=== PATIENT | female | born 1935 | race Caucasian/White ===

== ENCOUNTER 2017-03-07 01:36 | Inpatient (IN) | payer OTHER ==
[~2017-03-07] VITALS: Ht 160 cm; Wt 95.9 kg
[~2017-03-07 01:36] MED LIST: ASPI1TAB83 PEG; CALC200T PEG; FURO20TA PEG; NTRGSL/4 UT; PRED20TA PEG; [UNRECOGNIZED DRUG - CODE] PEG
[2017-03-07] MEDS ORDERED: ASPIRIN 81 MG CHEW PO STA (02:01)
[2017-03-07] MEDS ORDERED: MoRPHine SULFATE 4 MG/ML 1 ML CARP\\VIAL IV STA (02:01)
[2017-03-07] MEDS ORDERED: ONDANSETRON INJ 2 MG/ML 2 ML VIAL IV STA (02:01)
[2017-03-07] MEDS ORDERED: METO25TA3 PO (02:12)
[2017-03-07] MEDS ORDERED: METH2.5T PO (02:13)
--- NOTE | 2017-03-07 02:13 | EMERGENCY ROOM VISIT NOTE ---
History Report prepared by Harjeet: Rikki Self Under the Supervision of: Dr. Mark Sinha D.O. First contact with patient: 01:51 Chief Complaint: CHEST PAIN Stated Complaint: CHEST PAIN Nursing Triage Summary: Pt c/o midsternal chest pain/pressure starting this evening. Pt nauseous in triage. Pt took one nitro around 1230 with no relief. History of Present Illness The patient is an 81 year old female who presents to the Emergency Room with complaints of constant chest pain that began yesterday afternoon, several hours prior to arrival. The patient describes the pain as a "tightness" that wraps around her breasts. She rates the pain as a constant 9/10 in severity since onset. There is no radiation of the pain into the arms or back. She is nauseous , but has not vomited. 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 A total of ten systems were reviewed and were otherwise negative. Past Medical & Surgical Medical Problems: (1) Benign hypertension (2) CARDIAC MURMURS NEC (3) Carotid artery stenosis (4) Cerebrovascular disease (5) Chest pain (6) Generalized osteoarthritis (7) heart failure due to valvular disease (8) History of - myocardial infarction (9) MITRAL VALVE DISORDER (10) Mitral valve regurgitation (11) POLYMYALGIA RHEUMATICA (12) Tricuspid valve regurgitation Family History No pertinent family history secondary to age. Social History Smoking Status: Never Smoker Alcohol Use: none Drug Use: none Marital Status: Current/Historical Medications Scheduled Aspirin (Aspirin Chewable), 81 MG PO DAILY Calcium Carbonate-Vitamin D (Oscal 500/200 D-3), 1 TAB PO DAILY Folic Acid (Folvite), 1 MG PO DAILY Furosemide (Lasix), 20 MG PO MWF Methotrexate (Methotrexate), 20 MG PO WK Metoprolol Succ (Toprol Xl) (Toprol-Xl), 12.5 MG PO DAILY Multivitamin (Multivitamin), 1 TAB PO DAILY Prednisone (Prednisone), 5 MG PO DAILY Scheduled PRN Furosemide (Lasix), 20 MG PO WK PRN for EDEMA Nitroglycerin (Nitrostat), 0.4 MG UT UD PRN for Chest Pain Allergies Coded Allergies: Vancomycin (Verified Allergy, Intermediate, HIVES, 03/07/17) Sulfa Drugs (Verified Allergy, Unknown, 03/07/17) Trimethoprim (Verified Allergy, Unknown, 03/07/17) Physical Exam Vital Signs Date Time Temp Pulse Resp B/P (MAP) Pulse Ox O2 Delivery O2 Flow Rate FiO2 03/07/17 03:06 79 22 97 Nasal Cannula 2.0 03/07/17 02:36 84 24 98 Nasal Cannula 2.0 03/07/17 02:32 178/74 03/07/17 02:06 88 03/07/17 02:06 76 23 97 Nasal Cannula 2.0 03/07/17 02:03 176/104 03/07/17 01:52 Room Air 03/07/17 01:52 Room Air 03/07/17 01:39 36.8 87 18 234/115 92 Room Air Physical Exam GENERAL: Awake, alert, well-appearing, in no distress HENT: Normocephalic, atraumatic. Oropharynx unremarkable. EYES: Normal conjunctiva. Sclera non-icteric. NECK: Supple. No nuchal rigidity. FROM. No JVD. RESPIRATORY: Clear to auscultation. CARDIAC: Regular rate, normal rhythm. Extremities warm and well perfused. Pulses equal. ABDOMEN: Soft, non-distended. No tenderness to palpation. No rebound or guarding. No masses. RECTAL: Deferred. MUSCULOSKELETAL: Chest examination reveals no tenderness. The back is symmetrical on inspection without obvious abnormality. There is no CVA tenderness to palpation. No joint edema. LOWER EXTREMITIES: Calves are equal size bilaterally and non-tender. No edema. No discoloration. NEURO: Normal sensorium. No sensory or motor deficits noted. SKIN: No rash or jaundice noted. Medical Decision & Procedures ER Provider Diagnostic Interpretation: X ray results as stated below per my interpretation: CHEST X-RAY: Negative for infiltrate, poor inspiratory effort. Laboratory Results 03/07/17 01:55 Red Blood Count 4.05, Mean Corpuscular Volume 93.3, Mean Corpuscular Hemoglobin 31.1, Mean Corpuscular Hemoglobin Concent 33.3, Mean Platelet Volume 12.0, Neutrophils (%) (Auto) 79.7, Lymphocytes (%) (Auto) 10.2, Monocytes (%) (Auto) 8.7, Eosinophils (%) (Auto) 1.0, Basophils (%) (Auto) 0.2, Neutrophils # (Auto) 9.88, Lymphocytes # (Auto) 1.27, Monocytes # (Auto) 1.08, Eosinophils # (Auto) 0.12, Basophils # (Auto) 0.03 03/07/17 01:55 Test 03/07/17 01:55 03/07/17 01:56 White Blood Count 12.41 K/uL (4.8-10.8) Red Blood Count 4.05 M/uL (4.2-5.4) Hemoglobin 12.6 g/dL (12.0-16.0) Hematocrit 37.8 % (37-47) Mean Corpuscular Volume 93.3 fL (80-100) Mean Corpuscular Hemoglobin 31.1 pg (25-34) Mean Corpuscular Hemoglobin Concent 33.3 g/dl (32-36) Platelet Count 230 K/uL (130-400) Mean Platelet Volume 12.0 fL (7.4-10.4) Neutrophils (%) (Auto) 79.7 % Lymphocytes (%) (Auto) 10.2 % Monocytes (%) (Auto) 8.7 % Eosinophils (%) (Auto) 1.0 % Basophils (%) (Auto) 0.2 % Neutrophils # (Auto) 9.88 K/uL (1.4-6.5) Lymphocytes # (Auto) 1.27 K/uL (1.2-3.4) Monocytes # (Auto) 1.08 K/uL (0.11-0.59) Eosinophils # (Auto) 0.12 K/uL (0-0.5) Basophils # (Auto) 0.03 K/uL (0-0.2) RDW Standard Deviation 49.0 fL (36.4-46.3) RDW Coefficient of Variation 14.4 % (11.5-14.5) Immature Granulocyte % (Auto) 0.2 % Immature Granulocyte # (Auto) 0.03 K/uL (0.00-0.02) Anion Gap 7.0 mmol/L (3-11) Est Creatinine Clear Calc Drug Dose 71.6 ml/min Estimated GFR () 94.8 Estimated GFR (Non- 81.8 BUN/Creatinine Ratio 17.7 (10-20) Calcium Level 9.1 mg/dl (8.5-10.1) Total Bilirubin 0.6 mg/dl (0.2-1) Direct Bilirubin 0.2 mg/dl (0-0.2) Aspartate Amino Transf (AST/SGOT) 20 U/L (15-37) Alanine Aminotransferase (ALT/SGPT) 24 U/L (12-78) Alkaline Phosphatase 82 U/L (45-117) Total Protein 7.8 gm/dl (6.4-8.2) Albumin 3.8 gm/dl (3.4-5.0) Bedside Troponin I < 0.030 ng/ml (0-0.045) Laboratory results reviewed by me Medications Administered Medications (Trade) Dose Ordered Sig/Jeovany Route Start Time Stop Time Status Last Admin Dose Admin Aspirin (Aspirin Chew) 162 mg NOW STAT PO 03/07/17 02:01 03/07/17 02:03 DC 03/07/17 02:18 162 MG Nitroglycerin (Nitrostat Tab) 0.4 mg Q5M PRN SL 03/07/17 02:15 04/06/17 02:14 03/07/17 02:17 0.4 MG Morphine Sulfate (MoRPHine SULFATE INJ) 4 mg NOW STAT IV 03/07/17 02:01 03/07/17 02:03 DC 03/07/17 02:17 4 MG Ondansetron HCl (Zofran Inj) 4 mg NOW STAT IV 03/07/17 02:01 03/07/17 02:03 DC 03/07/17 02:18 4 MG ECG Indication: chest pain Rate (beats per minute): 84 Rhythm: normal sinus Findings: other (LAD, no obvious ischemia ) ED Course 0156: The patient was evaluated in room B4B. A complete history and physical exam was performed. 0201: Ordered Zofran 4 mg IV, Morphine Sulfate 4 mg IV, Aspiring 162 mg PO. 0215: Nitroglycerin 0.4 mg SL. 0309: Ordered Toprol Xl Tabl 12.4 mg PO. 0250: I discussed the case with Dr. Mehdi [facility] Hospitalist at this time. He will evaluate the patient for further treatment. Medical Decision Differential diagnosis: Etiologies such as cardiac ischemia, aortic dissection, pulmonary embolism, pneumonia, pneumothorax, musculoskeletal, infections, pericarditis, myocarditis , esophageal rupture, gastrointestinal, as well as others were entertained. Patient was given aspirin, morphine, nitroglycerin patient's pain went from 8 out of 10-0 out of 10. Patient's EKG is nonischemic. Do not think that the patient has a thoracic aortic dissection or pulmonary embolism at this time. The case was discussed with family. The case was discussed with the [facility] Hospitalist for admission. Patient will be admitted for acute chest pain Blood Pressure Screening Patient's blood pressure: Elevated blood pressure Consults Time Called: 0240 Consulting Physician[facility] Returned Call: 0250 I discussed the case with Dr. Mehdi Blum at this time. He will evaluate the patient for further treatment. Impression Primary Impression: Acute angina Scribe Attestation The scribe's documentation has been prepared under my direction and personally reviewed by me in its entirety. I confirm that the note above accurately reflects all work, treatment, procedures, and medical decision making performed by me. Departure Information Dispostion Being Evaluated By Hospitalist Bing Owens M.D. (PCP) Patient Instructions My [facility]
[2017-03-07] MEDS ORDERED: PRED-301 PO (02:14)
[2017-03-07] MEDS ORDERED: ASPCH81X PO (02:14)
[2017-03-07] MEDS ORDERED: MULT-506 PO (02:14)
[2017-03-07] MEDS ORDERED: FOLI1TAB7 PO (02:14)
[2017-03-07] MEDS ORDERED: CALC200T PO (02:14)
[2017-03-07] MEDS ORDERED: NITROGLYCERIN 0.4 MG SL PER TAB CHARGE SL PRN ×2 (02:15→03:30)
[2017-03-07] MEDS ORDERED: FURO-85 PO ×2 (02:16)
[2017-03-07 02:18] LABS: BASO % 0.2 %; BASO ABS # 0.03 K/uL (0-0.2); COMPLETE YES; HEMATOCRIT 37.8 % (37-47); IG% 0.2 %; LYMPH % 10.2 %; LYMPH ABS # 1.27 K/uL (1.2-3.4); MEAN CELL VOLUME 93.3 fL (80-100); MEAN CORPUSCULAR HEMOGLOBIN 31.1 pg (25-34); MEAN CORPUSCULAR HGB CONC 33.3 g/dl (32-36); MONO % 8.7 %; NEUT % 79.7 %; PLATELET COUNT 230 K/uL (130-400); RED BLOOD COUNT 4.05 M/uL (4.2-5.4); WHITE BLOOD COUNT 12.41 K/uL (4.8-10.8)
[2017-03-07 02:36] LABS: BUN/CREATININE RATIO 17.7 (10-20); CALCIUM 9.1 mg/dl (8.5-10.1); CREATININE 0.7 mg/dl (0.60-1.20)
[2017-03-07 02:39] LABS: POTASSIUM 3.7 mmol/L (3.5-5.1)
[2017-03-07] MEDS ORDERED: METOPROLOL SUCC 25MG EXT REL TAB PO STA (03:09)
[2017-03-07 03:27] LABS: MAGNESIUM 1.8 mg/dl (1.8-2.4)
[2017-03-07] MEDS ORDERED: PROCHLORPERAZINE INJ 5 MG in SYRINGE 4 ML IV PRN (03:30)
[2017-03-07] MEDS ORDERED: FUROSEMIDE 20 MG TAB PO SCH (03:30)
[2017-03-07] MEDS ORDERED: NITROGLYCERIN 0.4 MG SL PER TAB CHARGE UT PRN (03:30)
[2017-03-07 03:33] LABS: PARTIAL THROMBOPLASTIN RATIO 0.9
[2017-03-07 04:00] VITALS: BP 144/67; PULSE 90; TEMP 36.8; O2SAT 96; Ht 160 cm; Wt 95.9 kg
[2017-03-07] MEDS ORDERED: NSS + 20MEQ KCL 1000ML 1,000 ML IV ONE (04:15)
[2017-03-07 04:52] LABS: INR 1.1 (0.9-1.1); PARTIAL THROMBOPLASTIN RATIO 1.1; PROTHROMBIN TIME (PATIENT) 11.5 SECONDS (9.0-12.0)
[2017-03-07] MEDS ORDERED: IV FLUIDS COMPLETED PRN (05:00)
--- NOTE | 2017-03-07 05:27 | HISTORY & PHYSICAL EXAMINATION ---
DATE OF ADMISSION: 03/07/2017 PCP : Dr. Montana CC : chest tightness HISTORY OF PRESENT ILLNESS: History obtained from patient, family, and records. Medical history significant for chronic diastolic heart failure as per records, EF of 55% 2017 TTE, HTN, history of CVA, PVD, as per records, polymyalgia rheumatic on chronic steroid, methotrexate therapy. Recent confinement last February 2013 for dysphagia.P Patient underwent PEG tube placement, subsequent removal outpatient. A few weeks ago, patient had a fall, unable to get up as much. Tonight patient had chest tightness, no unusual shortness of breath, little short of breath, no cough symptoms. No radiation, nonpleuritic. Chest pain does not go to the back. Patient had some nausea and emesis. Denies abdominal pain, dysuria. At the Emergency Room no immediate response to nitroglycerin Subsequently responded to additional nitroglycerin along with morphine, aspirin and Zofran. Initially systolic blood pressure noted to be 234/115. Blood pressure currently 173/104. No unusual stress at home. No recent OTC intake of NSAIDs, no dietary indiscretion. MEDICAL HISTORY: As above. TTE from 08/31/2016 showed EF 55%, diastolic dysfunction, mild calcific aortic valve, MR with mitral regurgitation, tricuspid regurgitation, moderate pulmonary hypertension, aortic root moderate enlargement . No significant change from January 2016. SURGERIES: She has had PEG tube placement in the past, appendectomy, knee replacement, carpal tunnel surgery. HOME MEDICATIONS: Aspirin, [employer], Folvite, Lasix, methotrexate, Toprol XL, multivitamins, Nitrostat, prednisone. ALLERGIES: TRIMETHOPRIM, VANCOMYCIN, SULFA. FAMILY HISTORY: Heart disease. PERSONAL AND SOCIAL HISTORY: Nonsmoker, no chronic intake of alcoholic beverages. 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 REVIEW OF SYSTEMS: As per HPI, all 10 systems reviewed. All other ROS negative. PHYSICAL EXAMINATION: LABS: Exam Blood pressure was noted to be 234/115, later 160/104, pulse rate 88, RR 22, temperature 36.8, sats 92 on room air. GENERAL: Pleasant. Noted to be slightly anxious, obese, no respiratory distress. SKIN: Normal color. Warm. HEENT: [place] palpebral conjunctiva. No ptosis. Dry buccal mucosa. NECK: Short. No tenderness. CHEST: Clear to auscultation. No tenderness. HEART: Regular rate and rhythm, systolic murmur. ABDOMEN: Some distension, nontender. EXTREMITIES: Minimal LE edema, no tenderness. No gross deformities. NEUROLOGIC: Coherent. No gross focality. LABORATORIES: Hemoglobin was noted to be 12.6, hematocrit 37.8, white cell count 12.31, platelets 230. Sodium was noted to be 136, potassium 3.7, chloride 104, CO2 28, BUN 12, creatinine 0.7, glucose 149. Troponin negative. Chest x-ray as per my interpretation atelectasis, enlarged mediastinum, prominent aortic knob. EKG as per my interpretation, rate 85, normal sinus rhythm, LAD, LAFB, some T-wave flattening in inferior leads. ASSESSMENT: 1. Chest pain secondary to hypertensive urgency unclear precipitant. 2. History of cerebrovascular accident/ peripheral vascular disease as per records 3. Chronic diastolic heart failure as per records, euvolemic to dry 4. ambulatory dysfunction, fall risk. 5. Polymyalgia rheumatica on chronic steroid, MTRX rx. 6. Steroid induced hyperglycemia ro DM PLAN: Observation PCU Increase by home PO beta quintin to twice a day dosing Follow cardiac markers. PT, OT evaluation. check hemoglobin A1c. DVT prophylaxis, Lovenox subQ. Full code. Patient requesting that her son, Mello, be updated of plan of care. DEEPTHI
--- NOTE | 2017-03-07 07:22 | DIAGNOSTIC IMAGING REPORT ---
CHEST ONE VIEW PORTABLE CLINICAL HISTORY: Chest pain. COMPARISON STUDY: Chest radiograph February 14, 2013. FINDINGS: There is no pneumothorax. A small left pleural effusion is noted. There may be a trace right pleural effusion. There is no evidence for pulmonary edema. The patient is rotated. There is prominence of the right mediastinal contour. Moderate enlargement of the cardiac silhouette is noted. There is no consolidation to suggest pneumonia. IMPRESSION: 1. Mediastinal widening with prominence for the contour of the ascending aorta. This finding may be related to patient rotation however aneurysmal dilatation of the ascending aorta could have this appearance. A dissection protocol CT of the chest is recommended. Discussed with Dr. David at time of dictation. 2. Small left pleural effusion. 3. Cardiomegaly without evidence of pulmonary edema. Electronically signed by: Alexander Franks M.D. 03/07/2017 7:21 AM Dictated Date/Time: 03/07/2017 7:02 AM
[2017-03-07 07:30] VITALS: BP 128/77; PULSE 79; TEMP 36.7; O2SAT 98
[2017-03-07] MEDS ORDERED: OPTIRAY 320 IV PRN (07:30)
[2017-03-07 08:32] LABS: URINE APPEARANCE CLEAR (CLEAR); URINE BILIRUBIN NEG (NEG); URINE COLOR DK YELLOW; URINE EPITHELIAL CELL AUTO 20-30 /lpf (0-5); URINE NITRITE NEG (NEG); URINE SPECIFIC GRAVITY 1.019 (1.000-1.030); UROBILINOGEN NEG (NEG); ZZUR CULT IF INDIC CLEAN CATCH NO
[2017-03-07 08:36] LABS: ESTIMATED AVERAGE GLUCOSE 105 mg/dl; HA1C FLAG Normal (Normal)
[2017-03-07 08:40] LABS: MANUAL MICROSCOPIC REQUIRED? NO; REVIEW REQ? NO
[2017-03-07] MEDS: ENOXAPARIN 40 MG/0.4 ML SYR SC SCH (09:00)
--- NOTE | 2017-03-07 09:22 | DIAGNOSTIC IMAGING REPORT ---
CHEST COMBO ANGIOGRAPHY CLINICAL HISTORY: R/O AORTIC DISSECTION chest pain TECHNIQUE: Multi phase CT acquisition with three-dimensional reconstruction COMPARISON STUDY: None FINDINGS: Moderate aneurysmal dilatation a sending aspect thoracic aorta. Maximum transaxial dimensions are 4.4 x 4.5 cm. The descending thoracic aorta shows mild left ischemic change but is negative for aneurysm or dissection. Heart is moderately enlarged. Pulmonary vasculature enhances appropriately. There are several indeterminate mediastinal and/or hilar nodes measuring up to 1.9 cm in the subcarinal region. There are small bilateral pleural effusions. There is bilateral lower lobe atelectasis. There are considerable degenerative changes of the thoracic spine. There are several moderate compression deformities of several lower thoracic vertebral contreras felt to be nonacute. The T10 vertebral body is partially sclerotic presumably secondary to the healing component of a previous compression deformity. IMPRESSION: 1. 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 2. Moderate cardiomegaly. 3. Moderate bilateral pleural effusions with bilateral lower lobe atelectatic/infiltrative change. 4. Several mediastinal and/or hilar nodes most likely reactive. 5. Several moderate compression deformities of the thoracic spine considered old. 6. Considerable degenerative disc change of the entire thoracic spine. The above report was generated using voice recognition software. It may contain grammatical, syntax or spelling errors. Electronically signed by: Louis Garrett M.D. 03/07/2017 9:21 AM Dictated Date/Time: 03/07/2017 9:08 AM
--- NOTE | 2017-03-07 09:29 | DIAGNOSTIC IMAGING REPORT ---
ANGIO ABD/PELVIS WITH CONTRAST CLINICAL HISTORY: 81 years-old Female with R/O AORTIC DISSECTION acute atypical chest pain with concern for aortic dissection. COMPARISON STUDY: CTA chest of same day. TECHNIQUE: Following the IV administration of 93 cc of Optiray 320, CT angiogram of the abdomen and pelvis was performed from the lung bases the proximal femora. Images are reviewed in the axial, sagittal, and coronal planes. 3-D MIPS images are created and assessed. IV contrast was administered without complication. A dose lowering technique was utilized adhering to the principles of ALARA. FINDINGS: CTA: There is at least moderate multichamber cardiac enlargement with trace pericardial effusion. Calcifications of the mitral annulus are noted. There is moderate mixed atheromatous and atherosclerotic plaquing of the abdominal aorta and iliac vasculature. There is no abdominal aortic aneurysm or dissection identified. There is mild infrarenal abdominal aortic ectasia measuring up to 2.1 x 2.2 cm. There is atherosclerotic plaquing at the level the celiac trunk causing approximately 50% narrowing. Atherosclerotic plaquing at the origin of the superior mesenteric artery causes less than 50% stenosis. The inferior mesenteric artery is patent. Atheromatous plaquing at the origin of the right renal artery causes approximately 50% narrowing. Mixed plaquing at the origin of the left renal artery is noted without significant stenosis. The bilateral common, internal and external iliac arteries and imaged femoral arteries appear patent and within normal limits. CT ABDOMEN/PELVIS: Small left and trace right pleural effusions with left greater than right bibasilar consolidation and mild bronchial wall thickening. There is mild gallbladder distention. The liver, spleen, pancreas and right adrenal gland are unremarkable. Nonspecific soft tissue attenuating nodular lesions are seen posterior to the right hepatic lobe with 2 foci noted measuring up to 1.2 x 0.7 cm (nicely seen on image 127 series 8). There is mild thickening of the left adrenal gland which is nonspecific. Additionally, there is mild stranding surrounding the left adrenal gland as seen on image 109 series 8. Mild bilateral renal cortical thinning. Low attenuating lesions of the kidneys bilaterally suggests cysts, largest of which measures 1.2 cm within the superior pole right kidney. There is no renal calculi or hydronephrosis. Ureters are unremarkable. Urinary bladder is partially collapsed. Mild wall thickening with surrounding stranding is noted involving the bladder. Calcified fibroids are seen, largest of which measures up to 2.7 x 2.4 cm within the right uterus. No definite adnexal mass lesions. No bulky adenopathy. There is no bowel obstruction or focal bowel wall thickening. Mild colonic diverticulosis without diverticulitis. No evidence of acute appendicitis. Soft tissues are unremarkable. The bones appear osteopenic. Multilevel degenerative changes of the spine. 30% anterior endplate compression deformity involves the T10 vertebral body without retropulsion identified. Additionally, there are linear lucencies noted involving the spinous processes at T9 and T10 suspicious for acute fractures. These findings appear new from comparison chest CT 07/27/2012. IMPRESSION: 1. No acute aortic dissection or aneurysm. 2. Mixed plaquing at the origin of the celiac trunk causes approximately 50% narrowing. 3. Nonspecific soft tissue attenuating nodules are seen posterior to the right hepatic lobe measuring up to 1.2 cm. 4. Small left and trace right pleural effusions with bibasilar consolidation suggesting atelectasis and/or pneumonitis. 5. 30% anterior endplate compression deformity of the T10 vertebral body without retropulsion is new from prior exam and suspicious for acute fracture. Linear lucencies involving the T9 and T10 spinous processes also seen suspicious for acute fracture. The above report was generated using voice recognition software. It may contain grammatical, syntax or spelling errors. Electronically signed by: Phuc Almanzar M.D. 03/07/2017 9:28 AM Dictated Date/Time: 03/07/2017 9:12 AM
[2017-03-07] MEDS: POTASSIUM CHLORIDE 10 MEQ TABCR PO SCH (09:50)
[2017-03-07] MEDS: MULTIVITAMIN TAB PO SCH (09:50)
[2017-03-07 11:04] VITALS: BP 103/62; PULSE 74; TEMP 38.1; O2SAT 97
--- NOTE | 2017-03-07 12:11 | CARDIOLOGY CONSULTATION ---
DATE OF CONSULTATION: 03/07/2017 REFERRING: Dr. Myrick. PRIMARY CARE PHYSICIAN: Dr. Montana. INDICATIONS: Chest and abdominal pain, marked hypertension. HISTORY OF PRESENT ILLNESS: The patient is an 81-year-old female whose history is notable for: 1. Chronic polymyalgia rheumatica on chronic prednisone therapy. 2. History of prior catecholamine-induced cardiomyopathy, July 2012 while hospitalized for multifactorial respiratory failure. 3. History of hypertension, hypertensive heart disease. 4. Dilated ascending aorta. 5. Moderate mitral and tricuspid regurgitation. 6. History of statin-induced myalgias. The patient presents this admission noting having developed severe sharp pain under the left breast and back last evening while sitting quietly, symptoms were unrelenting and not responsive to nitrates or mobility or motion are worse with twisting and standing. She subsequently presented to the Emergency Room and has been hospitalized. Evaluation since admission was included cardiac enzymes which are negative for injury or infarct, EKGs which demonstrated no acute evolution or findings with sinus and sinus tachycardia, atrial ectopic beats. CT angiography revealed no acute dissection. There is a suspicion of an acute thoracic vertebral fracture with chronic disease present. Blood pressures on initial presentation were significantly elevated, but are coming under control this morning. She continues to have a low grade level pain worse with exacerbation of movement in her left precordial and epigastric area radiating to her back. Symptoms have not resolved since admission. REVIEW OF SYSTEMS: The patient denies recent fevers, chills, sweats, cough, hoarseness, wheeze or hemoptysis. Notes no melena or hematochezia, dysuria or hematuria. Blood pressures per patient have been generally well controlled. She is active about her home to a low level degree without limitations or change in functional capacity. Appetite and weight have been stable. She denies headache or visual changes, has headache today with topical nitrates administered. ALLERGIES: SULFA AND VANCOMYCIN. MEDICATIONS PRIOR TO HOSPITALIZATION: Aspirin 81 mg per day, calcium carbonate 500/200 once per day, folic acid 1 mg per day, furosemide 20 mg Tuesday, Tuesday, Tuesday and p.r.n., methotrexate 20 mg weekly, metoprolol succinate 12.5 mg daily, multivitamin per day, and prednisone 5 mg per day. PAST SURGICAL HISTORY: Notable for prior appendectomy, knee replacement, carpal tunnel surgery. FAMILY HISTORY: Positive for heart disease in father and mother. SOCIAL HISTORY: The patient is a nonsmoker, nondrinker. She is moderately active about her home. PHYSICAL EXAMINATION: GENERAL: The patient is an age-appropriate female, in no acute distress. VITAL SIGNS: Heart rate is 74, blood pressure is 128/77. HEENT: Normocephalic, atraumatic. Nares without discharge. Throat was clear. NECK: Supple. There is no thyromegaly. There is no lymphadenopathy. There is no audible carotid bruit. LUNGS: Clear to auscultation. CARDIOVASCULAR: Regular with somewhat distant heart sounds. There is no audible murmur or rub. PMI is nondisplaced. Chest reveals marked tenderness to palpation especially with movements of left subxiphoid area. ABDOMEN: Soft, nontender. There is no palpable hepatosplenomegaly. There is no hepatojugular reflux. EXTREMITIES: Without cyanosis or clubbing. There is no peripheral edema. There are intact distal pulses. There is no break or femoral delay. NEUROLOGIC: The patient is alert, answering questions appropriately. LABORATORY DATA: On presentation, white cell count is 12.4, hemoglobin is 12.6. Sodium was 139, potassium 3.7, chloride 104, bicarbonate 28, BUN 12, creatinine 0.7, glucose is 149. AST and ALT are normal. Troponin I is negative on 2 testings. Albumin level is 3.8, lipase is 100. IMAGING DATA: Chest x-ray revealed no infiltrate or edema. CT scan of the chest demonstrated chronic aneurysmal dilatation of the ascending thoracic aorta, diffuse degenerative disease of the spine. CTA to exclude aortic dissection revealed no evidence of aortic dissection with intravascular plaquing. There was notable T10 vertebral fracture, suspicious for acute fracture. IMPRESSION: An 81-year-old female with history of past catecholamine-mediated cardiomyopathy in 2012, longstanding hypertension, hypertensive heart disease with prior normal left ventricular function, presents now with severe chest and back pain. Symptoms appear to be mediated by possible vertebral fracture with negative cardiac enzymes, negative CT angiography and no acute findings on EKG. I agree with upward titration of beta blockers to 12.5 mg of metoprolol twice per day. Blood pressures have come under control since admission, but will need to be followed closely in hospital. The patient's pain remains persistent and likely to be mediated by vertebral fracture in the setting of multiple risk factors including chronic steroid use, osteoporosis. Will follow the patient in the hospital.
[2017-03-07] MEDS: TRAMADOL HCL 50 MG TAB PO PRN (14:21)
[2017-03-07] MEDS: HYDROmorphone INJ 0.5 MG/0.5 ML SYR IV PRN ×2 (15:29→20:06)
[2017-03-07 15:37] VITALS: BP 157/82; PULSE 84; TEMP 37.9; O2SAT 87
[2017-03-07 20:00] VITALS: BP 131/79; PULSE 88; TEMP 37.3; O2SAT 92
[2017-03-07] MEDS: METOPROLOL SUCC 25MG EXT REL TAB PO SCH (20:04)
[2017-03-08] VITALS (7 sets, daily range): BP systolic 123–179; BP diastolic 65–80; PULSE 72–94; TEMP 36.7–37.2; O2SAT 90–99
[2017-03-08] MEDS: ACETAMINOPHEN 325 MG TAB PO PRN ×2 (05:24→17:49)
[2017-03-08 06:29] LABS: BASO % 0.1 %; BASO ABS # 0.01 K/uL (0-0.2); COMPLETE YES; EOS % 0.1 %; HEMATOCRIT 33.3 % (37-47); IG% 0.1 %; LYMPH % 12.7 %; LYMPH ABS # 1.03 K/uL (1.2-3.4); MEAN CELL VOLUME 94.6 fL (80-100); MEAN CORPUSCULAR HEMOGLOBIN 30.7 pg (25-34); MEAN CORPUSCULAR HGB CONC 32.4 g/dl (32-36); MEAN PLATELET VOLUME 11.8 fL (7.4-10.4); MONO % 14.8 %; NEUT % 72.2 %; PLATELET COUNT 167 K/uL (130-400); RED BLOOD COUNT 3.52 M/uL (4.2-5.4); WHITE BLOOD COUNT 8.12 K/uL (4.8-10.8)
[2017-03-08 07:01] LABS: BUN/CREATININE RATIO 26.2 (10-20); CALCIUM 8.8 mg/dl (8.5-10.1); CREATININE 0.6 mg/dl (0.60-1.20); POTASSIUM 3.8 mmol/L (3.5-5.1)
[2017-03-08] MEDS ORDERED: METHOTREXATE 2.5 MG TAB PO SCH (08:00)
[2017-03-08] MEDS: ASPIRIN 81 MG ECTAB PO SCH (08:42)
[2017-03-08] MEDS: POTASSIUM CHLORIDE 10 MEQ TABCR PO SCH (08:42)
[2017-03-08] MEDS: ENOXAPARIN 40 MG/0.4 ML SYR SC SCH (08:42)
[2017-03-08] MEDS: MULTIVITAMIN TAB PO SCH (08:45)
[2017-03-08] MEDS: METOPROLOL SUCC 25MG EXT REL TAB PO SCH ×2 (08:45→20:33)
--- NOTE | 2017-03-08 12:44 | Pain Management Consultation ---
Pain Management Consultation Date of Consultation Mar 08, 2017. Reason for Consultation 81-year-old female reporting inferior portion of sternum discomfort since a fall in January 2017. She states the pain is worse with deep palpation and better with tramadol and shallow breathing. She states that it is difficult at times to catch her breath due to deep pressure and aching discomfort. She denies any radiation component of her pain whether be wrapping around her chest or to the back. She states the pain ranges between 3 and 8 out of 10 currently 3 out of 10. She has not tried any interventional techniques and has only utilize Tylenol prior to admission for pain control. On CT imaging during this hospitalization she was noted to have a acute T10 compression fracture which she states is mildly tender but not very problematic for her. She states that she's had low-grade low back pain for a number of decades but nothing serious enough to warrant evaluation. The bowel or bladder incontinence, motor weakness, foot drop, additional falls at today's visit. 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 (16) Chest pain (17) Acute angina Family History Family Hx Review: history personally reviewed by me Social / Work History Alcohol Use: none Drug Use: none Marital Status: Housing Status: lives alone Occupation: retired Allergies Coded Allergies: Vancomycin (Verified Allergy, Intermediate, HIVES, 03/07/17) Sulfa Drugs (Verified Allergy, Unknown, 03/07/17) Trimethoprim (Verified Allergy, Unknown, 03/07/17) Medications Current Inpatient Medications Medications (Trade) Dose Ordered Sig/Jeovany Route Start Time Stop Time Status Last Admin Dose Admin Metoprolol Succinate (Toprol Xl Tab) 12.5 mg BID PO 03/07/17 21:00 04/06/17 20:59 03/08/17 08:45 12.5 MG Enoxaparin Sodium (Lovenox Inj) 40 mg Q24H SC 03/07/17 09:00 04/06/17 08:59 12/5/17 08:42 40 MG Acetaminophen (Tylenol Tab) 650 mg Q4H PRN PO 03/07/17 03:30 04/06/17 03:29 03/08/17 05:24 650 MG Tramadol HCl (Ultram Tab) 25 mg Q6H PRN PO 03/07/17 03:30 04/06/17 03:29 03/07/17 14:21 25 MG Hydromorphone HCl (Dilaudid Inj) 0.5 mg Q4H PRN IV 03/07/17 03:30 03/21/17 03:29 03/07/17 20:06 0.5 MG Prochlorperazine Edisylate 5 mg/ Syringe 5 ml @ 5 mls/min Q6H PRN IV 03/07/17 03:30 04/06/17 03:29 Aspirin (Ecotrin Tab) 81 mg QAM PO 03/08/17 09:00 04/07/17 08:59 03/08/17 08:42 81 MG Folic Acid (Folvite Tab) 1 mg DAILY PO 03/07/17 09:00 04/06/17 08:59 03/08/17 08:42 1 MG Multivitamins (Multivitamin Tab) 1 tab DAILY PO 03/07/17 09:00 04/06/17 08:59 03/08/17 08:45 1 TAB Nitroglycerin (Nitrostat Tab) 0.4 mg UD PRN UT 03/07/17 03:30 04/06/17 03:29 Prednisone (PredniSONE TAB) 5 mg DAILY PO 03/07/17 09:00 04/06/17 08:59 03/08/17 08:45 5 MG Potassium Chloride (Klor-Con M10) 20 meq DAILY PO 03/07/17 09:00 04/06/17 08:59 03/08/17 08:42 20 MEQ Methotrexate (Methotrexate Tab) 20 mg Tu@0800 PO 03/08/17 08:00 04/07/17 07:59 03/08/17 08:45 20 MG Miscellaneous (Iv Fluids Completed) 1 ea PRN PRN N/A 03/07/17 05:00 03/07/18 04:59 Ioversol (Optiray 320) 125 ml UD PRN IV 03/07/17 07:30 03/11/17 07:29 Review of Systems 10 point review of systems was otherwise negative aside from HPI Physical Exam Height & Weight: Height 5 feet, 3.00 inches. Weight 98.400 (Kilograms) 208 (Pounds) Last Vital Signs Documentation Date Time Temp Pulse Resp B/P (MAP) Pulse Ox O2 Delivery O2 Flow Rate FiO2 03/08/17 11:29 36.9 94 20 123/79 (94) 90 03/08/17 07:30 Nasal Cannula 2.0 Exam: GENERAL: 81-year-old female who is awake, alert and oriented. Appears well developed. Is in no distress at the present time. He is accompanied by her brother on today's examination PSYCHIATRIC: Demonstrates normal and clear sensorium. Mood and affect are appropriate. Short-term and long-term memory is intact. HEAD AND NECK: No obvious trauma. Demonstrates slightly decreased range of motion of the cervical spine. No lymphadenopathy is noted. Trachea midline. No thyromegaly noted. EARS, EYES AND NOSE: Mucous membranes pink and moist. No mucosal lesions noted. Tongue midline. LUNGS: No audible wheezes or rhonchi Normal chest excursion. She has re- creation of her pain to deep palpation over her inferior costochondral joints. There is possibility that a solitary trigger point exists in addition to break regression of her pain over her costochondral region. She does not have increasing pain to deep palpation over the rest of her rib cage. BREASTS: Deferred. CARDIAC: Regular rate and rhythm ABDOMEN: Normal bowel sounds. Soft nontender. No organomegaly appreciated. BACK: Inspection of the lumbar spine demonstrates decreased lordotic curvatures. No lesions are noted in the lumbar spine region. Provocative testing of the facet joints and the sacroiliac joints bilaterally including 5 provocative tests are negative. No myofascial tenderness or trigger points identifiable in the paraspinous musculature. Neurologically, straight leg raising is negative bilaterally past 90 and no changes noted Achilles stretch. She does have mild tenderness over around T10 but not anything I would grade higher than mild NEUROLOGICAL: Cranial nerves II through XII grossly intact. No gross sensory or motor deficits noted in the upper extremity. Sensation and motor strength in the lower extremity are symmetrical without deficit. No pathologic reflexes are noted in the lower extremities. Reflexes: Of bilateral upper and lower extremities were graded at 1+. Gait was not observed Laboratory Laboratory Review: results personally reviewed by me Laboratory Results (Last CBC): 03/07/2017 LFTs within normal limits 03/08/17 06:00 Red Blood Count 3.52 L, Mean Corpuscular Volume 94.6, Mean Corpuscular Hemoglobin 30.7, Mean Corpuscular Hemoglobin Concent 32.4, Mean Platelet Volume 11.8 H, Neutrophils (%) (Auto) 72.2, Lymphocytes (%) (Auto) 12.7, Monocytes (%) (Auto) 14.8, Eosinophils (%) (Auto) 0.1, Basophils (%) (Auto) 0.1, Neutrophils # (Auto) 5.86, Lymphocytes # (Auto) 1.03 L, Monocytes # (Auto) 1.20 H, Eosinophils # (Auto) 0.01, Basophils # (Auto) 0.[address] Findings Patient: CARMEN LEE Address1: [address] [place] [address] Rec: [id number] Address2: Acct ID: [id number] [facility] Zip: [place] [address] Date: 1935 Sex: F Room/Bed: [facility] Ref Phy: Omid Montana D.O. SC: [email or web address] Att Phy: Mello David M.D. Report #: [id number] Cinthia Phy: Omid Montana D.O. Test: CXCA Admit Phy: Waqas Myrick M.D. Desktop Specialist: TOPHER Interpreting Phy: Louis Garrett M.D. Diagnosis: CHEST PAIN Ordering Phy: Mello David M.D. Service Date: 03/07/17 Admit Date: 03/07/1712/04/17 MNE: [id number] CONF: DICTATED BY: Louis Garrett M.D.]] CC: Omid Montana D.O. Wong, Gary K., M.D. Endcc: [~ rep ct add3]] CHEST COMBO ANGIOGRAPHY CLINICAL HISTORY: R/O AORTIC DISSECTION chest pain TECHNIQUE: Multi phase CT acquisition with three-dimensional reconstruction COMPARISON STUDY: None FINDINGS: Moderate aneurysmal dilatation a sending aspect thoracic aorta. Maximum transaxial dimensions are 4.4 x 4.5 cm. The descending thoracic aorta shows mild left ischemic change but is negative for aneurysm or dissection. Heart is moderately enlarged. Pulmonary vasculature enhances appropriately. There are several indeterminate mediastinal and/or hilar nodes measuring up to 1.9 cm in the subcarinal region. There are small bilateral pleural effusions. There is bilateral lower lobe atelectasis. There are considerable degenerative changes of the thoracic spine. There are several moderate compression deformities of several lower thoracic vertebral contreras felt to be nonacute. The T10 vertebral body is partially sclerotic presumably secondary to the healing component of a previous compression deformity. IMPRESSION: 1. 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 2. Moderate cardiomegaly. 3. Moderate bilateral pleural effusions with bilateral lower lobe atelectatic/infiltrative change. 4. Several mediastinal and/or hilar nodes most likely reactive. 5. Several moderate compression deformities of the thoracic spine considered old. 6. Considerable degenerative disc change of the entire thoracic spine. No rib fractures noted on CT after review with radiologist today 03/08/2017 Past Records Previous Records: none available for review Opioid Risk Assessment Risk assessment performed, no issues identified Assessment 1. Atypical chest pain suspect costochondritis 2. Polymyalgia rheumatica on steroids chronically 3. T10 compression fracture without significant retropulsion 4. Lumbago Recommendations 1. Will add Lidoderm patch today to diminish pain. Orders were written. She may continue to utilize tramadol on a when necessary basis as required for pain control. 2. Consider addition of nonsteroidal anti-inflammatory if okay with hospitalist. Orders were not written 3. Could consider possible costochondral joint injection in the future should she fail conservative measures 4. As patient is not having significant amount of pain over her T10 compression fracture site would not recommend bracing at this time but could consider in the future should she have increasing pain. She is not a candidate for kyphoplasty in my opinion at this time 5. Will follow up with her tomorrow to determine if injection is warranted.
[2017-03-08] MEDS: TRAMADOL HCL 50 MG TAB PO PRN ×2 (13:01→23:40)
--- NOTE | 2017-03-08 17:46 | Progress Note ---
Medicine Progress Note Date & Time of Visit: Mar 08, 2017 at 17:45. Subjective Patient was initially seen this morning. Patient reports having symptoms only when she is standing or moving around. She denies pain at rest. Denies any other symptoms at this time. Tolerating PO without difficulty. Was paged later in the evening that the patient was having SOB/chest tightness but not chest pain. States her symptoms are improving but she feels she has a nonproductive cough and some wheezing. Objective Last 8 Hrs Date Time Temp Pulse Resp B/P (MAP) Pulse Ox O2 Delivery O2 Flow Rate FiO2 03/08/17 16:00 92 Room Air 03/08/17 16:00 37.2 72 20 176/71 (106) 92 Room Air 03/08/17 12:00 94 Room Air 03/08/17 11:29 36.9 94 20 123/79 (94) 90 Physical Exam: GENERAL: Patient is in no acute distress. HEENT: No acute trauma, normocephalic, mucous membranes moist, no nasal congestion, no scleral icterus. Conjunctivae clear NECK: No stridor, trachea is midline. LUNGS: Clear to auscultation bilaterally, no wheeze, no rhonchi, breath sounds equal. HEART: Without murmurs gallops or rubs, regular rate and rhythm. ABDOMEN: Soft, nontender, bowel sounds positive, no hepatosplenomegaly EXTREMITIES: No cyanosis or edema NEUROLOGIC: Oriented x 3, no acute motor or sensory deficits, no focal weakness. SKIN: No rash, no jaundice, no diaphoresis. Laboratory Results: Last 24 Hours Test 03/08/17 06:00 White Blood Count 8.12 K/uL Red Blood Count 3.52 M/uL Hemoglobin 10.8 g/dL Hematocrit 33.3 % Mean Corpuscular Volume 94.6 fL Mean Corpuscular Hemoglobin 30.7 pg Mean Corpuscular Hemoglobin Concent 32.4 g/dl Platelet Count 167 K/uL Mean Platelet Volume 11.8 fL Neutrophils (%) (Auto) 72.2 % Lymphocytes (%) (Auto) 12.7 % Monocytes (%) (Auto) 14.8 % Eosinophils (%) (Auto) 0.1 % Basophils (%) (Auto) 0.1 % Neutrophils # (Auto) 5.86 K/uL Lymphocytes # (Auto) 1.03 K/uL Monocytes # (Auto) 1.20 K/uL Eosinophils # (Auto) 0.01 K/uL Basophils # (Auto) 0.01 K/uL RDW Standard Deviation 49.7 fL RDW Coefficient of Variation 14.5 % Immature Granulocyte % (Auto) 0.1 % Immature Granulocyte # (Auto) 0.01 K/uL Sodium Level 138 mmol/L Potassium Level 3.8 mmol/L Chloride Level 103 mmol/L Carbon Dioxide Level 29 mmol/L Anion Gap 6.0 mmol/L Blood Urea Nitrogen 16 mg/dl Creatinine 0.60 mg/dl Est Creatinine Clear Calc Drug Dose 83.6 ml/min Estimated GFR () 99.8 Estimated GFR (Non- 86.1 BUN/Creatinine Ratio 26.2 Random Glucose 92 mg/dl Calcium Level 8.8 mg/dl Magnesium Level 2.0 mg/dl Assessment & Plan ATYPICAL CHEST PAIN: -likely secondary to hypertensive urgency or musculoskeletal origin -does not seem associated with indigestion or eating -Cardiology consulted, appreciate recs, not likely from cardiac etiology -repeat a CXR given complaints of cough/wheezing per patient T10 VERTEBRAL COMPRESSION FRACTURE: -pain control -Pain management consulted for additional recommendations, appreciate recs HX OF CVA and PVD -as per records -continue on ASA and bp control CHRONIC DIASTOLIC HEART FAILURE: -euvolemic to dry -monitor fluid status AMBULATORY DYSFUNCTION: -fall risk PMR: -continued on chronic steroids HYPERGLYCEMIA: -likely steroid induced -HbA1c 5.3% -monitor Current Inpatient Medications: Current Inpatient Medications Medications (Trade) Dose Ordered Sig/Jeovany Route Start Time Stop Time Status Last Admin Dose Admin Metoprolol Succinate (Toprol Xl Tab) 12.5 mg BID PO 03/07/17 21:00 04/06/17 20:59 03/08/17 08:45 12.5 MG Enoxaparin Sodium (Lovenox Inj) 40 mg Q24H SC 03/07/17 09:00 04/06/17 08:59 03/08/17 08:42 40 MG Acetaminophen (Tylenol Tab) 650 mg Q4H PRN PO 03/07/17 03:30 04/06/17 03:29 03/08/17 05:24 650 MG Tramadol HCl (Ultram Tab) 25 mg Q6H PRN PO 03/07/17 03:30 1/3/18 03:29 03/08/17 13:01 25 MG Hydromorphone HCl (Dilaudid Inj) 0.5 mg Q4H PRN IV 03/07/17 03:30 03/21/17 03:29 03/07/17 20:06 0.5 MG Prochlorperazine Edisylate 5 mg/ Syringe 5 ml @ 5 mls/min Q6H PRN IV 03/07/17 03:30 04/06/17 03:29 Aspirin (Ecotrin Tab) 81 mg QAM PO 03/08/17 09:00 04/07/17 08:59 03/08/17 08:42 81 MG Folic Acid (Folvite Tab) 1 mg DAILY PO 03/07/17 09:00 04/06/17 08:59 03/08/17 08:42 1 MG Multivitamins (Multivitamin Tab) 1 tab DAILY PO 03/07/17 09:00 04/06/17 08:59 03/08/17 08:45 1 TAB Nitroglycerin (Nitrostat Tab) 0.4 mg UD PRN UT 03/07/17 03:30 04/06/17 03:29 Prednisone (PredniSONE TAB) 5 mg DAILY PO 03/07/17 09:00 04/06/17 08:59 03/08/17 08:45 5 MG Potassium Chloride (Klor-Con M10) 20 meq DAILY PO 03/07/17 09:00 04/06/17 08:59 03/08/17 08:42 20 MEQ Methotrexate (Methotrexate Tab) 20 mg Tu@0800 PO 03/08/17 08:00 04/07/17 07:59 03/08/17 08:45 20 MG Miscellaneous (Iv Fluids Completed) 1 ea PRN PRN N/A 03/07/17 05:00 03/07/18 04:59 Ioversol (Optiray 320) 125 ml UD PRN IV 03/07/17 07:30 03/11/17 07:29 Lidocaine (Lidoderm Patch 5%) 1 patch QAM TD 03/09/17 09:00 04/08/17 08:59 Miscellaneous (Remove Lidoderm Patch) 1 ea DAILY@21 N/A 03/08/17 21:00 04/07/17 20:59
[2017-03-08] MEDS ORDERED: ALBUT/IPRATROP 3MG/0.5MG NEB 3 ML VIAL INH PRN (19:00)
[2017-03-09] VITALS (14 sets, daily range): BP systolic 117–177; BP diastolic 67–88; PULSE 68–132; TEMP 36.4–37.2; O2SAT 95–99
[2017-03-09] MEDS: MULTIVITAMIN TAB PO SCH (07:23)
[2017-03-09] MEDS: POTASSIUM CHLORIDE 10 MEQ TABCR PO SCH (07:23)
[2017-03-09] MEDS: ASPIRIN 81 MG ECTAB PO SCH (07:23)
[2017-03-09] MEDS: LIDODERM (LIDOCAINE) PATCH 5% TD SCH (07:24)
[2017-03-09] MEDS: ENOXAPARIN 40 MG/0.4 ML SYR SC SCH (07:24)
[2017-03-09] MEDS: METOPROLOL SUCC 25MG EXT REL TAB PO SCH (07:58)
--- NOTE | 2017-03-09 09:28 | Pain Management Progress Note ---
Pain Management Progress Note Date of Service Mar 09, 2017. Subjective Mrs. Bhagat is an 81 year old white female with pain in the sternal region radiating bilaterally under the breasts. She states that she was experiencing increased pain last night with positional changes and had difficulty sleeping. This morning a Lidocaine patch was applied onto her chest and reports moderate pain relief. Pain is currently 2/10. Patient is able to make more positional changes and is pleased with the current pain relief results. She feels like she is able to take in a deeper breath since yesterday. No coughing, abdominal pain, changed back pain, or constitutional complaints. Case discussed with Dr. Shcmitz Pain Location 1 - Objective Vital Signs: Last Vital Signs Documentation Date Time Temp Pulse Resp B/P (MAP) Pulse Ox O2 Delivery O2 Flow Rate FiO2 03/09/17 07:45 Nasal Cannula 2.0 03/09/17 07:20 36.8 73 18 139/67 (91) 98 Physical Exam: GENERAL: Mrs. Bhagat is an 81 y/o white female that appears her stated age. Speech and cognition is intact. Mood and affect is appropriate. Sitting in the exam room, in no acute distress. CHEST: Regular chest respiration and excursion. There is tenderness along the inferior costosternal and costochondral joints. There is no intercostal tenderness. Mild increase in pain with AP and lateral chest compression. NEURO: CN II-XII grossly intact with no focal deficits noted. AAO x 3. SKIN: No lesions, erythema, or rashes noted. Laboratory Laboratory Findings 03/08/17 06:00 Red Blood Count 3.52 L, Mean Corpuscular Volume 94.6, Mean Corpuscular Hemoglobin 30.7, Mean Corpuscular Hemoglobin Concent 32.4, Mean Platelet Volume 11.8 H, Neutrophils (%) (Auto) 72.2, Lymphocytes (%) (Auto) 12.7, Monocytes (%) (Auto) 14.8, Eosinophils (%) (Auto) 0.1, Basophils (%) (Auto) 0.1, Neutrophils # (Auto) 5.86, Lymphocytes # (Auto) 1.03 L, Monocytes # (Auto) 1.20 H, Eosinophils # (Auto) 0.01, Basophils # (Auto) 0.01 Assessment 1. Atypical chest pain suspect costochondritis 2. Polymyalgia rheumatica on steroids chronically 3. T10 compression fracture without significant retropulsion 4. Lumbago Recommendations 1. Continue Tramadol and Lidocaine patch 2. Patient reports adequate pain relief since the application of the Lidocaine patch this morning. 3. Plan to see the patient tomorrow, if she continues to uncontrolled pain tonight then a costochondral joint injection may be warranted.
[2017-03-09] MEDS ORDERED: METOPROLOL TARTRATE 25 MG TAB PO ONE (13:45)
[2017-03-09 14:07] LABS: BUN/CREATININE RATIO 28.7 (10-20); CALCIUM 9.1 mg/dl (8.5-10.1); CREATININE 0.54 mg/dl (0.60-1.20); POTASSIUM 4.3 mmol/L (3.5-5.1)
[2017-03-09 14:47] LABS: BASO % 0.1 %; BASO ABS # 0.01 K/uL (0-0.2); EOS % 0.7 %; HEMATOCRIT 38.1 % (37-47); IG% 0.2 %; LYMPH % 8.1 %; LYMPH ABS # 0.77 K/uL (1.2-3.4); MEAN CORPUSCULAR HEMOGLOBIN 30.9 pg (25-34); MEAN PLATELET VOLUME 12.4 fL (7.4-10.4); MONO % 5.7 %; NEUT % 85.2 %; PLATELET COUNT 223 K/uL (130-400); RED BLOOD COUNT 4.01 M/uL (4.2-5.4); WHITE BLOOD COUNT 9.47 K/uL (4.8-10.8)
[2017-03-09 14:53] LABS: COMPLETE YES; MEAN CORPUSCULAR HGB CONC 32.5 g/dl (32-36)
[2017-03-09 15:00] LABS: PARTIAL THROMBOPLASTIN RATIO 1.2; PROTHROMBIN TIME (PATIENT) 10.3 SECONDS (9.0-12.0)
[2017-03-09] MEDS: HEPARIN 25,000 UNIT/500ML D5W 500 ML IV PRN (16:03)
--- NOTE | 2017-03-09 19:08 | Progress Note ---
Medicine Progress Note Date & Time of Visit: Mar 09, 2017 at 18:59. Subjective Patient reports feeling better today; only feels SOB or palpitations when up ambulating. Pain is better controlled today. Overnight was having some wheezing and was given a duoneb treatment which she states was helpful. No other events noted. Patient aware of changes on telemetry and the atrial fibrillation that was apparent. Objective Last 8 Hrs Date Time Temp Pulse Resp B/P (MAP) Pulse Ox O2 Delivery O2 Flow Rate FiO2 03/09/17 16:12 97 Nasal Cannula 2.0 03/09/17 15:49 36.4 110 19 137/75 (95) 97 Nasal Cannula 2.0 03/09/17 14:26 132 117/81 (93) 03/09/17 12:32 37.2 124 18 139/85 (103) 97 Nasal Cannula 2.0 03/09/17 12:30 Nasal Cannula 2.0 03/09/17 11:31 36.8 120 20 136/88 (104) 95 Nasal Cannula 2.0 Physical Exam: GENERAL: Patient is in no acute distress. HEENT: No acute trauma, normocephalic, mucous membranes moist, no nasal congestion, no scleral icterus. Conjunctivae clear NECK: No stridor, trachea is midline. LUNGS: Clear to auscultation bilaterally, no wheeze, no rhonchi, breath sounds equal. HEART: Without murmurs gallops or rubs, regular rate and rhythm. ABDOMEN: Soft, nontender, bowel sounds positive, no hepatosplenomegaly EXTREMITIES: No cyanosis or edema NEUROLOGIC: Oriented x 3, no acute motor or sensory deficits, no focal weakness. SKIN: No rash, no jaundice, no diaphoresis. Laboratory Results: Last 24 Hours Test 03/09/17 13:30 03/09/17 14:39 Sodium Level 138 mmol/L Potassium Level 4.3 mmol/L Chloride Level 105 mmol/L Carbon Dioxide Level 26 mmol/L Anion Gap 6.0 mmol/L Blood Urea Nitrogen 16 mg/dl Creatinine 0.54 mg/dl Est Creatinine Clear Calc Drug Dose 91.6 ml/min Estimated GFR () 103.3 Estimated GFR (Non- 89.1 BUN/Creatinine Ratio 28.7 Random Glucose 154 mg/dl Calcium Level 9.1 mg/dl Magnesium Level 2.0 mg/dl White Blood Count 9.47 K/uL Red Blood Count 4.01 M/uL Hemoglobin 12.4 g/dL Hematocrit 38.1 % Mean Corpuscular Volume 95.0 fL Mean Corpuscular Hemoglobin 30.9 pg Mean Corpuscular Hemoglobin Concent 32.5 g/dl Platelet Count 223 K/uL Mean Platelet Volume 12.4 fL Neutrophils (%) (Auto) 85.2 % Lymphocytes (%) (Auto) 8.1 % Monocytes (%) (Auto) 5.7 % Eosinophils (%) (Auto) 0.7 % Basophils (%) (Auto) 0.1 % Neutrophils # (Auto) 8.06 K/uL Lymphocytes # (Auto) 0.77 K/uL Monocytes # (Auto) 0.54 K/uL Eosinophils # (Auto) 0.07 K/uL Basophils # (Auto) 0.01 K/uL RDW Standard Deviation 48.9 fL RDW Coefficient of Variation 14.3 % Immature Granulocyte % (Auto) 0.2 % Immature Granulocyte # (Auto) 0.02 K/uL Prothrombin Time 10.3 SECONDS Prothromb Time International Ratio 1.0 Activated Partial Thromboplast Time 30.3 SECONDS Partial Thromboplastin Ratio 1.2 Assessment & Plan NEW ONSET ATRIAL FIBRILLATION: -was initially intermittent and since this morning has been sustained -CHAD2-VASC score of 7 (prior CVA, PVD, and CHF) -started on metoprolol this admission which was titrated up to 25mg BID; spoke with Cardiology who recommended increasing to TID -IV heparin started -Cardiology aware -TTE ordered ATYPICAL CHEST PAIN: -likely secondary to hypertensive urgency or musculoskeletal origin -does not seem associated with indigestion or eating -Cardiology consulted, appreciate recs, not likely from cardiac etiology -repeat a CXR given complaints of cough/wheezing per patient T10 VERTEBRAL COMPRESSION FRACTURE: -pain control -Pain management consulted for additional recommendations, appreciate recs -imaging also showed multiple old compression deformities of the vertebral bodies HX OF CVA and PVD -as per records -continued on ASA -bp control CHRONIC DIASTOLIC HEART FAILURE: -euvolemic to dry -monitor fluid status AMBULATORY DYSFUNCTION: -fall risk PMR: -continued on chronic steroids HYPERGLYCEMIA: -likely steroid induced -HbA1c 5.3% -monitor Current Inpatient Medications: Current Inpatient Medications Medications (Trade) Dose Ordered Sig/Jeovany Route Start Time Stop Time Status Last Admin Dose Admin Acetaminophen (Tylenol Tab) 650 mg Q4H PRN PO 03/07/17 03:30 04/06/17 03:29 03/08/17 17:49 650 MG Tramadol HCl (Ultram Tab) 25 mg Q6H PRN PO 03/07/17 03:30 04/06/17 03:29 03/08/17 23:40 25 MG Hydromorphone HCl (Dilaudid Inj) 0.5 mg Q4H PRN IV 03/07/17 03:30 03/21/17 03:29 03/07/17 20:06 0.5 MG Prochlorperazine Edisylate 5 mg/ Syringe 5 ml @ 5 mls/min Q6H PRN IV 03/07/17 03:30 04/06/17 03:29 Aspirin (Ecotrin Tab) 81 mg QAM PO 03/08/17 09:00 04/07/17 08:59 03/09/17 07:23 81 MG Folic Acid (Folvite Tab) 1 mg DAILY PO 03/07/17 09:00 04/06/17 08:59 03/09/17 07:23 1 MG Multivitamins (Multivitamin Tab) 1 tab DAILY PO 03/07/17 09:00 04/06/17 08:59 03/09/17 07:23 1 TAB Nitroglycerin (Nitrostat Tab) 0.4 mg UD PRN UT 03/07/17 03:30 04/06/17 03:29 Prednisone (PredniSONE TAB) 5 mg DAILY PO 03/07/17 09:00 04/06/17 08:59 03/09/17 07:23 5 MG Potassium Chloride (Klor-Con M10) 20 meq DAILY PO 03/07/17 09:00 04/06/17 08:59 03/09/17 07:23 20 MEQ Methotrexate (Methotrexate Tab) 20 mg Tu@0800 PO 03/08/17 08:00 04/07/17 07:59 03/08/17 08:45 20 MG Miscellaneous (Iv Fluids Completed) 1 ea PRN PRN N/A 03/07/17 05:00 03/07/18 04:59 Ioversol (Optiray 320) 125 ml UD PRN IV 03/07/17 07:30 03/11/17 07:29 Lidocaine (Lidoderm Patch 5%) 1 patch QAM TD 03/09/17 09:00 04/08/17 08:59 03/09/17 07:24 1 PATCH Miscellaneous (Remove Lidoderm Patch) 1 ea DAILY@21 N/A 03/08/17 21:00 04/07/17 20:59 Albuterol/ Ipratropium (Duoneb) 3 ml Q6H PRN INH 03/08/17 19:00 04/07/17 18:59 03/09/17 02:45 3 ML Metoprolol Tartrate (Lopressor Tab) 25 mg TID PO 03/09/17 21:00 04/06/17 20:59 Heparin Sodium/ Dextrose 500 ml @ 25 mls/hr Q20H PRN IV 03/09/17 15:00 04/08/17 14:59 03/09/17 16:03 25 MLS/HR
[2017-03-09] MEDS: METOPROLOL TARTRATE 25 MG TAB PO SCH (20:11)
[2017-03-09] MEDS ORDERED: METOPROLOL SUCC 25MG EXT REL TAB PO SCH (21:00)
[2017-03-09 23:21] LABS: PARTIAL THROMBOPLASTIN RATIO 1.8
[2017-03-10] VITALS (10 sets, daily range): BP systolic 119–135; BP diastolic 53–86; PULSE 66–116; TEMP 36.4–36.7; O2SAT 98–100
[2017-03-10] MEDS ORDERED: HEPARIN IV BOLUS 3,000 UNIT in SYRINGE 0 ML IV ONE (01:00)
[2017-03-10] MEDS: HEPARIN 25,000 UNIT/500ML D5W 500 ML IV PRN ×2 (01:06→10:32)
[2017-03-10] MEDS ORDERED: METOPROLOL TARTRATE 1 MG/ML VIAL ONE (06:28)
[2017-03-10] MEDS ORDERED: METOPROLOL TARTRATE 1 MG/ML VIAL IV ONE (06:30)
[2017-03-10 07:20] LABS: HEMATOCRIT 37.6 % (37-47); MEAN CORPUSCULAR HEMOGLOBIN 31.5 pg (25-34); MEAN CORPUSCULAR HGB CONC 33.5 g/dl (32-36); MEAN PLATELET VOLUME 12.4 fL (7.4-10.4); PLATELET COUNT 231 K/uL (130-400); WHITE BLOOD COUNT 7.09 K/uL (4.8-10.8)
[2017-03-10 07:36] LABS: PARTIAL THROMBOPLASTIN RATIO 2.4
[2017-03-10 07:56] LABS: CREATININE 0.57 mg/dl (0.60-1.20)
[2017-03-10] MEDS: LIDODERM (LIDOCAINE) PATCH 5% TD SCH (08:08)
--- NOTE | 2017-03-10 08:08 | Pain Management Progress Note ---
Pain Management Progress Note Date of Service Mar 10, 2017. Subjective Patient is an 81-year-old white female admitted with chest tightness and shortness of breath. Blood pressure was determined to be significantly elevated upon admission. Patient also has a history of polymyalgia rheumatica on chronic steroid therapy and methotrexate. Pain management consultation occurred due to the anterior chest wall pain which was felt to be likely a presentation of costochondral pain. Patient is at this time reporting minimal pain in the anterior chest wall describing more of a tightness sensation with some shortness of breath. She feels the Lidoderm patch has been beneficial at diminishing the discomfort. She has not utilized tramadol or IV hydromorphone over the past 24-36 hours. She is rating her current pain at a 0/10, ranging between a 0-3/10. Patient has no new neurologic or further constitutional complaints at this time. Plan of care discussed with Dr. Schmitz. Objective Vital Signs: Last Vital Signs Documentation Date Time Temp Pulse Resp B/P (MAP) Pulse Ox O2 Delivery O2 Flow Rate FiO2 03/10/17 06:33 155 128/64 03/10/17 04:47 36.4 16 99 Nasal Cannula 2.0 Physical Exam: Gen.: Patient sitting up quietly in exam room in no acute distress. Speech and thought process appropriate. Mood and affect appropriate. Cognition intact. Chest: Patient is minimally tender over the costosternal junction on the right the lower sternal border. No direct rib or intercostal tenderness appreciated. She is nontender with AP and lateral compression. Skin: No evidence of rash over the anterior chest wall at site of pain complaints. Neurologic: Cranial nerves grossly intact. Ambulatory function normal. Laboratory Laboratory Findings 03/10/17 07:10 Assessment 1. Anterior chest wall pain-suspect costochondritis 2. History of polymyalgia rheumatica on chronic steroids and methotrexate 3. T10 compression fracture without significant retropulsion 4. New onset atrial fibrillation Recommendations 1. Will recommend continuing with lidocaine patch 2. When necessary tramadol 3. Would defer costochondral joint injection at this time. The patient may follow-up with pain management the outpatient clinic with persisting complaints for consideration of costochondral joint injection and she verbalized understanding. 4. Will sign off on the patient at this time. Please contact us for further input during this admission as needed.
[2017-03-10] MEDS: MULTIVITAMIN TAB PO SCH (08:09)
[2017-03-10] MEDS: ASPIRIN 81 MG ECTAB PO SCH (08:09)
[2017-03-10] MEDS: METOPROLOL TARTRATE 25 MG TAB PO SCH (08:09)
[2017-03-10] MEDS: POTASSIUM CHLORIDE 10 MEQ TABCR PO SCH (08:09)
[2017-03-10] MEDS: TRAMADOL HCL 50 MG TAB PO PRN (08:14)
[2017-03-10] MEDS ORDERED: SOTALOL HCL 80 MG TAB PO ONE (09:31)
--- NOTE | 2017-03-10 14:29 | PROGRESS NOTE ---
DATE: 03/10/2017 The patient seen and examined. Chart, medications, telemetry reviewed. SUBJECTIVE: The patient yesterday lapsed into atrial fibrillation with elevated ventricular response rate, sensation of palpitations, no acute distal discomfort, rates are slightly better this morning after oral metoprolol increase. She had been appropriately anticoagulated, pain with motion and positional changes is improved. OBJECTIVE: VITAL SIGNS: Heart rate is 110. Blood pressure is 124/73. HEENT: Normocephalic and atraumatic. Nares without discharge. Throat was clear. NECK: Supple without thyromegaly or lymphadenopathy. There is no jugular venous distention at 30 degrees. LUNGS: Reveal mildly diminished breath sounds. CARDIOVASCULAR: Irregular, irregular. There is no S3 gallop. ABDOMEN: Soft, nontender. EXTREMITIES: Without cyanosis or clubbing. There is no peripheral edema. IMAGING STUDIES: EKG yesterday demonstrated atrial fibrillation with rapid ventricular response, rate 129, voltage criteria for left ventricular hypertrophy with atrial fibrillation, new onset. LABORATORY STUDIES: This morning, potassium is 4.3, renal functions normal. BUN is 16, creatinine 0.54. IMPRESSION: An 81-year-old female with issues as follows: 1. Admission for acute positional pain, possibly in association with T10 vertebral fracture. 2. New onset atrial fibrillation with high AKHIL score. The patient appropriately initiated on IV heparin. We will transition to warfarin. The patient will need probable gastrointestinal prophylaxis given chronic prednisone use, methotrexate, and now oral anticoagulation, may consider discontinuing aspirin, though when placed for history of prior transient ischemic attack, stroke. We will initiate antiarrhythmic therapy, hopefully, will return to sinus rhythm given recent onset atrial fibrillation, discontinuing metoprolol and adding sotalol 80 mg twice per day, first dose today. We will follow the patient in the hospital. EKG is ordered for a.m.
[2017-03-10] MEDS ORDERED: WARFARIN SOD 5 MG TAB PO ONE (16:00)
[2017-03-10] MEDS: SOTALOL HCL 80 MG TAB PO SCH (16:46)
--- NOTE | 2017-03-10 19:24 | Progress Note ---
Medicine Progress Note Date & Time of Visit: Mar 10, 2017 at 19:23. Subjective Patient reports feeling ok, denies any complaints of chest pain or tightness. Breathing is better overall. Has not been able to sleep well. No overnight events noted. No other complaints at this time. Tolerating activity. Objective Last 8 Hrs Date Time Temp Pulse Resp B/P (MAP) Pulse Ox O2 Delivery O2 Flow Rate FiO2 03/10/17 16:07 36.4 96 18 119/86 (97) 98 Nasal Cannula 2.0 03/10/17 16:00 98 Nasal Cannula 2.0 03/10/17 12:03 36.4 109 20 124/73 (90) 100 Nasal Cannula 2.0 03/10/17 12:01 99 Nasal Cannula 2.0 Physical Exam: GENERAL: Patient is in no acute distress. HEENT: No acute trauma, normocephalic, mucous membranes moist, no nasal congestion, no scleral icterus. Conjunctivae clear NECK: No stridor, trachea is midline. LUNGS: Clear to auscultation bilaterally, no wheeze, no rhonchi, breath sounds equal. HEART: Without murmurs gallops or rubs, irregularly irregular ABDOMEN: Soft, nontender, bowel sounds positive, no hepatosplenomegaly EXTREMITIES: No cyanosis or edema NEUROLOGIC: Oriented x 3, no acute motor or sensory deficits, no focal weakness. SKIN: No rash, no jaundice, no diaphoresis. Laboratory Results: Last 24 Hours Test 03/09/17 22:54 03/10/17 07:10 Activated Partial Thromboplast Time 46.5 SECONDS 63.3 SECONDS Partial Thromboplastin Ratio 1.8 2.4 White Blood Count 7.09 K/uL Red Blood Count 4.00 M/uL Hemoglobin 12.6 g/dL Hematocrit 37.6 % Mean Corpuscular Volume 94.0 fL Mean Corpuscular Hemoglobin 31.5 pg Mean Corpuscular Hemoglobin Concent 33.5 g/dl RDW Standard Deviation 47.7 fL RDW Coefficient of Variation 14.0 % Platelet Count 231 K/uL Mean Platelet Volume 12.4 fL Creatinine 0.57 mg/dl Est Creatinine Clear Calc Drug Dose 86.7 ml/min Estimated GFR () 101.5 Estimated GFR (Non- 87.6 Assessment & Plan NEW ONSET ATRIAL FIBRILLATION: -was initially intermittent and since yesterday has been sustained -CHAD2-VASC score of 7 (prior CVA, PVD, and CHF) -started on metoprolol this admission which was titrated up to 25mg BID; spoke with Cardiology who recommended increasing to TID; -on IV heparin, coumadin started today also -Cardiology stopped metoprolol today in favor of starting sotalol BID -TTE ordered ATYPICAL CHEST PAIN: improved -likely secondary to hypertensive urgency or musculoskeletal origin -does not seem associated with indigestion or eating -Cardiology consulted, appreciate recs, not likely from cardiac etiology -repeat a CXR given complaints of cough/wheezing per patient T10 VERTEBRAL COMPRESSION FRACTURE: -pain controlled -Pain management consulted for additional recommendations, appreciate recs -imaging also showed multiple old compression deformities of the vertebral bodies HX OF CVA and PVD -as per records -continued on ASA -bp control CHRONIC DIASTOLIC HEART FAILURE: -euvolemic to dry -monitor fluid status AMBULATORY DYSFUNCTION: -fall risk PMR: -continued on chronic steroids + methotrexate HYPERGLYCEMIA: -likely steroid induced -HbA1c 5.3% -monitor Current Inpatient Medications: Current Inpatient Medications Medications (Trade) Dose Ordered Sig/Jeovany Route Start Time Stop Time Status Last Admin Dose Admin Acetaminophen (Tylenol Tab) 650 mg Q4H PRN PO 03/07/17 03:30 04/06/17 03:29 03/08/17 17:49 650 MG Tramadol HCl (Ultram Tab) 25 mg Q6H PRN PO 03/07/17 03:30 04/06/17 03:29 03/10/17 08:14 25 MG Hydromorphone HCl (Dilaudid Inj) 0.5 mg Q4H PRN IV 03/07/17 03:30 03/21/17 03:29 03/07/17 20:06 0.5 MG Prochlorperazine Edisylate 5 mg/ Syringe 5 ml @ 5 mls/min Q6H PRN IV 03/07/17 03:30 04/06/17 03:29 Aspirin (Ecotrin Tab) 81 mg QAM PO 03/08/17 09:00 04/07/17 08:59 03/10/17 08:09 81 MG Folic Acid (Folvite Tab) 1 mg DAILY PO 03/07/17 09:00 04/06/17 08:59 03/10/17 08:09 1 MG Multivitamins (Multivitamin Tab) 1 tab DAILY PO 03/07/17 09:00 04/06/17 08:59 03/10/17 08:09 1 TAB Nitroglycerin (Nitrostat Tab) 0.4 mg UD PRN UT 03/07/17 03:30 04/06/17 03:29 Prednisone (PredniSONE TAB) 5 mg DAILY PO 03/07/17 09:00 04/06/17 08:59 03/10/17 08:09 5 MG Potassium Chloride (Klor-Con M10) 20 meq DAILY PO 03/07/17 09:00 04/06/17 08:59 03/10/17 08:09 20 MEQ Methotrexate (Methotrexate Tab) 20 mg Tu@0800 PO 03/08/17 08:00 04/07/17 07:59 03/08/17 08:45 20 MG Miscellaneous (Iv Fluids Completed) 1 ea PRN PRN N/A 03/07/17 05:00 03/07/18 04:59 Ioversol (Optiray 320) 125 ml UD PRN IV 03/07/17 07:30 03/11/17 07:29 Lidocaine (Lidoderm Patch 5%) 1 patch QAM TD 03/09/17 09:00 04/08/17 08:59 03/10/17 08:08 1 PATCH Miscellaneous (Remove Lidoderm Patch) 1 ea DAILY@21 N/A 03/08/17 21:00 04/07/17 20:59 03/10/17 19:21 1 EA Albuterol/ Ipratropium (Duoneb) 3 ml Q6H PRN INH 03/08/17 19:00 04/07/17 18:59 03/09/17 02:45 3 ML Heparin Sodium/ Dextrose 500 ml @ 28 mls/hr [id number] PRN IV 03/09/17 15:00 04/08/17 14:59 03/10/17 10:32 28 MLS/HR Sotalol HCl (Betapace Tab) 80 mg BID17 PO 03/10/17 17:00 04/09/17 16:59 03/10/17 16:46 80 MG
--- NOTE | 2017-03-10 20:35 | ECHOCARDIOGRAM REPORT ---
*NOTICE TO RECEIVING [employer] This information is strictly Confidential and protected under [place] law. [place] law prohibits you from making any further disclosure of this information unless further disclosure is expressly permitted by the written consent of the person to whom it pertains or is authorized by law. A general authorization for the release of medical or other information is not sufficient for this purpose. Hospital accepts no responsibility if the information is made available to any other person, INCLUDING THE PATIENT. Interpretation Summary * Name: CARMEN LEE Study Date: 03/10/2017 02:24 PM BP: 124/73 mmHg * Patient Location: [facility]\S\N277\S\1 HR: 108 * : 1935 (M/d/yyyy) Gender: Female Height: 63 in * Age: 81 yrs Ethnicity: [place] Weight: 211 lb * Ordering Physician: Kimberly Stearns * Referring Physician: Self, Referred * Performed By: Adry Randall RCS * * Reason For Study: A-FIB * BSA: 2.0 m2 * The study was technically adequate. * Compared to prior study, changes are noted. * -- Conclusions -- * The rhythm is atrial fibrillation. * Ejection Fraction = 50-55%. * There is moderate concentric left ventricular hypertrophy. * The left atrium is moderately dilated. * Aortic valve sclerosis moderate, without significant aortic valvular stenosis. * Mild aortic regurgitation. * There is mild to moderate mitral regurgitation. * There is mild to moderate tricuspid regurgitation. * Doppler findings do not suggest pulmonary hypertension. * Mildly dilated ascending aorta. Procedure Details * A complete two-dimensional transthoracic echocardiogram was performed (2D, M-mode, Doppler and color flow Doppler). Left Ventricle * The left ventricle is normal in size. * The rhythm is atrial fibrillation. * There is moderate concentric left ventricular hypertrophy. * Left ventricular systolic function is normal. * Ejection Fraction = 50-55%. * No regional wall motion abnormalities noted. Right Ventricle * The right ventricle is normal size. * The right ventricular systolic function is normal as assessed by tricuspid annular plane systolic excursion (TAPSE) (normal >1.5 cm). Atria * The left atrium is moderately dilated. * The right atrium is moderately dilated. * There is no evidence of atrial septal defect, but resolution does not allow assessment for a patent foramen ovale. Mitral Valve * There is mild mitral annular calcification. * The mitral valve leaflets appear thickened, but open well. * There is no mitral valve stenosis. * There is mild to moderate mitral regurgitation. Tricuspid Valve * The tricuspid valve is normal. * There is no tricuspid stenosis. * There is mild to moderate tricuspid regurgitation. * Doppler findings do not suggest pulmonary hypertension. Aortic Valve * The aortic valve is trileaflet. * Aortic valve sclerosis moderate, without significant aortic valvular stenosis. * Aortic stenosis is absent. * Mild aortic regurgitation. Pulmonic Valve * The pulmonary valve is not well seen, but the Doppler examination is normal without significant regurgitation or stenosis. Great Vessels * The aortic root is normal size. * Mildly dilated ascending aorta. Pericardium/Pleural * There is no pericardial effusion. Great Vessels * Normal inferior vena cava diameter and respiratory variation suggests normal central venous pressure. Left Ventricular Diastolic Function * Abnormal diastolic function. MMode 2D Measurements and Calculations IVSd 1.8 cm IVSs 2.0 cm LVIDd 3.2 cm LVIDs 2.5 cm LVPWd 1.5 cm LVPWs 1.8 cm IVS/LVPW 1.2 FS 21.0 % EDV(Teich) 41.3 ml ESV(Teich) 23.2 ml EF(Teich) 43.9 % EDV(cubed) 33.1 ml ESV(cubed) 16.3 ml EF(cubed) 50.7 % % IVS thick 14.2 % % LVPW thick 20.3 % LV mass(C)d 196.9 grams LV mass(C)dI 99.5 grams/m\S\2 LV mass(C)s 198.3 grams LV mass(C)sI 100.2 grams/m\S\2 SV(Teich) 18.1 ml SI(Teich) 9.2 ml/m\S\2 SV(cubed) 16.8 ml SI(cubed) 8.5 ml/m\S\2 Ao root diam 3.0 cm Ao root area 6.9 cm\S\2 ACS 1.4 cm LA dimension 4.2 cm LA/Ao 1.4 LVOT diam 2.0 cm LVOT area 3.1 cm\S\2 LVAd ap4 20.4 cm\S\2 LVLd ap4 6.2 cm EDV(MOD-sp4) 55.4 ml EDV(sp4-el) 57.5 ml LVAs ap4 13.2 cm\S\2 LVLs ap4 5.4 cm ESV(MOD-sp4) 26.5 ml ESV(sp4-el) 27.2 ml EF(MOD-sp4) 52.1 % EF(sp4-el) 52.6 % LVAd ap2 18.2 cm\S\2 LVLd ap2 5.6 cm EDV(MOD-sp2) 49.8 ml EDV(sp2-el) 50.3 ml LVAs ap2 12.9 cm\S\2 LVLs ap2 4.7 cm ESV(MOD-sp2) 29.0 ml ESV(sp2-el) 29.5 ml EF(MOD-sp2) 41.7 % EF(sp2-el) 41.3 % LVLd %diff -10.69 % EDV(MOD-bp) 55.6 ml LVLs %diff -14.45 % ESV(MOD-bp) 29.4 ml EF(MOD-bp) 47.0 % SV(MOD-sp4) 28.9 ml SI(MOD-sp4) 14.6 ml/m\S\2 SV(MOD-sp2) 20.8 ml SI(MOD-sp2) 10.5 ml/m\S\2 SV(MOD-bp) 26.1 ml SI(MOD-bp) 13.2 ml/m\S\2 SV(sp4-el) 30.2 ml SI(sp4-el) 15.3 ml/m\S\2 SV(sp2-el) 20.8 ml SI(sp2-el) 10.5 ml/m\S\2 Doppler Measurements and Calculations MV E max magdiel 133.2 cm/sec MV P1/2t max magdiel 135.5 cm/sec MV P1/2t 80.0 msec MVA(P1/2t) 2.8 cm\S\2 MV dec slope 496.0 cm/sec\S\2 Ao V2 max 172.1 cm/sec Ao max PG 11.8 mmHg Ao max PG (full) 7.6 mmHg BRIANNE(V,A) 1.9 cm\S\2 BRIANNE(V,D) 1.9 cm\S\2 AI max magdiel 394.2 cm/sec AI max PG 62.2 mmHg AI dec slope 225.8 cm/sec\S\2 AI P1/2t 511.2 msec LV V1 max PG 4.2 mmHg LV V1 max 103.0 cm/sec MR max magdiel 453.9 cm/sec MR max PG 82.8 mmHg PA V2 max 82.8 cm/sec PA max PG 2.7 mmHg PI max magdiel 181.1 cm/sec PI max PG 13.1 mmHg PI dec slope 197.5 cm/sec\S\2 PI P1/2t 268.5 msec TR max magdiel 220.9 cm/sec
[2017-03-11] VITALS (12 sets, daily range): BP systolic 148–187; BP diastolic 74–123; PULSE 68–90; TEMP 36.5–36.8; O2SAT 92–100
[2017-03-11] MEDS: HEPARIN 25,000 UNIT/500ML D5W 500 ML IV PRN ×2 (04:38→22:39)
[2017-03-11 07:09] LABS: BASO % 0.6 %; BASO ABS # 0.04 K/uL (0-0.2); COMPLETE YES; EOS % 3.5 %; HEMATOCRIT 35.8 % (37-47); IG% 0.3 %; LYMPH % 22.7 %; LYMPH ABS # 1.44 K/uL (1.2-3.4); MEAN CELL VOLUME 93.7 fL (80-100); MEAN CORPUSCULAR HEMOGLOBIN 31.2 pg (25-34); MEAN CORPUSCULAR HGB CONC 33.2 g/dl (32-36); MONO % 8.4 %; NEUT % 64.5 %; PLATELET COUNT 238 K/uL (130-400); RED BLOOD COUNT 3.82 M/uL (4.2-5.4); WHITE BLOOD COUNT 6.34 K/uL (4.8-10.8)
[2017-03-11 07:23] LABS: INR 1.1 (0.9-1.1); PARTIAL THROMBOPLASTIN RATIO 2.3; PROTHROMBIN TIME (PATIENT) 11.3 SECONDS (9.0-12.0)
[2017-03-11] MEDS: ASPIRIN 81 MG ECTAB PO SCH (08:11)
[2017-03-11] MEDS: SOTALOL HCL 80 MG TAB PO SCH ×2 (08:11→17:34)
[2017-03-11] MEDS: LIDODERM (LIDOCAINE) PATCH 5% TD SCH (08:12)
[2017-03-11] MEDS: POTASSIUM CHLORIDE 10 MEQ TABCR PO SCH (08:12)
[2017-03-11] MEDS: MULTIVITAMIN TAB PO SCH (08:12)
[2017-03-11] MEDS ORDERED: PANTOprazole SOD 40 MG TAB PO SCH (09:00)
--- NOTE | 2017-03-11 09:29 | CARDIOLOGY PROGRESS NOTE ---
DATE: 03/11/2017 DATE: 03/11/2017 The patient seen and examined. Chart, laboratory studies, telemetry reviewed. SUBJECTIVE: The patient feels improved this morning. Notes no specific complaints. Pain is better controlled. Notes no breathing difficulties. Notes no chest pains. The patient spontaneously converted to sinus yesterday after initiation of antiarrhythmic therapy with sotalol. She notes no bleeding difficulties. Notes no melena, hematochezia, dysuria or hematuria. Does note some mild pedal edema but diuretics have been held since admission. PHYSICAL EXAMINATION: VITAL SIGNS: Heart rate 68, blood pressure is 148/86. HEAD, EYES, EARS, NOSE, AND THROAT: Normocephalic, atraumatic. NECK: Thin. There is no jugular venous distention. LUNGS: Reveal mildly diminished breath sounds, but are clear. Chest tenderness is improved. ABDOMEN: Soft, nontender. EXTREMITIES: Without cyanosis or clubbing. There is 1-2+ lower extremity edema. LABORATORY DATA: Today, white cell count 6.3, hemoglobin is 11.9. Electrolytes are pending. INR is 1.1. IMPRESSION: An 81-year-old female admitted with chest pain and abdominal pain, back pain consistent with referred musculoskeletal issues from likely vertebral fracture clinically improved. The patient lapsing into atrial fibrillation during this admission. The patient is once again back in sinus rhythm. We will review EKG for this morning. Echocardiogram done yesterday reveals no significant valvular disease with mild aortic, mitral and tricuspid insufficiency. RECOMMENDATIONS: Resume diuretic. Patient previously on furosemide 20 mg 3 days per week. Dose will be administered this morning with mild volume overload on assessment. Will continue sotalol 80 mg twice per day. Continue initiation of anticoagulation with warfarin and maintain on telemetry for additional 24 hours given initiation of antiarrhythmic therapy.
[2017-03-11] MEDS ORDERED: FUROSEMIDE 40 MG TAB PO ONE (09:30)
[2017-03-11 10:04] LABS: BUN/CREATININE RATIO 27.2 (10-20); CALCIUM 8.9 mg/dl (8.5-10.1); CREATININE 0.56 mg/dl (0.60-1.20); POTASSIUM 4.4 mmol/L (3.5-5.1)
[2017-03-11] MEDS: FAMOTIDINE 20 MG TAB PO SCH ×2 (10:32→20:49)
[2017-03-11] MEDS ORDERED: LISINOPRIL 2.5 MG TAB PO ONE (17:00)
[2017-03-11] MEDS ORDERED: WARFARIN SOD 5 MG TAB PO ONE (17:15)
--- NOTE | 2017-03-11 19:37 | Progress Note ---
Medicine Progress Note Date & Time of Visit: Mar 11, 2017 at 19:37. Subjective Patient doing well, denies any symptoms of SOB or chest pain. No overnight events noted. Tolerating PO. Has no new complaints. Has been ambulating without difficulty. Son at the bedside and was updated. Objective Last 8 Hrs Date Time Temp Pulse Resp B/P (MAP) Pulse Ox O2 Delivery O2 Flow Rate FiO2 03/11/17 19:26 36.8 74 18 156/74 (101) 96 Room Air 03/11/17 16:00 97 Room Air 03/11/17 15:56 36.8 88 18 186/123 (144) 95 03/11/17 12:06 100 Nasal Cannula Physical Exam: GENERAL: Patient is in no acute distress. HEENT: No acute trauma, normocephalic, mucous membranes moist, no nasal congestion, no scleral icterus. Conjunctivae clear NECK: No stridor, trachea is midline. LUNGS: Clear to auscultation bilaterally, no wheeze, no rhonchi, breath sounds equal. HEART: Without murmurs gallops or rubs, RR, S1 and S2 auscultated ABDOMEN: Soft, nontender, bowel sounds positive, no hepatosplenomegaly EXTREMITIES: No cyanosis; B/L LE edema NEUROLOGIC: Oriented x 3, no acute motor or sensory deficits, no focal weakness. SKIN: No rash, no jaundice, no diaphoresis. Laboratory Results: Last 24 Hours Test 03/11/17 06:57 White Blood Count 6.34 K/uL Red Blood Count 3.82 M/uL Hemoglobin 11.9 g/dL Hematocrit 35.8 % Mean Corpuscular Volume 93.7 fL Mean Corpuscular Hemoglobin 31.2 pg Mean Corpuscular Hemoglobin Concent 33.2 g/dl Platelet Count 238 K/uL Mean Platelet Volume 12.0 fL Neutrophils (%) (Auto) 64.5 % Lymphocytes (%) (Auto) 22.7 % Monocytes (%) (Auto) 8.4 % Eosinophils (%) (Auto) 3.5 % Basophils (%) (Auto) 0.6 % Neutrophils # (Auto) 4.09 K/uL Lymphocytes # (Auto) 1.44 K/uL Monocytes # (Auto) 0.53 K/uL Eosinophils # (Auto) 0.22 K/uL Basophils # (Auto) 0.04 K/uL RDW Standard Deviation 47.8 fL RDW Coefficient of Variation 14.0 % Immature Granulocyte % (Auto) 0.3 % Immature Granulocyte # (Auto) 0.02 K/uL Prothrombin Time 11.3 SECONDS Prothromb Time International Ratio 1.1 Activated Partial Thromboplast Time 60.9 SECONDS Partial Thromboplastin Ratio 2.3 Sodium Level 138 mmol/L Potassium Level 4.4 mmol/L Chloride Level 104 mmol/L Carbon Dioxide Level 26 mmol/L Anion Gap 7.0 mmol/L Blood Urea Nitrogen 15 mg/dl Creatinine 0.56 mg/dl Est Creatinine Clear Calc Drug Dose 88.5 ml/min Estimated GFR () 102.1 Estimated GFR (Non- 88.1 BUN/Creatinine Ratio 27.2 Random Glucose 104 mg/dl Calcium Level 8.9 mg/dl Assessment & Plan NEW ONSET ATRIAL FIBRILLATION: -was initially intermittent and since yesterday has been sustained -CHAD2-VASC score of 7 (prior CVA, PVD, and CHF) -started on metoprolol this admission which was titrated up, this was then stopped and sotalol was started by Cardio -on IV heparin + coumadin (INR 1.1) -Cardiology stopped metoprolol today in favor of starting sotalol BID -TTE Report: * -- Conclusions -- * The rhythm is atrial fibrillation. * Ejection Fraction = 50-55%. * There is moderate concentric left ventricular hypertrophy. * The left atrium is moderately dilated. * Aortic valve sclerosis moderate, without significant aortic valvular stenosis. * Mild aortic regurgitation. * There is mild to moderate mitral regurgitation. * There is mild to moderate tricuspid regurgitation. * Doppler findings do not suggest pulmonary hypertension. * Mildly dilated ascending aorta. ATYPICAL CHEST PAIN: improved -likely secondary to hypertensive urgency or musculoskeletal origin -does not seem associated with indigestion or eating -Cardiology consulted, appreciate recs, not likely from cardiac etiology but more likely musculoskeletal T10 VERTEBRAL COMPRESSION FRACTURE: -pain controlled -Pain management consulted for additional recommendations, appreciate recs -imaging also showed multiple old compression deformities of the vertebral bodies HX OF CVA and PVD -as per records -continued on ASA -bp control CHRONIC DIASTOLIC HEART FAILURE: -euvolemic to dry -monitor fluid status AMBULATORY DYSFUNCTION: -fall risk PMR: -continued on chronic steroids + methotrexate HYPERGLYCEMIA: -likely steroid induced -HbA1c 5.3% -monitor Current Inpatient Medications: Current Inpatient Medications Medications (Trade) Dose Ordered Sig/Jeovany Route Start Time Stop Time Status Last Admin Dose Admin Acetaminophen (Tylenol Tab) 650 mg Q4H PRN PO 03/07/17 03:30 04/06/17 03:29 03/08/17 17:49 650 MG Tramadol HCl (Ultram Tab) 25 mg Q6H PRN PO 03/07/17 03:30 04/06/17 03:29 03/10/17 08:14 25 MG Hydromorphone HCl (Dilaudid Inj) 0.5 mg Q4H PRN IV 03/07/17 03:30 03/21/17 03:29 03/07/17 20:06 0.5 MG Prochlorperazine Edisylate 5 mg/ Syringe 5 ml @ 5 mls/min Q6H PRN IV 03/07/17 03:30 04/06/17 03:29 Aspirin (Ecotrin Tab) 81 mg QAM PO 03/08/17 09:00 04/07/17 08:59 03/11/17 08:11 81 MG Folic Acid (Folvite Tab) 1 mg DAILY PO 03/07/17 09:00 04/06/17 08:59 03/11/17 08:12 1 MG Multivitamins (Multivitamin Tab) 1 tab DAILY PO 03/07/17 09:00 04/06/17 08:59 03/11/17 08:12 1 TAB Nitroglycerin (Nitrostat Tab) 0.4 mg UD PRN UT 03/07/17 03:30 04/06/17 03:29 Prednisone (PredniSONE TAB) 5 mg DAILY PO 03/07/17 09:00 04/06/17 08:59 03/11/17 08:12 5 MG Potassium Chloride (Klor-Con M10) 20 meq DAILY PO 03/07/17 09:00 04/06/17 08:59 03/11/17 08:12 20 MEQ Methotrexate (Methotrexate Tab) 20 mg Tu@0800 PO 03/08/17 08:00 04/07/17 07:59 03/08/17 08:45 20 MG Miscellaneous (Iv Fluids Completed) 1 ea PRN PRN N/A 03/07/17 05:00 03/07/18 04:59 Lidocaine (Lidoderm Patch 5%) 1 patch QAM TD 03/09/17 09:00 04/08/17 08:59 03/11/17 08:12 1 PATCH Miscellaneous (Remove Lidoderm Patch) 1 ea DAILY@21 N/A 03/08/17 21:00 04/07/17 20:59 03/11/17 19:10 1 EA Albuterol/ Ipratropium (Duoneb) 3 ml Q6H PRN INH 03/08/17 19:00 04/07/17 18:59 03/09/17 02:45 3 ML Heparin Sodium/ Dextrose 500 ml @ 28 mls/hr [id number] PRN IV 03/09/17 15:00 04/08/17 14:59 03/11/17 04:38 28 MLS/HR Sotalol HCl (Betapace Tab) 80 mg BID17 PO 03/10/17 17:00 04/09/17 16:59 03/11/17 17:34 80 MG Famotidine (Pepcid Tab) 20 mg BID PO 03/11/17 09:30 04/10/17 09:29 03/11/17 10:32 20 MG Lisinopril (Zestril Tab) 2.5 mg QAM PO 03/12/17 09:00 04/11/17 08:59
[2017-03-12] VITALS (10 sets, daily range): BP systolic 138–161; BP diastolic 74–84; PULSE 70–96; TEMP 36.4–36.8; O2SAT 94–96
[2017-03-12 07:20] LABS: HEMATOCRIT 35.6 % (37-47); MEAN CELL VOLUME 93.2 fL (80-100); MEAN CORPUSCULAR HEMOGLOBIN 30.6 pg (25-34); MEAN CORPUSCULAR HGB CONC 32.9 g/dl (32-36); MEAN PLATELET VOLUME 12.1 fL (7.4-10.4); PLATELET COUNT 271 K/uL (130-400); RED BLOOD COUNT 3.82 M/uL (4.2-5.4); WHITE BLOOD COUNT 6.23 K/uL (4.8-10.8)
[2017-03-12 07:40] LABS: INR 1.2 (0.9-1.1); PARTIAL THROMBOPLASTIN RATIO 2.7; PROTHROMBIN TIME (PATIENT) 12.8 SECONDS (9.0-12.0)
[2017-03-12] MEDS: POTASSIUM CHLORIDE 10 MEQ TABCR PO SCH (08:27)
[2017-03-12] MEDS: MULTIVITAMIN TAB PO SCH (08:27)
[2017-03-12] MEDS: SOTALOL HCL 80 MG TAB PO SCH ×2 (08:28→16:35)
[2017-03-12] MEDS: LIDODERM (LIDOCAINE) PATCH 5% TD SCH (08:28)
[2017-03-12] MEDS: FAMOTIDINE 20 MG TAB PO SCH ×2 (08:28→21:03)
[2017-03-12] MEDS: LISINOPRIL 2.5 MG TAB PO SCH (08:28)
[2017-03-12] MEDS: ASPIRIN 81 MG ECTAB PO SCH (09:04)
--- NOTE | 2017-03-12 12:02 | CARDIOLOGY PROGRESS NOTE ---
DATE: 03/12/2017 DATE: 03/12/2017 The patient seen and examined. Chart, medications, telemetry reviewed. SUBJECTIVE: The patient notes did not sleep as well last night, but otherwise notes no complaints. Notes no chest pains, dizziness, lightheadedness, syncope or near syncope. Notes no worsening orthopnea. Notes no indigestion, heartburn. OBJECTIVE: VITAL SIGNS: Heart rate is 80. Telemetry reveals sinus rhythm. No further recurrence of atrial fibrillation. NECK: Thin. There is no jugular venous distention. LUNGS: Reveal clear air fine. CARDIOVASCULAR EXAMINATION: Regular. There is no S3 gallop. ABDOMEN: Soft. EXTREMITIES: Without cyanosis or clubbing. There is no peripheral edema. There are intact distal pulses. DATA: EKG this morning reveals sinus rhythm, occasional atrial ectopic beats, rate 91. QT corrected interval 499. LABORATORY DATA: White cell count was 6.2, hemoglobin 11.7, INR was 1.2. Sodium is 138, potassium is 4.4, chloride is 104, bicarb is 26, BUN is 15, creatinine 0.56. IMPRESSION: An 81-year-old female admitted with atypical chest discomfort now resolving, transient atrial fibrillation during hospitalization with high CHADS-VAS score. Given paroxysmal atrial fibrillation observed she was begun on sotalol now with good rhythm control. Would continue current dosing of sotalol 80 mg twice per day, lisinopril has been added at 2.5 mg per day for hypertension control. The patient has been resumed on usual dosing of furosemide to receive 20 mg Tuesday, Tuesday, Tuesday. Plan on observing on telemetry an additional 24 hours given mild prolongation of QT interval. If clinical stability observed in a.m., likely will be able to be discharged.
[2017-03-12 14:31] LABS: PARTIAL THROMBOPLASTIN RATIO 2.8
[2017-03-12] MEDS: HEPARIN 25,000 UNIT/500ML D5W 500 ML IV PRN ×2 (17:12→23:15)
--- NOTE | 2017-03-12 19:21 | Progress Note ---
Medicine Progress Note Date & Time of Visit: Mar 12, 2017 at 19:20. Subjective Patient doing ok, states she has been having a great deal of difficulty sleeping since being in the hospital. No overnight events noted otherwise. No additional complaints of chest pain. Back pain is controlled. No other complaints at this time. Objective Last 8 Hrs Date Time Temp Pulse Resp B/P (MAP) Pulse Ox O2 Delivery O2 Flow Rate FiO2 03/12/17 18:00 36.5 70 18 150/84 (106) 96 Room Air 03/12/17 13:31 36.8 92 20 138/80 (99) 94 Room Air 03/12/17 12:11 36.6 91 18 161/84 (109) 95 Room Air 03/12/17 12:00 95 Room Air Physical Exam: GENERAL: Patient is in no acute distress. HEENT: No acute trauma, normocephalic, mucous membranes moist, no nasal congestion, no scleral icterus. Conjunctivae clear NECK: No stridor, trachea is midline. LUNGS: Clear to auscultation bilaterally, no wheeze, no rhonchi, breath sounds equal. HEART: Without murmurs gallops or rubs, RR, S1 and S2 auscultated ABDOMEN: Soft, nontender, bowel sounds positive, no hepatosplenomegaly EXTREMITIES: No cyanosis; B/L LE edema NEUROLOGIC: Oriented x 3, no acute motor or sensory deficits, no focal weakness. SKIN: No rash, no jaundice, no diaphoresis. Laboratory Results: Last 24 Hours Test 03/12/17 06:52 03/12/17 13:46 White Blood Count 6.23 K/uL Red Blood Count 3.82 M/uL Hemoglobin 11.7 g/dL Hematocrit 35.6 % Mean Corpuscular Volume 93.2 fL Mean Corpuscular Hemoglobin 30.6 pg Mean Corpuscular Hemoglobin Concent 32.9 g/dl RDW Standard Deviation 47.7 fL RDW Coefficient of Variation 14.0 % Platelet Count 271 K/uL Mean Platelet Volume 12.1 fL Prothrombin Time 12.8 SECONDS Prothromb Time International Ratio 1.2 Activated Partial Thromboplast Time 70.7 SECONDS 73.8 SECONDS Partial Thromboplastin Ratio 2.7 2.8 Assessment & Plan NEW ONSET ATRIAL FIBRILLATION: -was initially intermittent and since yesterday has been sustained -CHAD2-VASC score of 7 (prior CVA, PVD, and CHF) -started on metoprolol this admission which was titrated up, this was then stopped and sotalol was started by Cardio -on IV heparin + coumadin; INR 1.2 today -Cardiology stopped metoprolol; started on sotalol BID x 3 days now, EKG from this AM showed QTc lengthened and recommended additional 24 hours monitoring on tele -TTE Report: * -- Conclusions -- * The rhythm is atrial fibrillation. * Ejection Fraction = 50-55%. * There is moderate concentric left ventricular hypertrophy. * The left atrium is moderately dilated. * Aortic valve sclerosis moderate, without significant aortic valvular stenosis. * Mild aortic regurgitation. * There is mild to moderate mitral regurgitation. * There is mild to moderate tricuspid regurgitation. * Doppler findings do not suggest pulmonary hypertension. * Mildly dilated ascending aorta. ATYPICAL CHEST PAIN: improved -likely secondary to hypertensive urgency or musculoskeletal origin -does not seem associated with indigestion or eating -Cardiology consulted, appreciate recs, not likely from cardiac etiology but more likely musculoskeletal T10 VERTEBRAL COMPRESSION FRACTURE: -pain controlled -Pain management consulted for additional recommendations, appreciate recs -imaging also showed multiple old compression deformities of the vertebral bodies HX OF CVA and PVD -as per records -continued on ASA -bp control CHRONIC DIASTOLIC HEART FAILURE: -euvolemic to dry -monitor fluid status AMBULATORY DYSFUNCTION: -fall risk PMR: -continued on chronic steroids + methotrexate HYPERGLYCEMIA: -likely steroid induced -HbA1c 5.3% -monitor Current Inpatient Medications: Current Inpatient Medications Medications (Trade) Dose Ordered Sig/Jeovany Route Start Time Stop Time Status Last Admin Dose Admin Acetaminophen (Tylenol Tab) 650 mg Q4H PRN PO 03/07/17 03:30 04/06/17 03:29 03/08/17 17:49 650 MG Tramadol HCl (Ultram Tab) 25 mg Q6H PRN PO 03/07/17 03:30 04/06/17 03:29 03/10/17 08:14 25 MG Hydromorphone HCl (Dilaudid Inj) 0.5 mg Q4H PRN IV 03/07/17 03:30 03/21/17 03:29 03/07/17 20:06 0.5 MG Prochlorperazine Edisylate 5 mg/ Syringe 5 ml @ 5 mls/min Q6H PRN IV 03/07/17 03:30 04/06/17 03:29 Aspirin (Ecotrin Tab) 81 mg QAM PO 03/08/17 09:00 04/07/17 08:59 03/12/17 09:04 81 MG Folic Acid (Folvite Tab) 1 mg DAILY PO 03/07/17 09:00 04/06/17 08:59 03/12/17 08:27 1 MG Multivitamins (Multivitamin Tab) 1 tab DAILY PO 03/07/17 09:00 04/06/17 08:59 03/12/17 08:27 1 TAB Nitroglycerin (Nitrostat Tab) 0.4 mg UD PRN UT 03/07/17 03:30 04/06/17 03:29 Prednisone (PredniSONE TAB) 5 mg DAILY PO 03/07/17 09:00 04/06/17 08:59 03/12/17 08:27 5 MG Potassium Chloride (Klor-Con M10) 20 meq DAILY PO 03/07/17 09:00 04/06/17 08:59 03/12/17 08:27 20 MEQ Methotrexate (Methotrexate Tab) 20 mg Tu@0800 PO 03/08/17 08:00 04/07/17 07:59 03/08/17 08:45 20 MG Miscellaneous (Iv Fluids Completed) 1 ea PRN PRN N/A 03/07/17 05:00 03/07/18 04:59 Lidocaine (Lidoderm Patch 5%) 1 patch QAM TD 03/09/17 09:00 04/08/17 08:59 03/12/17 08:28 1 PATCH Miscellaneous (Remove Lidoderm Patch) 1 ea DAILY@21 N/A 03/08/17 21:00 04/07/17 20:59 03/11/17 19:10 1 EA Albuterol/ Ipratropium (Duoneb) 3 ml Q6H PRN INH 03/08/17 19:00 04/07/17 18:59 03/09/17 02:45 3 ML Heparin Sodium/ Dextrose 500 ml @ 26 mls/hr [id number] PRN IV 03/09/17 15:00 04/08/17 14:59 03/12/17 17:12 26 MLS/HR Sotalol HCl (Betapace Tab) 80 mg BID17 PO 03/10/17 17:00 04/09/17 16:59 03/12/17 16:35 80 MG Famotidine (Pepcid Tab) 20 mg BID PO 03/11/17 09:30 04/10/17 09:29 03/12/17 08:28 20 MG Lisinopril (Zestril Tab) 2.5 mg QAM PO 03/12/17 09:00 04/11/17 08:59 03/12/17 08:28 2.5 MG
[2017-03-12 21:52] LABS: PARTIAL THROMBOPLASTIN RATIO 2.7
[2017-03-13] VITALS (7 sets, daily range): BP systolic 149–175; BP diastolic 70–88; PULSE 72–93; TEMP 36.3–36.7; O2SAT 94–97
[2017-03-13 05:49] LABS: BUN/CREATININE RATIO 19.9 (10-20); CREATININE 0.64 mg/dl (0.60-1.20); POTASSIUM 3.9 mmol/L (3.5-5.1)
[2017-03-13 05:50] LABS: INR 1.4 (0.9-1.1); PARTIAL THROMBOPLASTIN RATIO 2.4; PROTHROMBIN TIME (PATIENT) 14.7 SECONDS (9.0-12.0)
[2017-03-13] MEDS: POTASSIUM CHLORIDE 10 MEQ TABCR PO SCH (07:57)
[2017-03-13] MEDS: SOTALOL HCL 80 MG TAB PO SCH (07:57)
[2017-03-13] MEDS: MULTIVITAMIN TAB PO SCH (07:57)
[2017-03-13] MEDS: ASPIRIN 81 MG ECTAB PO SCH (07:57)
[2017-03-13] MEDS: FAMOTIDINE 20 MG TAB PO SCH (07:58)
[2017-03-13] MEDS: LIDODERM (LIDOCAINE) PATCH 5% TD SCH (07:58)
[2017-03-13] MEDS: LISINOPRIL 2.5 MG TAB PO SCH (07:58)
[2017-03-13] MEDS ORDERED: WARFARIN SOD 5 MG TAB PO ONE (10:15)
[2017-03-13] MEDS ORDERED: SOTALOL HCL 80 MG TAB PO ONE (10:15)
[2017-03-13] MEDS ORDERED: LSN25 PO (10:20)
[2017-03-13] MEDS ORDERED: FAMO1TAB47 PO (10:20)
[2017-03-13] MEDS ORDERED: LDDP5 TD (10:20)
[2017-03-13] MEDS ORDERED: BTP80 PO (10:20)
[2017-03-13] MEDS ORDERED: POTA10CA28 PO (10:20)
--- NOTE | 2017-03-13 10:23 | Discharge Instructions ---
Discharge Instructions Date of Service Mar 13, 2017. Admission Reason for Admission: Chest Pain Discharge Discharge Diagnosis / Problem: Chest pain, atrial fibrillation Discharge Goals Goal(s): Therapeutic intervention Activity Recommendations Activity Limitations: per Instructions/Follow-up section Lifting Limitations: gradually increase as tolerated Exercise/Sports Limitations: gradually increase as tolerated . Instructions / Follow-Up Instructions / Follow-Up Please follow up with [facility] (pharmacist), please expect to receive a call from them to schedule an appointment Please see Dr. Montana on March 16 at 11AM for hospital follow up Please see Dr. Austin as scheduled. Current Hospital Diet Patient's current hospital diet: AHA Diet (Heart Healthy) Discharge Diet Recommended Diet: AHA Diet (Heart Healthy) Procedures Procedures Performed: TTE Pending Studies Studies pending at discharge: no Laboratory Results Hemoglobin A1c Test 03/07/17 01:55 Range/Units Estimated Average Glucose 105 mg/dl Hemoglobin A1c 5.3 4.5-5.6 % Medical Emergencies . Who to Call and When: Medical Emergencies: If at any time you feel your situation is an emergency, please call 911 immediately. . Non-Emergent Contact Non-Emergency issues call your: Primary Care Provider, Tag Marker . . "Provider Documentation" section prepared by Kmiberly Stearns. . VTE Core Measure Inpt VTE Proph given/why not?: Warfarin (Coumadin), Other Anticoagulation
--- NOTE | 2017-03-13 12:01 | Discharge Summary ---
Discharge Summary Date of Service Mar 13, 2017. Discharge Summary Admission Date: Mar 10, 2017 at 13:51 Discharge Date: Mar 13, 2017 Hospital Course NEW ONSET ATRIAL FIBRILLATION: -was initially intermittent and since yesterday has been sustained -CHAD2-VASC score of 7 (prior CVA, PVD, and CHF) -started on metoprolol this admission which was titrated up, this was then stopped and sotalol was started by Cardio -on IV heparin + coumadin; INR 1.2 today -Cardiology stopped metoprolol; started on sotalol BID x 3 days now, EKG from this AM showed QTc lengthened and recommended additional 24 hours monitoring on tele -TTE Report: * -- Conclusions -- * The rhythm is atrial fibrillation. * Ejection Fraction = 50-55%. * There is moderate concentric left ventricular hypertrophy. * The left atrium is moderately dilated. * Aortic valve sclerosis moderate, without significant aortic valvular stenosis. * Mild aortic regurgitation. * There is mild to moderate mitral regurgitation. * There is mild to moderate tricuspid regurgitation. * Doppler findings do not suggest pulmonary hypertension. * Mildly dilated ascending aorta. ATYPICAL CHEST PAIN: improved -likely secondary to hypertensive urgency or musculoskeletal origin -does not seem associated with indigestion or eating -Cardiology consulted, appreciate recs, not likely from cardiac etiology but more likely musculoskeletal T10 VERTEBRAL COMPRESSION FRACTURE: -pain controlled -Pain management consulted for additional recommendations, appreciate recs -imaging also showed multiple old compression deformities of the vertebral bodies HX OF CVA and PVD -as per records -continued on ASA -bp control CHRONIC DIASTOLIC HEART FAILURE: -euvolemic to dry -monitor fluid status AMBULATORY DYSFUNCTION: -fall risk PMR: -continued on chronic steroids + methotrexate HYPERGLYCEMIA: -likely steroid induced -HbA1c 5.3% -monitor Total time spent on discharge = This includes examination of the patient, discharge planning, medication reconciliation, and communication with other providers.
--- NOTE | 2017-03-13 14:04 | PROGRESS NOTE ---
DATE: 03/13/2017 CARDIOLOGY CONSULTATION FOLLOWUP NOTE The patient seen and examined. Chart, medications, telemetry reviewed. SUBJECTIVE: The patient notes no complaints this morning, legs are mildly edematous but otherwise has been feeling well. Notes no tachypalpitations. Notes no dizziness or lightheadedness. Notes no chest pain or discomfort. OBJECTIVE: VITAL SIGNS: Heart rate is 82, blood pressure is 149/81. NECK: Thin. There is no jugular venous distention. LUNGS: Clear. CARDIOVASCULAR: Regular. There is no S3 gallop. ABDOMEN: Soft, nontender. EXTREMITIES: Without cyanosis or clubbing. There is 1-2+ lower extremity edema. LABORATORY STUDIES: Sodium is 137, potassium 3.9, chloride 103, bicarbonate 30, BUN 13, and creatinine 0.64. IMPRESSION: An 81-year-old female admitted with issues of: 1. Noncardiac chest pain secondary to compression fracture. 2. Transient atrial fibrillation with conversion and subsequent control with oral sotalol. 3. Hypertension. RECOMMENDATIONS: Continue all medications as prescribed. We will arrange for followup post-hospital discharge. Encouraged patient the use diuretic prednisone with furosemide Tuesday, Tuesday, Tuesday and p.r.n. for at least the next 3 days to aid in lower extremity edema. The patient is agreeable to plan.
== END 2017-03-13 12:33 | disposition home health service (06) | DRG 543 ==
LOC: C.EDB 01:38 → C.2T 03:07 → ENRESERV 03:22 → C.MED 23:55 → OBSVTOIN 03-10 13:51
PROVIDERS: ADMIT Internal Medicine; ATTEND Internal Medicine
DX: M48.54XA Collapsed vertebra, not elsewhere classified, thoracic region, initial encounter for fracture (principal); I50.32 Chronic diastolic (congestive) heart failure; I16.0 Hypertensive urgency; R07.89 Other chest pain; W19.XXXA Unspecified fall, initial encounter; I11.0 Hypertensive heart disease with heart failure; I48.0 Paroxysmal atrial fibrillation; R05 Cough; R06.2 Wheezing; I73.9 Peripheral vascular disease, unspecified; M35.3 Polymyalgia rheumatica; R73.9 Hyperglycemia, unspecified; T38.0X5A Adverse effect of glucocorticoids and synthetic analogues, initial encounter; I77.810 Thoracic aortic ectasia; Z86.73 Personal history of transient ischemic attack (TIA), and cerebral infarction without residual deficits; Z86.79 Personal history of other diseases of the circulatory system; Z79.52 Long term (current) use of systemic steroids; Z79.82 Long term (current) use of aspirin; Z79.899 Other long term (current) drug therapy; Z82.49 Family history of ischemic heart disease and other diseases of the circulatory system

== ENCOUNTER 2021-10-30 06:21 | Inpatient (IN) ==
[2021-10-30 07:29] LABS: Basophils # (auto) 0.07 K/uL (0-0.2); Basophils % (auto) 0.7 %; Eosinophils # (auto) 0.16 K/uL (0-0.50); Eosinophils % (auto) 1.7 %; Hematocrit (blood only) 40.5 % (34.1-44.9); Immature Granulocytes # (auto) 0.05 K/uL (0.00-0.02); Immature Granulocytes % (auto) 0.5 %; Lymphocytes # (auto) 1.18 K/uL (1.2-3.4); Lymphocytes % (auto) 12.5 %; Mean Corpuscular Hemoglobin 30.4 pg (25.0-34.0); Mean Corpuscular Hgb Conc 32.1 g/dL (32.0-36.0); Mean Corpuscular Volume 94.8 fL (80.0-100.0); Mean Platelet Volume 11.3 fL (9.4-12.3); Monocytes # (auto) 0.88 K/uL (0.24-0.82); Monocytes % (auto) 9.3 %; Neutrophils % (auto) 75.3 %; Platelet Count 357 K/uL (130-400); RDW Coefficient of Variation 15.2 % (11.5-14.5); RDW Standard Deviation 51.8 fL (36.4-46.3); Red Blood Count 4.27 M/uL (3.93-5.22); White Blood Count 9.44 K/ul (4.8-10.8)
--- NOTE | 2021-10-30 07:44 | XRay Report ---
XR chest 1V portable HISTORY: 86 years-old Female Dyspnea acute shortness of breath COMPARISON: Chest radiograph 03/07/2017 TECHNIQUE: Portable AP view of the chest FINDINGS: Marked cardiomegaly with unchanged mediastinal prominence. No pneumothorax. Trace right and small lef t pleural effusions with left greater then right bibasilar consolidation. Degenerative changes of the shoulders and spine. IMPRESSION: 1. Cardiomegaly without overt pulmonary edema. 2. Left greater than right pleural effusions with bibasilar consolidation. ACT 112: Negative or not required by law. The above report was generated using voice recognition software. It may contain grammatical, syntax o r spelling errors. Electronically signed by: Luis Eduardo Almanzar M.D. 10/30/2021 7:43 AM
[2021-10-30 07:52] LABS: INR 1.9 (0.9-1.1); Prothrombin Time 19.7 Seconds (9.0-12.0)
[2021-10-30 07:54] LABS: Troponin I High Sensitivity 13.5 pg/ml (0-14)
[2021-10-30 08:01] LABS: Alanine Aminotransferase 18 U/L (7-52); Albumin Globulin Ratio 1.1 (0.9-2); Albumin Level 3.2 gm/dl (3.4-5.0); Alkaline Phosphatase 59 U/L (34-104); Anion Gap 6 (3-11); Aspartate Aminotransferase 20 U/L (13-39); BUN Creatinine Ratio 44.8 (10-20); Bilirubin,Total 0.9 mg/dl (0.2-1.0); Blood Urea Nitrogen 30 mg/dl (6-23); Calcium 9.3 mg/dl (8.5-10.1); Carbon Dioxide 31 mmol/L (21-32); Chloride 100 mmol/L (98-107); Est GFR (African American) 92.9 ml/min; Est GFR (Non-African American) 80.2 ml/min; Glucose 115 mg/dl (70-99(Fasting)); Potassium 4.3 mmol/L (3.5-5.1); Sodium 137 mmol/L (136-145); Total Protein 6.2 gm/dl (6.0-8.3)
[2021-10-30] MEDS ORDERED: METOPROLOL TARTRATE 1 MG/ML VIAL IV STA (08:13)
--- NOTE | 2021-10-30 08:19 | Emergency Department Note ---
History of Present Illness General Chief complaint: Shortness of Breath/Dyspnea Stated complaint: SOB,WEAKNESS Time Seen by Provider: 10/30/21 06:43 History of Present Illness Maximum Pain Intensity: 3 86-year-old female presents to the ED with a chief complaint of shortness of breath and generalized weakness. The patient has a history of A. fib but normally is not in A. fib according to the patient's [id number]. She is chronically on Coumadin. The patient had cataract surgery about 10 days ago. She is scheduled to have the other eye done this Tuesday. The patient states that her breathing seems to be worse with exertion as well as with laying down. She sees Dr. Austin for cardiology. Denies any recent illness. No exposures to anyone ill recently. Does not report any chest pain. No additional complaints at this time. Home Medications Medication Instructions Recorded Confirmed Type aspirin 81 mg tablet 81 mg PO QAM 10/09/21 10/26/21 History calcium carbonate-vitamin D3 500 1 cap PO QAM 10/09/21 10/26/21 History mg (1,250 mg)-50 unit capsule famotidine 20 mg tablet 20 mg PO QAM 10/09/21 10/26/21 History folic acid 1 mg tablet 1 mg PO QAM 10/09/21 10/26/21 History furosemide 20 mg tablet 20 mg PO QAM 10/09/21 10/26/21 History lisinopril 2.5 mg tablet 2.5 mg PO QAM 10/09/21 10/26/21 History methotrexate sodium 2.5 mg tablet 2.5 mg PO Q7D 10/09/21 10/26/21 History multivitamin 1 tab PO QAM 10/09/21 10/26/21 History nitroglycerin 0.4 mg sublingual 0.4 mg sublingual UD PRN Chest Pain 10/09/21 10/26/21 History tablet potassium chloride 10 mEq 20 meq PO QAM 10/09/21 10/26/21 History capsule,extended release prednisone 5 mg tablet 5 mg PO QAM 10/09/21 10/26/21 History sotalol 80 mg tablet 80 mg PO BID 10/09/21 10/26/21 History warfarin 1 mg tablet 1 mg PO UD 10/09/21 10/26/21 History warfarin 2.5 mg tablet 2.5 mg PO UD 10/09/21 10/26/21 History Allergies Allergy/AdvReac Type Severity Reaction Status Date / Time vancomycin Allergy Intermediate HIVES Verified 10/26/21 17:30 Sulfa (Sulfonamide Allergy Unknown . Verified 10/26/21 17:30 Antibiotics) trimethoprim Allergy Unknown Verified 10/26/21 17:30 Past Med/Surg History Medical History Atrial fibrillation stable, controlled w/meds. f/u Jannette Barbosa Cardiac murmur hx f/u Jannette Barbosa Rheumatoid arthritis Stroke 1999, "mild", now on warfarin; f/u Jannette Barbosa Surgical History History of esophagogastroduodenoscopy ([place]GD) 2019, [place], Peg tube placed "for several months then removed" History of right cataract surgery Hx of appendectomy Hx of total knee replacement rt/lt Social History Smoking Status: Never smoker Second Hand Exposure: No; Hx Alcohol Use: No Hx Substance Use: No Preferred Language: Stateless Communication Ability: Effective Second Grade Teacher Required: No Beliefs That Will Affect Care: None Current Living Situation: Alone Feels Safe at Home: Yes Assistive Devices: Glasses and Walker Review of Systems A total of 10 systems reviewed and were otherwise negative Physical Exam Vital Signs Vital Signs - 24 hr 10/30/21 06:27 10/30/21 07:13 10/30/21 07:13 Temperature 36.7 C Temperature Source Temporal Artery Scan Pulse Rate 117 H Pulse Rate [Finger] Respiratory Rate 18 Respiratory Effort / Characteristics Non-Labored Spontaneous Respiratory Depth Normal Blood Pressure 107/78 Blood Pressure [Right Arm] Blood Pressure Mean 87 Blood Pressure Mean [Right Arm] Blood Pressure Position Sitting Pulse Oximetry 94 96 96 Oxygen Delivery Method Room Air Nasal Cannula Nasal Cannula Oxygen Flow Rate 2 2 Sepsis Recent Fever Within 48 Hours No Sepsis New/Unexplained Change in Mental Status N/A Sepsis Action Taken by Nursing No Action Required 10/30/21 07:16 Temperature Temperature Source Pulse Rate Pulse Rate [Finger] 123 H Respiratory Rate 30 H Respiratory Effort / Characteristics Respiratory Depth Blood Pressure Blood Pressure [Right Arm] 144/83 H Blood Pressure Mean Blood Pressure Mean [Right Arm] 103 Blood Pressure Position Pulse Oximetry 92 Oxygen Delivery Method Nasal Cannula Oxygen Flow Rate 2 Sepsis Recent Fever Within 48 Hours Sepsis New/Unexplained Change in Mental Status Sepsis Action Taken by Nursing CONSTITUTIONAL/VITAL SIGNS: Reviewed / noted above. GENERAL: Non-toxic in appearance. INTEGUMENTARY: Warm, dry, and [place]. HEAD: Normocephalic. EYES: without scleral icterus or trauma. ENT/OROPHARYNX: clear and moist. LYMPHADENOPATHY/NECK: Is supple without lymphadenopathy or meningismus. RESPIRATORY: Clear to auscultation bilaterally. No increased work of breathing. CARDIOVASCULAR: Rapid rate and irregular rhythm GI/ABDOMEN: Soft and nontender. No organomegaly or pulsatile mass. EXTREMITIES: Warm and well perfused. BACK: No CVA tenderness. NEUROLOGICAL: Intact without focal deficits. PSYCHIATRIC: normal affect. MUSCULOSKELETAL: Normally developed with good muscle tone. TRIAGE NURSING DOCUMENTATION REVIEWED. Medical Decision Making Differential Diagnosis Differential includes acute coronary syndrome, myocardial infarction, CVA, TIA, anemia, infection, pneumonia, UTI, pyelonephritis, poor nutrition, dehydration, electrolyte disturbance,hypoglycemia. Medical Records Attestation: I reviewed the patient's medical records. Home Medications Current Medication List: was personally reviewed by me Laboratory Data Attestation: I reviewed the patient's lab results. Result diagrams: 10/30/21 07:15 10/30/21 07:15 Lab Results 10/30/21 10/30/21 10/30/21 Range/Units 07:15 07:15 07:15 WBC 9.44 (4.8-10.8) K/ul RBC 4.27 (3.93-5.22) M/uL Hgb 13.0 (12.0-16.0) g/dl Hct 40.5 (34.1-44.9) % MCV 94.8 (80.0-100.0) fL MCH 30.4 (25.0-34.0) pg MCHC 32.1 (32.0-36.0) g/dL RDW Std Deviation 51.8 H (36.4-46.3) fL RDW Coeff of Peter 15.2 H (11.5-14.5) % Plt Count 357 (130-400) K/uL MPV 11.3 (9.4-12.3) fL Immature Gran % (Auto) 0.5 % Neut % (Auto) 75.3 % Lymph % (Auto) 12.5 % Terry % (Auto) 9.3 % Eos % (Auto) 1.7 % Baso % (Auto) 0.7 % Neut # (Auto) 7.10 H (1.4-6.5) K/uL Lymph # (Auto) 1.18 L (1.2-3.4) K/uL Terry # (Auto) 0.88 H (0.24-0.82) K/uL Eos # (Auto) 0.16 (0-0.50) K/uL Baso # (Auto) 0.07 (0-0.2) K/uL Immature Gran # (Auto) 0.05 H (0.00-0.02) K/uL PT 19.7 H (9.0-12.0) Seconds INR 1.9 H (0.9-1.1) Sodium 137 (136-145) mmol/L Potassium 4.3 (3.5-5.1) mmol/L Chloride 100 (98-107) mmol/L Carbon Dioxide 31 (21-32) mmol/L Anion Gap 6 (3-11) BUN 30 H (6-23) mg/dl Creatinine 0.67 (0.6-1.2) mg/dl Est Cr Clr Drug Dosing Not Reportable Est GFR ( Amer) 92.9 ml/min Est GFR (Non-Af Amer) 80.2 ml/min BUN/Creatinine Ratio 44.8 H (10-20) Glucose 115 H (70-99(Fasting)) mg/dl Calcium 9.3 (8.5-10.1) mg/dl Total Bilirubin 0.9 (0.2-1.0) mg/dl AST 20 (13-39) U/L ALT 18 (7-52) U/L Alkaline Phosphatase 59 (34-104) U/L Troponin I High Sens 13.5 (0-14) pg/ml Total Protein 6.2 (6.0-8.3) gm/dl Albumin 3.2 L (3.4-5.0) gm/dl Globulin 3.0 (2.5-4.0) gm/dl Albumin/Globulin Ratio 1.1 (0.9-2) SARS-CoV-2, RNA, NAAT (NEGATIVE) 10/30/21 Range/Units 07:15 WBC (4.8-10.8) K/ul RBC (3.93-5.22) M/uL Hgb (12.0-16.0) g/dl Hct (34.1-44.9) % MCV (80.0-100.0) fL MCH (25.0-34.0) pg MCHC (32.0-36.0) g/dL RDW Std Deviation (36.4-46.3) fL RDW Coeff of Peter (11.5-14.5) % Plt Count (130-400) K/uL MPV (9.4-12.3) fL Immature Gran % (Auto) % Neut % (Auto) % Lymph % (Auto) % Terry % (Auto) % Eos % (Auto) % Baso % (Auto) % Neut # (Auto) (1.4-6.5) K/uL Lymph # (Auto) (1.2-3.4) K/uL Terry # (Auto) (0.24-0.82) K/uL Eos # (Auto) (0-0.50) K/uL Baso # (Auto) (0-0.2) K/uL Immature Gran # (Auto) (0.00-0.02) K/uL PT (9.0-12.0) Seconds INR (0.9-1.1) Sodium (136-145) mmol/L Potassium (3.5-5.1) mmol/L Chloride (98-107) mmol/L Carbon Dioxide (21-32) mmol/L Anion Gap (3-11) BUN (6-23) mg/dl Creatinine (0.6-1.2) mg/dl Est Cr Clr Drug Dosing Est GFR ( Amer) ml/min Est GFR (Non-Af Amer) ml/min BUN/Creatinine Ratio (10-20) Glucose (70-99(Fasting)) mg/dl Calcium (8.5-10.1) mg/dl Total Bilirubin (0.2-1.0) mg/dl AST (13-39) U/L ALT (7-52) U/L Alkaline Phosphatase (34-104) U/L Troponin I High Sens (0-14) pg/ml Total Protein (6.0-8.3) gm/dl Albumin (3.4-5.0) gm/dl Globulin (2.5-4.0) gm/dl Albumin/Globulin Ratio (0.9-2) SARS-CoV-2, RNA, NAAT NEGATIVE (NEGATIVE) Imaging Data Radiologist's Impression: Chest X-Ray 10/30/21 06:37 XR chest 1V portable HISTORY: 86 years-old Female Dyspnea acute shortness of breath COMPARISON: Chest radiograph 03/07/2017 TECHNIQUE: Portable AP view of the chest FINDINGS: Marked cardiomegaly with unchanged mediastinal prominence. No pneumothorax. Trace right and small left pleural effusions with left greater then right bibasilar consolidation. Degenerative changes of the shoulders and spine. IMPRESSION: 1. Cardiomegaly without overt pulmonary edema. 2. Left greater than right pleural effusions with bibasilar consolidation. ACT 112: Negative or not required by law. The above report was generated using voice recognition software. It may contain grammatical, syntax or spelling errors. Electronically signed by: Luis Eduardo Almanzar M.D. 10/30/2021 7:43 AM ECG Data Attestation: I personally reviewed and interpreted this ECG as follows: Additional Comments: Twelve-lead EKG: Per my interpretation shows atrial fibrillation with a heart rate of 106. No ST elevation. No PVCs. Normal QTC. MDM Narrative 86-year-old female presents with exertional dyspnea and dyspnea with laying supine. She also complains of some generalized weakness. She is not chronically in A. fib although presents today with atrial fibrillation with mild RVR. CBC was normal. INR is 1.9. She is on chronic Coumadin therapy. Chemistry panel was unremarkable. Troponin was negative. COVID test was negative and a chest x-ray shows cardiomegaly with left greater than right pleural effusions. No recent symptoms of pneumonia. The patient was told the results of the test. Because of her symptoms and A. fib, she was given 5 mg IV Lopressor. She will be seen by the hospitalist for further evaluation and care Impression & Plan Atrial fibrillation with RVR Discharge Plan Visit Data Chief Complaint: Shortness of Breath/Dyspnea Stated Complaint: SOB,WEAKNESS ED Provider: Kp Mensah Discharge Problem: Atrial fibrillation with RVR Patient Disposition: Being Evaluated by Hospitalist Forms Stand Alone Forms: [facility] Prescriptions Prescriptions: No Action warfarin 2.5 mg Tablet 2.5 mg PO UD Rx Instructions: , , sun. warfarin 1 mg Tablet 1 mg PO UD Rx Instructions: tue, tue, tuesday, sun. multivitamin Tablet 1 tab PO QAM potassium chloride 10 mEq Capsule, Extended Release 20 meq PO QAM sotalol 80 mg Tablet 80 mg PO BID prednisone 5 mg Tablet 5 mg PO QAM famotidine 20 mg Tablet 20 mg PO QAM methotrexate sodium 2.5 mg Tablet 2.5 mg PO Q7D nitroglycerin 0.4 mg Tablet, Sublingual 0.4 mg sublingual UD PRN (Reason: Chest Pain) folic acid 1 mg Tablet 1 mg PO QAM aspirin 81 mg Tablet 81 mg PO QAM furosemide 20 mg Tablet 20 mg PO QAM lisinopril 2.5 mg Tablet 2.5 mg PO QAM calcium carbonate-vitamin D3 500 mg(1,250mg) -50 unit Capsule 1 cap PO QAM Referrals Referrals: Brayan Estes MD [Primary Care Provider] -
--- NOTE | 2021-10-30 09:27 | History & Physical Report ---
Date of Service October 30, 2021 Assessment & Plan (1) Paroxysmal atrial fibrillation with rapid ventricular response: Plan PAF with RVR - on sotalol, coumadin which will be continued - INR subtherapeutic at 1.9- will give heparin drip until INR therapeutic, continue coumadin- states her dose was changed recently (2.5 mg on Tuesday and half tab rest of the week) - Follows with cardio- will consult for further management Chronic diastolic CHF with valvular heart disease- mild exacerbation due to AFib. Has orthopnea, dyspnea and leg swelling. Home dose is lasix 20 mg daily. Will give iv lasix 20 mg daily and see response. Daily weight, I and Os. Dose in am according to the response - Last echo 08/2020 with EF 60-64% with mod MR, sev TR, mild AR, severe pulm HTN, proximal ascending aortic size of 5 cm - Check repeat echo Polymyositis, PMR- on MTX, prednisone. Takes MTX 2.5 mg 8 tabs on Tuesday HTN- on very low dose of lisinopril, BP stable, hold lisinopril for now to allow room for rate controlling medications if needed. DVT ppx- coumadin, heparin drip Dispo- PCU on tele Full code History of Present Illness Chief Complaint: Shortness of breath, weakness Primary Care Provider: Brayan Estes MD 86 year old female with h/o PAF on coumadin, chronic diastolic CHF on lasix, ascending aorta dilation, moderate MR, CVA, polymyositis, PMR on chronic prednisone, osteoporosis, who presented to the ED with shortness of breath and weakness for the past week. Patient had cataract surgery last Tuesday a week ago and her symptoms started 2 days later on Tuesday. She felt short of breath and weak and has progressively got worse since then. Dyspnea more with exertion. Last night she could not even lie down in bed due to dyspnea and had to sleep propped up. No fever, chills, chest pain, nausea, vomiting, cough. States her weight is stable. Has some leg swelling which is slightly worse than her normal. She states she has been taking all her medications regularly. She hasn't taken anything today yet. In the ED, she was found to be in Afib with RVR and was given a dose of lopressor. She was placed on oxygen and felt better. She does not feel when she goes into Afib but has not required any procedures for it. Allergies Allergy/AdvReac Type Severity Reaction Status Date / Time vancomycin Allergy Intermediate HIVES Verified 10/26/21 17:30 Sulfa (Sulfonamide Allergy Unknown . Verified 10/26/21 17:30 Antibiotics) trimethoprim Allergy Unknown Verified 10/26/21 17:30 Home Medications Medication Instructions Recorded Confirmed Type aspirin 81 mg tablet 81 mg PO QAM 10/09/21 10/30/21 History calcium carbonate-vitamin D3 500 1 cap PO QAM 10/09/21 10/30/21 History mg (1,250 mg)-50 unit capsule folic acid 1 mg tablet 1 mg PO QAM 10/09/21 10/30/21 History furosemide 20 mg tablet 20 mg PO QAM 10/09/21 10/30/21 History lisinopril 2.5 mg tablet 2.5 mg PO QAM 10/09/21 10/30/21 History methotrexate sodium 2.5 mg tablet 2.5 mg PO Q7D 10/09/21 10/30/21 History multivitamin 1 tab PO QAM 10/09/21 10/30/21 History nitroglycerin 0.4 mg sublingual 0.4 mg sublingual UD PRN Chest Pain 10/09/21 10/30/21 History tablet prednisone 5 mg tablet 5 mg PO QAM 10/09/21 10/30/21 History sotalol 80 mg tablet 80 mg PO BID 10/09/21 10/30/21 History warfarin 1 mg tablet 1 mg PO UD 10/09/21 10/30/21 History warfarin 2.5 mg tablet 2.5 mg PO UD 10/09/21 10/30/21 History Past Med/Surg History Medical History Atrial fibrillation stable, controlled w/meds. f/u Jannette Barbosa Cardiac murmur hx f/u Jannette Barbosa Rheumatoid arthritis Stroke 1999, "mild", now on warfarin; f/u Jannette Barbosa Surgical History History of esophagogastroduodenoscopy ([place]) [place], [place], Peg tube placed "for several months then removed" History of right cataract surgery Hx of appendectomy Hx of total knee replacement rt/lt Social History Smoking Status: Never smoker Second Hand Exposure: No; Do You Dip or Chew Tobacco: No; Tobacco Cessation Education Requested by Patient: No Hx Alcohol Use: No Hx Substance Use: No Preferred Language: Croatian Communication Ability: Effective Stenciling Machine Tender Required: No Beliefs That Will Affect Care: None Current Living Situation: Alone Other Information That Helps Us Care for You: No Feels Safe at Home: Yes Safety Concerns: Feels Safe At This Time Assistive Devices: Lift Chair, Raised Toilet Seat and Walker Review of Systems Review of Systems: All systems reviewed & are unremarkable except as noted in Subjective Physical Exam Physical Exam: General: Sitting comfortably in bed, not in acute distress, on NC HEENT: EOMI, SUZANNE, MMM Chest: Clear breath sounds bilaterally, no wheezes or crackles CVS: Irregularly irregular, normal heart sounds Abdomen: Soft, non tender, not distended, normal bowel sounds Neuro: Awake, alert, oriented, conversing well, non focal Extremities: 1+ edema in LE Results & Data Results & Data ([facility]) Vital Signs (Past 12 Hours) Vital Signs Temp Pulse Pulse Resp BP BP Pulse Ox 10/30/21 09:10 110 H 28 H 111/71 94 10/30/21 08:37 111 H 28 H 129/73 97 10/30/21 07:16 123 H 30 H 144/83 H 92 10/30/21 07:13 96 10/30/21 07:13 96 10/30/21 06:27 36.7 C 117 H 18 107/78 94 O2 Del Method O2 Flow Rate 10/30/21 09:10 Nasal Cannula 2 10/30/21 08:37 Nasal Cannula 2 10/30/21 07:16 Nasal Cannula 2 10/30/21 07:13 Nasal Cannula 2 10/30/21 07:13 Nasal Cannula 2 10/30/21 06:27 Room Air Laboratory Results Short CBC 10/30/21 Range/Units 07:15 WBC 9.44 (4.8-10.8) K/ul Hgb 13.0 (12.0-16.0) g/dl Hct 40.5 (34.1-44.9) % Plt Count 357 (130-400) K/uL BMP 10/30/21 07:15 Sodium 137 Potassium 4.3 Chloride 100 Carbon Dioxide 31 BUN 30 H Creatinine 0.67 Glucose 115 H Calcium 9.3 Liver Function 10/30/21 Range/Units 07:15 Total Bilirubin 0.9 (0.2-1.0) mg/dl AST 20 (13-39) U/L ALT 18 (7-52) U/L Alkaline Phosphatase 59 (34-104) U/L Albumin 3.2 L (3.4-5.0) gm/dl Diagnostic Findings Chest X-Ray 10/30/21 06:37 XR chest 1V portable HISTORY: 86 years-old Female Dyspnea acute shortness of breath COMPARISON: Chest radiograph 03/07/2017 TECHNIQUE: Portable AP view of the chest FINDINGS: Marked cardiomegaly with unchanged mediastinal prominence. No pneumothorax. Trace right and small left pleural effusions with left greater then right bibasilar consolidation. Degenerative changes of the shoulders and spine. IMPRESSION: 1. Cardiomegaly without overt pulmonary edema. 2. Left greater than right pleural effusions with bibasilar consolidation. ACT 112: Negative or not required by law. The above report was generated using voice recognition software. It may contain grammatical, syntax or spelling errors. Electronically signed by: Luis Eduardo Almanzar M.D. 10/30/2021 7:43 AM Code Status & VTE Plan VTE Prophylaxis Plan VTE Prophylaxis will be ordered: Yes
[2021-10-30] MEDS ORDERED: Heparin IV Adult Wt-Based Low-Dose *NO* Bolus Protocol IV SCH (09:59)
[2021-10-30] MEDS ORDERED: FUROSEMIDE INJ 20 MG/2 ML VIAL IV ONE (10:15)
[2021-10-30] MEDS ORDERED: HEPARIN 25000 UNIT/500 ML D5W IV ONE (10:21)
[2021-10-30] MEDS ORDERED: FUROSEMIDE 40 MG/4 ML VIAL IV ONE (10:21)
[2021-10-30] MEDS: FOLIC ACID 1 MG TAB PO SCH (11:24)
[2021-10-30] MEDS: ASPIRIN 81 MG ECTAB PO SCH (11:25)
[2021-10-30] MEDS: HEPARIN SODIUM/DEXTROSE 25,000 UNITS/500 ML BAG IV SCH ×2 (11:25→19:13)
[2021-10-30] MEDS: predniSONE 5 MG TAB PO SCH (11:25)
[2021-10-30] MEDS: SOTALOL HCL 80 MG TAB PO SCH ×2 (11:25→20:10)
[2021-10-30 11:35] LABS: Appearance Urine Clear (Clear); Bacteria Urine Automated Negative (Negative); Bilirubin Urine Negative (Negative); Blood Urine Negative (Negative); Cast Urine Automated 0 /lpf (0-5); Color Urine Yellow; Epithelial Cell Urine Auto 20-30 /lpf (0-5); Glucose Urine UA Negative (Negative); Ketones Urine Trace (Negative); Leukocyte Esterase Urine 1+ (Negative); Nitrite Urine Negative (Negative); Protein Urine 1+ (Negative); RBC Urine Automated 0-4 /hpf (0-4); Specific Gravity Urine 1.015 (1.000-1.030); Urobilinogen Urine Negative (Negative); pH Urine 5.5 (4.5-7.5)
[2021-10-30] MEDS ORDERED: WARFARIN SOD 2.5 MG TAB PO SCH (16:00)
[2021-10-30 17:25] LABS: Partial Thromboplastin Ratio 1.9
[2021-10-30 17:43] LABS: Partial Thromboplastin Time 51.7 Seconds (21.0-31.0)
[2021-10-30] MEDS ORDERED: POLYETHYLENE (MIRALAX) 17 GM PACK PO PRN (18:18)
[2021-10-30] MEDS ORDERED: ACETAMINOPHEN 325 MG TAB PO PRN (18:18)
--- NOTE | 2021-10-30 21:18 | Electrocardiogram Report ---
Test Reason : Blood Pressure : / mmHG Vent. Rate : 106 BPM Atrial Rate : 105 BPM P-R Int : 000 ms QRS Dur : 092 ms QT Int : 354 ms P-R-T Axes : 000 -48 013 degrees QTc Int : 470 ms Poor data quality, interpretation may be adversely affected Atrial fibrillation with rapid ventricular response with premature ventricular or aberrantly conducte d complexes Low voltage QRS Incomplete right bundle branch block Left anterior fascicular block Abnormal ECG When compared with ECG of 13-MAR-2017 08:40, Atrial fibrillation has replaced Sinus rhythm T wave inversion no longer evident in Anterior leads Confirmed by Roberto Moralez ([id number]) on 10/30/2021 9:17:47 PM Referred By: REFERRED SELF Confirmed By:Roberto Moralez
[2021-10-31 06:53] LABS: Hematocrit (blood only) 42.1 % (34.1-44.9); Hemoglobin 13.3 g/dl (12.0-16.0); Mean Corpuscular Hemoglobin 30.3 pg (25.0-34.0); Mean Corpuscular Hgb Conc 31.6 g/dL (32.0-36.0); Mean Corpuscular Volume 95.9 fL (80.0-100.0); Mean Platelet Volume 11.1 fL (9.4-12.3); Platelet Count 354 K/uL (130-400); RDW Coefficient of Variation 14.9 % (11.5-14.5); RDW Standard Deviation 51.6 fL (36.4-46.3); Red Blood Count 4.39 M/uL (3.93-5.22); White Blood Count 9.54 K/ul (4.8-10.8)
[2021-10-31 07:06] LABS: Albumin Globulin Ratio 1.1 (0.9-2); Albumin Level 3.2 gm/dl (3.4-5.0); BUN Creatinine Ratio 43.5 (10-20); Bilirubin,Total 0.6 mg/dl (0.2-1.0); Calcium 9.3 mg/dl (8.5-10.1); Creatinine Clr Calc Pharmacy 59.4 ml/min; Est GFR (Non-African American) 79.4 ml/min; Globulin 2.9 gm/dl (2.5-4.0); Magnesium 1.7 mg/dl (1.7-2.4); Potassium 4.7 mmol/L (3.5-5.1); Total Protein 6.1 gm/dl (6.0-8.3)
[2021-10-31 07:17] LABS: INR 2.5 (0.9-1.1); Partial Thromboplastin Ratio 2.3; Prothrombin Time 24.9 Seconds (9.0-12.0)
[2021-10-31 07:18] LABS: Partial Thromboplastin Time 62.6 Seconds (21.0-31.0)
[2021-10-31] MEDS: FOLIC ACID 1 MG TAB PO SCH (08:06)
[2021-10-31] MEDS: ASPIRIN 81 MG ECTAB PO SCH (08:06)
[2021-10-31] MEDS: predniSONE 5 MG TAB PO SCH (08:06)
[2021-10-31] MEDS: SOTALOL HCL 80 MG TAB PO SCH ×2 (08:06→20:03)
--- NOTE | 2021-10-31 08:49 | Cardiology Consultation ---
Date of Consultation October 31, 2021 Assessment & Plan (1) Persistent atrial fibrillation: (2) Congestive heart failure with left ventricular diastolic dysfunction: Plan The patient is clinically comfortable. Her echocardiogram indicates that her left trickle her cavity size is small and hyperdynamic. I do not think she is volume overloaded and therefore I reduced her Lasix dose. She currently has good rate control. Her INR is 2.5 today and I discontinued her heparin. History of Present Illness Attending Physician: Eduardo Garcia MD History of Present Illness This is a pleasant 86-year-old female who had the sudden onset yesterday of dizziness and shortness of breath. She has a history of paroxysmal atrial fibrillation and has been well controlled on sotalol and warfarin. Upon presentation, she was in a rate controlled atrial fibrillation and mild congestive heart failure. The patient was given IV Lasix and admitted to the hospital. She feels better today. She remains in atrial fibrillation. Her INR on admission was subtherapeutic at 1.5. Earlier this week she had eye surgery that was uneventful. She took her warfarin through the surgery nonstop. She states that she has been consistent with taking her medications. She has had no chest pain. She denies orthopnea. History includes: 1.Hospitalization with acute chest pain and chest wall pain 03/10/2017 with noted thoracic vertebrae compression fractures as etiology of complaints. 2.Transient in hospital atrial fibrillation with conversion to sinus with sotalol, significantly elevated AKHIL S2 score, now on chronic anticoagulation. 3.Polymyalgia rheumatica. 4.History of acute catecholamine stress-induced cardiomyopathy, July 2012 with return to normal LV function. 5.Hypertension with hypertensive heart disease. 6.Severe mitral tricuspid insufficiency. 7.Ascending aortic dilatation. 8.Statin induced myalgia history 9. Pulm hypertension Allergies Allergy/AdvReac Type Severity Reaction Status Date / Time vancomycin Allergy Intermediate HIVES Verified 10/26/21 17:30 Sulfa (Sulfonamide Allergy Unknown . Verified 10/26/21 17:30 Antibiotics) trimethoprim Allergy Unknown Verified 10/26/21 17:30 Home Medications Medication Instructions Recorded Confirmed Type aspirin 81 mg tablet 81 mg PO QAM 10/09/21 10/30/21 History calcium carbonate-vitamin D3 500 1 cap PO QAM 10/09/21 10/30/21 History mg (1,250 mg)-50 unit capsule folic acid 1 mg tablet 1 mg PO QAM 10/09/21 10/30/21 History furosemide 20 mg tablet 20 mg PO QAM 10/09/21 10/30/21 History lisinopril 2.5 mg tablet 2.5 mg PO QAM 10/09/21 10/30/21 History methotrexate sodium 2.5 mg tablet 2.5 mg PO Q7D 10/09/21 10/30/21 History multivitamin 1 tab PO QAM 10/09/21 10/30/21 History nitroglycerin 0.4 mg sublingual 0.4 mg sublingual UD PRN Chest Pain 10/09/21 10/30/21 History tablet prednisone 5 mg tablet 5 mg PO QAM 10/09/21 10/30/21 History sotalol 80 mg tablet 80 mg PO BID 10/09/21 10/30/21 History warfarin 1 mg tablet 1 mg PO UD 10/09/21 10/30/21 History warfarin 2.5 mg tablet 2.5 mg PO UD 10/09/21 10/30/21 History Patient History Medical History (Updated 10/31/21 @ 14:06 by Bertha Almanza DO) Atrial fibrillation stable, controlled w/meds. f/u Jannette Barbosa Cardiac murmur hx f/u Jannette Barbosa Rheumatoid arthritis Stroke 1999, "mild", now on warfarin; f/u Jannette Barbosa Surgical History History of esophagogastroduodenoscopy (EGD) 2019, [place], Peg tube placed "for several months then removed" History of right cataract surgery Hx of appendectomy Hx of total knee replacement rt/lt Social History Smoking Status: Never smoker Second Hand Exposure: No; Do You Dip or Chew Tobacco: No; Tobacco Cessation Education Requested by Patient: No Hx Alcohol Use: No Hx Substance Use: No Preferred Language: Estonian Communication Ability: Effective 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 All other 10 point review of systems are negative. Physical Exam Physical Exam: General: no acute distress and stated age Head: normocephalic, no masses, lesions, tenderness or abnormalities Eyes: conjunctiva are pink and non-injected, sclera clear Neck: supple, no adenopathy, no bruits, normal jugular venous pulse, no hepatojugular reflux Chest: normal shape and normal respiratory effort Lungs: clear to auscultation and percussion Cardiac Exam: - regular rate & rhythm, no murmurs gallops or rubs - normal S1, normal S2 Pulses: 2(+) throughout Abdomen: abdomen soft, non-tender, no abnormal masses and no hepatosplenomegaly Musculoskeletal: no gait disturbance, no joint inflammation, no deforming arthritis Extremities: no edema and no cyanosis Neuro: grossly normal exam Results & Data ([facility]) Vital Signs (Past 12 Hours) Vital Signs Temp Pulse Pulse Resp BP Pulse Ox O2 Del Method 10/31/21 07:37 36.5 C 97 H 18 112/74 97 Nasal Cannula 10/31/21 04:26 36.9 C 104 H 14 126/81 100 Nasal Cannula 10/30/21 23:29 37.1 C 102 H 12 109/75 99 Nasal Cannula 10/30/21 23:19 83 10/30/21 21:04 Nasal Cannula O2 Flow Rate 10/31/21 07:37 2 10/31/21 04:26 2 10/30/21 23:29 2 10/30/21 23:19 10/30/21 21:04 2 Laboratory Results Laboratory Results - last 24 hr 10/30/21 10/30/21 10/30/21 10:13 11:00 16:40 WBC RBC Hgb Hct MCV MCH MCHC RDW Std Deviation RDW Coeff of Peter Plt Count MPV PT INR APTT 51.7 H* PTT Ratio 1.9 Sodium Potassium Chloride Carbon Dioxide Anion Gap BUN Creatinine Est Cr Clr Drug Dosing Est GFR ( Amer) Est GFR (Non-Af Amer) BUN/Creatinine Ratio Glucose Calcium Magnesium Total Bilirubin AST ALT Alkaline Phosphatase B-Natriuretic Peptide 715 H Total Protein Albumin Globulin Albumin/Globulin Ratio Urine Color Yellow Urine Appearance Clear Urine pH 5.5 Ur Specific [place] 1.015 Urine Protein 1+ H Urine Glucose (UA) Negative Urine Ketones Trace H Urine Blood Negative Urine Nitrite Negative Urine Bilirubin Negative Urine Urobilinogen Negative Ur Leukocyte Esterase 1+ H Urine WBC (Auto) 5-10 H Urine RBC (Auto) 0-4 U Hyaline Cast (Auto) 0 U Epithel Cells (Auto) 20-30 H Urine Bacteria (Auto) Negative 10/31/21 10/31/21 10/31/21 06:31 06:31 06:31 WBC 9.54 RBC 4.39 Hgb 13.3 Hct 42.1 MCV 95.9 MCH 30.3 MCHC 31.6 L RDW Std Deviation 51.6 H RDW Coeff of Peter 14.9 H Plt Count 354 MPV 11.1 PT 24.9 H INR 2.5 H APTT 62.6 H* PTT Ratio 2.3 Sodium 137 Potassium 4.7 Chloride 98 Carbon Dioxide 34 H Anion Gap 5 BUN 30 H Creatinine 0.69 Est Cr Clr Drug Dosing 59.4 Est GFR ( Amer) 92.0 Est GFR (Non-Af Amer) 79.4 BUN/Creatinine Ratio 43.5 H Glucose 110 H Calcium 9.3 Magnesium 1.7 Total Bilirubin 0.6 AST 16 ALT 14 Alkaline Phosphatase 57 B-Natriuretic Peptide Total Protein 6.1 Albumin 3.2 L Globulin 2.9 Albumin/Globulin Ratio 1.1 Urine Color Urine Appearance Urine pH Ur Specific [place] Urine Protein Urine Glucose (UA) Urine Ketones Urine Blood Urine Nitrite Urine Bilirubin Urine Urobilinogen Ur Leukocyte Esterase Urine WBC (Auto) Urine RBC (Auto) U Hyaline Cast (Auto) U Epithel Cells (Auto) Urine Bacteria (Auto) Medications Administered Current Inpatient Medications Acetaminophen (Acetaminophen 325 Mg Tab) 650 mg PO Q4H PRN PRN Reason: Pain or Fever Stop: 11/29/21 18:17 Aspirin (Aspirin 81 Mg Ectab) 81 mg PO [facility] Stop: 11/29/21 10:59 Last Admin: 10/31/21 08:06 Dose: 81 mg Folic Acid (Folic Acid 1 Mg Tab) [facility] Stop: 11/29/21 09:59 Last Admin: 10/31/21 08:06 Dose: 1 mg Furosemide (Furosemide 20 Mg Tab) 20 mg PO [facility] Stop: 12/01/21 08:59 Polyethylene Glycol (Polyethylene (Miralax) 17 Gm Pack) 17 gm PO DAILY PRN PRN Reason: Constipation Stop: 11/29/21 18:17 Potassium Chloride (Potassium Chloride Crtab 20 Meq Tabcr) 20 [facility] [place] Stop: 11/30/21 08:59 Last Admin: 10/31/21 08:07 Dose: 20 meq Prednisone (Prednisone 5 Mg Tab) 5 mg PO QAM [facility] Stop: 11/29/21 10:59 Last Admin: 10/31/21 08:06 Dose: 5 mg Sotalol HCl (Sotalol Hcl 80 Mg Tab) 80 mg PO BID [facility] Stop: 11/29/21 10:59 Last Admin: 10/31/21 08:06 Dose: 80 mg Warfarin Sodium (Warfarin Sod 2.5 Mg Tab) 2.5 mg PO DAILY@1600 [facility] Stop: 10/31/21 15:59 Last Admin: 10/30/21 20:08 Dose: 2.5 mg
[2021-10-31] MEDS ORDERED: POTASSIUM CHLORIDE CRTAB 20 MEQ TABCR PO SCH (09:00)
[2021-10-31] MEDS ORDERED: FUROSEMIDE INJ 20 MG/2 ML VIAL IV SCH (09:00)
--- NOTE | 2021-10-31 10:13 | Hospitalist Progress Note ---
Date of Service October 31, 2021 Assessment & Plan (1) Atrial fibrillation with rapid ventricular response: Plan: Cont sotalol, rate has improved. Further adjustments per cardiology (2) Congestive heart failure with left ventricular diastolic dysfunction: Plan: chronic, not in exacerbation-examines as euvolemic. Lasix dose wass reduced to 20mg PO daily. (3) Rheumatoid arthritis: Plan: chronic, stable. Cont MTX and daily prednisone. (4) H/O: stroke: Plan: heparin bridge was started with initial INR 1.9. INR now 2.5 this am and heparin drip has been stopped. (5) Ambulatory dysfunction: Plan: PT and OT to assess. (6) DVT prophylaxis: Plan: coumadin Full code Dispo-per cardiology DO [facility] Admission and Anticipated Discharge Date Admission Date: October 30, 2021 Subjective The patient is an 86-year-old female with a history of paroxysmal atrial fibrillation who presents with rapid ventricular response. She reports a 1 week history post cataract surgery of feeling fatigued and rundown. She also reports some shortness of breath with dyspnea on exertion that has been progressive. She has been having orthopnea. She is noted to be on sotalol and Coumadin and this was continued. Cardiology was consulted and does not feel she is volume overloaded and therefore her Lasix dose has been reduced. She currently has good rate control and will continue on current therapy. She denies any chest pain or acute shortness of breath at rest today She has no other issues on review of systems. Review of Systems Review of Systems: All systems were reviewed and negative except as indicated above. Physical Exam Physical Exam: CONSTITUTIONAL: WNWD, vitals as above, generally well- appearing, NAD EYES: normal conjunctivae, no scleral icterus, ENT: external ear and nose normal, MMM NECK: trachea midline, RESPIRATORY: clear to auscultation bilaterally, no crackles, rales or wheezes, normal respiratory effort CARDIOVASCULAR: irregular rate and rhythm, S1 and 2 heard without murmurs, gallops or rubs, no JVD, no peripheral edema CHEST: inspection of chest was normal GASTROINTESTINAL: soft, nontender, ND, no guarding MUSCULOSKELETAL: strength 5/5 throughout, head is normocephalic and atraumatic SKIN: warm and dry NEUROLOGIC: CN 2-12 grossly intact, no sensory deficit, normal cognition, normal speech, no tremor PSYCHIATRIC: alert cooperative and oriented to person, place and time. Euthymic mood, makes good eye contact, language grossly intact, recent and remote memory grossly intact. Results & Data Results & Data ([facility]) Vital Signs (Past 12 Hours) Vital Signs Temp Pulse Pulse Resp BP Pulse Ox O2 Del Method 10/31/21 07:37 36.5 C 97 H 18 112/74 97 Nasal Cannula 10/31/21 04:26 36.9 C 104 H 14 126/81 100 Nasal Cannula 10/30/21 23:29 37.1 C 102 H 12 109/75 99 Nasal Cannula 10/30/21 23:19 83 O2 Flow Rate 10/31/21 07:37 2 10/31/21 04:26 2 10/30/21 23:29 2 10/30/21 23:19 Laboratory Results Short CBC 10/31/21 Range/Units 06:31 WBC 9.54 (4.8-10.8) K/ul Hgb 13.3 (12.0-16.0) g/dl Hct 42.1 (34.1-44.9) % Plt Count 354 (130-400) K/uL BMP 10/31/21 06:31 Sodium 137 Potassium 4.7 Chloride 98 Carbon Dioxide 34 H BUN 30 H Creatinine 0.69 Glucose 110 H Calcium 9.3 Liver Function 10/31/21 Range/Units 06:31 Total Bilirubin 0.6 (0.2-1.0) mg/dl AST 16 (13-39) U/L ALT 14 (7-52) U/L Alkaline Phosphatase 57 (34-104) U/L Albumin 3.2 L (3.4-5.0) gm/dl Medications Administered Current Inpatient Medications Acetaminophen (Acetaminophen 325 Mg Tab) 650 mg PO Q4H PRN PRN Reason: Pain or Fever Stop: 11/29/21 18:17 Aspirin (Aspirin 81 Mg Ectab) 81 mg PO [facility] Stop: 11/29/21 10:59 Last Admin: 10/31/21 08:06 Dose: 81 mg Folic Acid (Folic Acid 1 Mg Tab) [facility]: 11/29/21 09:59 Last Admin: 10/31/21 08:06 Dose: 1 mg Furosemide (Furosemide 20 Mg Tab) 20 mg PO [facility] Stop: 12/01/21 08:59 Polyethylene Glycol (Polyethylene (Miralax) 17 Gm Pack) 17 gm PO DAILY PRN PRN Reason: Constipation Stop: 11/29/21 18:17 Potassium Chloride (Potassium Chloride Crtab 20 Meq Tabcr) [facility]: 11/30/21 08:59 Last Admin: 10/31/21 08:07 Dose: 20 meq Prednisone (Prednisone 5 Mg Tab) 5 mg PO QAM [facility] Stop: 11/29/21 10:59 Last Admin: 10/31/21 08:06 Dose: 5 mg Sotalol HCl (Sotalol Hcl 80 Mg Tab) 80 mg PO BID [facility] Stop: 11/29/21 10:59 Last Admin: 10/31/21 08:06 Dose: 80 mg Warfarin Sodium (Warfarin Sod 2.5 Mg Tab) 2.5 mg PO DAILY@1600 [facility] Stop: 10/31/21 15:59 Last Admin: 10/30/21 20:08 Dose: 2.5 mg
[2021-11-01 07:55] LABS: Hematocrit (blood only) 40.5 % (34.1-44.9); Hemoglobin 12.8 g/dl (12.0-16.0); Mean Corpuscular Hemoglobin 30.2 pg (25.0-34.0); Mean Corpuscular Hgb Conc 31.6 g/dL (32.0-36.0); Mean Corpuscular Volume 95.5 fL (80.0-100.0); Mean Platelet Volume 11.5 fL (9.4-12.3); Platelet Count 310 K/uL (130-400); RDW Standard Deviation 51.7 fL (36.4-46.3); Red Blood Count 4.24 M/uL (3.93-5.22); White Blood Count 9.28 K/ul (4.8-10.8)
[2021-11-01 08:05] LABS: INR 3.4 (0.9-1.1); Prothrombin Time 33.8 Seconds (9.0-12.0)
[2021-11-01] MEDS: ASPIRIN 81 MG ECTAB PO SCH (08:12)
[2021-11-01] MEDS: FOLIC ACID 1 MG TAB PO SCH (08:12)
[2021-11-01] MEDS: SOTALOL HCL 80 MG TAB PO SCH ×2 (08:12→20:27)
[2021-11-01] MEDS: FUROSEMIDE 20 MG TAB PO SCH (08:12)
[2021-11-01] MEDS: predniSONE 5 MG TAB PO SCH (08:12)
[2021-11-01 08:20] LABS: BUN Creatinine Ratio 38.5 (10-20); Creatinine Clr Calc Pharmacy 62.6 ml/min; Est GFR (African American) 93.8 ml/min; Potassium 4.5 mmol/L (3.5-5.1)
--- NOTE | 2021-11-01 11:02 | Cardiology Progress Note ---
Date of Service November 01, 2021 Assessment & Plan (1) Persistent atrial fibrillation: (2) Congestive heart failure with left ventricular diastolic dysfunction: Plan I had a discussion with the patient today. Based on her echocardiogram with dilatation of both the left and right atrium and being asymptomatic in regard to her atrial fibrillation, I do not know that we can maintain rhythm control and at this point we should consider rate control only. She will have to remain anticoagulated indefinitely regardless. If she does not spontaneously convert back to normal sinus rhythm then we will consider stopping sotalol in the next 24 hours. She is agreeable to this plan. Admission and Anticipated Discharge Date Admission Date: October 30, 2021 Subjective The patient is sitting comfortably in a chair. She has no ongoing complaints and overall feels better. Review of Systems Review of Systems: Review of Systems: See HPI for pertinent positives. All other 10 point review of systems are negative. Physical Exam Physical Exam: General: no acute distress and stated age Head: normocephalic, no masses, lesions, tenderness or abnormalities Eyes: conjunctiva are pink and non-injected, sclera clear Neck: supple, no adenopathy, no bruits, normal jugular venous pulse, no hepatojugular reflux Chest: normal shape and normal respiratory effort Lungs: clear to auscultation and percussion Cardiac Exam: - regular rate & rhythm, no murmurs gallops or rubs - normal S1, normal S2 Pulses: 2(+) throughout Abdomen: abdomen soft, non-tender, no abnormal masses and no hepatosplenomegaly Musculoskeletal: no gait disturbance, no joint inflammation, no deforming arthritis Extremities: no edema and no cyanosis Neuro: grossly normal exam Results & Data ([facility]) Vital Signs (Past 12 Hours) Vital Signs Temp Pulse Resp BP Pulse Ox O2 Del Method O2 Flow Rate 11/01/21 07:16 36.4 C L 111 H 17 109/77 95 Nasal Cannula 2 11/01/21 03:35 36.6 C 91 H 14 99/75 L 98 Room Air Laboratory Results Laboratory Results - last 24 hr 11/01/21 11/01/21 11/01/21 07:05 07:05 07:05 WBC 9.28 RBC 4.24 Hgb 12.8 Hct 40.5 MCV 95.5 MCH 30.2 MCHC 31.6 L RDW Std Deviation 51.7 H RDW Coeff of Peter 15.0 H Plt Count 310 MPV 11.5 PT 33.8 H INR 3.4 H Sodium 139 Potassium 4.5 Chloride 100 Carbon Dioxide 34 H Anion Gap 5 BUN 25 H Creatinine 0.65 Est Cr Clr Drug Dosing 62.6 Est GFR ( Amer) 93.8 Est GFR (Non-Af Amer) 81.0 BUN/Creatinine Ratio 38.5 H Glucose 120 H Calcium 9.0 Medications Administered Current Inpatient Medications Acetaminophen (Acetaminophen 325 Mg Tab) 650 mg PO Q4H PRN PRN Reason: Pain or Fever Stop: 11/29/21 18:17 Aspirin (Aspirin 81 Mg Ectab) 81 mg PO [facility] Stop: 11/29/21 10:59 Last Admin: 11/01/21 08:12 Dose: 81 mg Folic Acid (Folic Acid 1 Mg Tab) [facility] [place] [facility] Stop: 11/29/21 09:59 Last Admin: 11/01/21 08:12 Dose: 1 mg Furosemide (Furosemide 20 Mg Tab) 20 mg PO [facility] Stop: 12/01/21 08:59 Last Admin: 11/01/21 08:12 Dose: 20 mg Polyethylene Glycol (Polyethylene (Miralax) 17 Gm Pack) 17 gm PO DAILY PRN PRN Reason: Constipation Stop: 11/29/21 18:17 Potassium Chloride (Potassium Chloride Crtab 20 Meq Tabcr) 20 meq PO [facility] Stop: 11/30/21 08:59 Last Admin: 10/31/21 08:07 Dose: 20 meq Prednisone (Prednisone 5 Mg Tab) [facility] [place] Stop: 11/29/21 10:59 Last Admin: 11/01/21 08:12 Dose: 5 mg Sotalol HCl (Sotalol Hcl 80 Mg Tab) 80 mg PO BID [facility] Stop: 11/29/21 10:59 Last Admin: 11/01/21 08:12 Dose: 80 mg
--- NOTE | 2021-11-01 17:40 | Hospitalist Progress Note ---
Date of Service November 01, 2021 Assessment & Plan (1) Atrial fibrillation with rapid ventricular response: Plan: Heart rate controlled Continue sotalol (2) Congestive heart failure with left ventricular diastolic dysfunction: Plan: chronic, not in exacerbation-examines as euvolemic. Lasix dose wass reduced to 20mg PO daily. 11/01: Appears euvolemic today Continue Lasix 20 g p.o. daily Monitor (3) Rheumatoid arthritis: Plan: chronic, stable. Cont MTX and daily prednisone. (4) H/O: stroke: Plan: heparin bridge was started with initial INR 1.9. 11/01: INR 3.4 Hold Coumadin Check INR tomorrow (5) Ambulatory dysfunction: Plan: PT and OT to assess. (6) DVT prophylaxis: Plan: INR 3.4, Coumadin on hold Full code Dispo- PT/OT in progress, patient prefers to to return home when medically cleared plan of care discussed with patient and her son Sotero at the bedside in detail and at length all questions answered they are understanding, agreeable, comfortable with the plan of care Admission and Anticipated Discharge Date Admission Date: October 30, 2021 Subjective Follow-up for A. fib RVR, etc. Seen resting in bed, sitting up, awake alert, oriented x3, answers all questions appropriately, in good spirits Patient is in general the bedside visiting States she feels fine overall no chest pain, dyspnea, palpitations, dizziness Ambulated in the hallways today with physical therapist, easily fatigued But no other symptoms Review of Systems Review of Systems: all noted and negative except for above Physical Exam Physical Exam: General- oriented x 3, not in distress, speaks in sentences with no effort or accessory muscle use Eyes- anicteric Neck- no JVD Lungs- clear breath sounds bilaterally, no rales/wheezes Heart- normal rate, irregularly irregular rhythm; no murmurs Abdomen- normal bowel sounds, nondistended, soft, nontender Extremities-no pretibial edema, no calf tenderness Neuro- alert, oriented x 3; no gross focal neurologic deficits Skin- warm & dry Results & Data Results & Data ([facility]) Vital Signs (Past 12 Hours) Vital Signs Temp Pulse Pulse Resp BP Pulse Ox O2 Del Method 11/01/21 15:16 36.8 C 108 H 18 105/72 91 Room Air 11/01/21 11:21 36.5 C 98 H 19 111/76 91 Room Air 11/01/21 10:55 102 H 11/01/21 07:16 36.4 C L 111 H 17 109/77 95 Nasal Cannula O2 Flow Rate 11/01/21 15:16 11/01/21 11:21 11/01/21 10:55 11/01/21 07:16 2 all noted and reviewed including below
--- NOTE | 2021-11-01 18:36 | Electrocardiogram Report ---
Test Reason : Blood Pressure : / mmHG Vent. Rate : 100 BPM Atrial Rate : 312 BPM P-R Int : 000 ms QRS Dur : 096 ms QT Int : 382 ms P-R-T Axes : 000 -35 -47 degrees QTc Int : 492 ms Atrial fibrillation Left axis deviation Possible Anterior infarct , age undetermined Nonspecific T wave abnormality Abnormal ECG When compared with ECG of 30-OCT-2021 06:40, Nonspecific T wave abnormality now evident in Anterior leads Confirmed by Golden Ramirez ([id number]) on 11/01/2021 6:36:10 PM Referred By: REFERRED SELF Confirmed By:Golden Ramirez
--- NOTE | 2021-11-02 05:35 | Electrocardiogram Report ---
Test Reason : Blood Pressure : / mmHG Vent. Rate : 113 BPM Atrial Rate : 125 BPM P-R Int : 000 ms QRS Dur : 092 ms QT Int : 282 ms P-R-T Axes : 000 -48 161 degrees QTc Int : 386 ms Atrial fibrillation with rapid ventricular response with premature ventricular or aberrantly conducte d complexes Left anterior fascicular block Cannot rule out Anterior infarct (cited on or before 31-OCT-2021) Nonspecific ST and T wave abnormality Abnormal ECG When compared with ECG of 31-OCT-2021 04:20, No significant change was found Confirmed by Golden Ramirez ([id number]) on 11/02/2021 5:34:27 AM Referred By: REFERRED SELF Confirmed By:Golden Ramirez
[2021-11-02] MEDS: ASPIRIN 81 MG ECTAB PO SCH (08:38)
[2021-11-02] MEDS: FUROSEMIDE 20 MG TAB PO SCH (08:38)
[2021-11-02] MEDS: FOLIC ACID 1 MG TAB PO SCH (08:38)
[2021-11-02] MEDS: SOTALOL HCL 80 MG TAB PO SCH (08:39)
[2021-11-02] MEDS: predniSONE 5 MG TAB PO SCH (08:39)
[2021-11-02 09:00] LABS: Basophils # (auto) 0.05 K/uL (0-0.2); Basophils % (auto) 0.5 %; Eosinophils # (auto) 0.06 K/uL (0-0.50); Eosinophils % (auto) 0.6 %; Hematocrit (blood only) 43.4 % (34.1-44.9); Hemoglobin 13.7 g/dl (12.0-16.0); Immature Granulocytes # (auto) 0.05 K/uL (0.00-0.02); Immature Granulocytes % (auto) 0.5 %; Lymphocytes % (auto) 9.9 %; Mean Corpuscular Hemoglobin 30.4 pg (25.0-34.0); Mean Corpuscular Hgb Conc 31.6 g/dL (32.0-36.0); Mean Corpuscular Volume 96.2 fL (80.0-100.0); Mean Platelet Volume 11.3 fL (9.4-12.3); Monocytes # (auto) 0.98 K/uL (0.24-0.82); Monocytes % (auto) 9.7 %; Neutrophils % (auto) 78.8 %; Platelet Count 321 K/uL (130-400); RDW Standard Deviation 52.5 fL (36.4-46.3); Red Blood Count 4.51 M/uL (3.93-5.22); White Blood Count 10.14 K/ul (4.8-10.8)
[2021-11-02 09:18] LABS: BUN Creatinine Ratio 41.7 (10-20); Calcium 9.5 mg/dl (8.5-10.1); Creatinine Clr Calc Pharmacy 56.6 ml/min; Est GFR (African American) 88.5 ml/min; Est GFR (Non-African American) 76.4 ml/min; Potassium 4.7 mmol/L (3.5-5.1)
[2021-11-02 09:19] LABS: INR 4.3 (0.9-1.1); Prothrombin Time 42.4 Seconds (9.0-12.0)
--- NOTE | 2021-11-02 10:22 | Cardiology Progress Note ---
Date of Service November 02, 2021 Assessment & Plan (1) Persistent atrial fibrillation: (2) Congestive heart failure with left ventricular diastolic dysfunction: Plan Patient with persistent afib, on chronic sotalol. Her rates have been variable ranging 90-110 at rest. she is not overtly symptomatic. Echo with preserved LVEF and moderately dilated left atrium. We discussed ongoing rate control vs rhythm control strategy with possible attempted DCCV. Patient is not overtly symptomatic and prefers ongoing rate control. Will stop sotalol 80 mg BID. She did receive morning dose earlier today. Tonight she will transition to metoprolol tartrate 50 mg BID. Will monitor on telemetry and titrate dose as needed for adequate HR control. Coumadin remains on hold due to elevated INR. She appears euvolemic at this time. Continue oral furosemide. Case to be discussed with Dr. Juarez. Admission and Anticipated Discharge Date Admission Date: October 30, 2021 Supervising Physician Co-Signing Physician Notes I have seen and examined the patient. I reviewed the medical record and discussed the case with Timbo. I agree with the plan as outlined. I think we should go with rate control and not rhythm control in this elderly woman. She is asymptomatic in regard to the arrhythmia and in the and I do not believe that we will maintain rhythm control even if we try to repeat a cardioversion. Long-term prognosis does not change. As discussed in my note yesterday patient is agreeable to this approach. Subjective Patient resting in chair quietly. Reports SOB improved from admission. Denies chest pain or sense of palpitations or tachypalpitations. No orthopnea, PND or edema. No dizziness. Unaware of persistent afib. Review of Systems Review of Systems: Review of Systems: See HPI for pertinent positives. All other 10 point review of systems are negative. Physical Exam Constitutional: WD/WN, vitals as above well nourished; no acute distress Respiratory: normal respiratory effort, lungs clear to auscultation Cardiovascular: Rate/Rhythm: + irregularly irregular Heart Sounds: no murmur Vessels: no JVD Extremities: no edema Gastrointestinal (Abdomen): normal bowel sounds, soft, nontender, no hepatosplenomegaly Neurologic: PERRL, EOMI, accommodation nl, no face palsy, no dysarthria Results & Data ([facility]) Vital Signs (Past 12 Hours) Vital Signs Temp Pulse Pulse Pulse Resp BP Pulse Ox 08/01/22 08:41 106 H 144/82 H 11/02/21 07:00 11/02/21 06:43 36.4 C L 106 H 18 133/76 91 11/02/21 03:07 36.8 C 98 H 19 127/67 98 11/01/21 22:54 93 H 11/01/21 22:39 36.6 C 98 H 18 138/77 98 O2 Del Method O2 Flow Rate 11/02/21 08:41 11/02/21 07:00 Nasal Cannula 2 11/02/21 06:43 Nasal Cannula 2 11/02/21 03:07 Nasal Cannula 2 11/01/21 22:54 11/01/21 22:39 Nasal Cannula 2 Laboratory Results Coagulation 11/02/21 Range/Units 08:45 PT 42.4 H (9.0-12.0) Seconds CBC 11/02/21 Range/Units 08:45 WBC 10.14 (4.8-10.8) K/ul RBC 4.51 (3.93-5.22) M/uL Hgb 13.7 (12.0-16.0) g/dl Hct 43.4 (34.1-44.9) % Plt Count 321 (130-400) K/uL Neut # (Auto) 8.00 H (1.4-6.5) K/uL Lymph # (Auto) 1.00 L (1.2-3.4) K/uL [place] # (Auto) 0.98 H (0.24-0.82) K/uL Eos # (Auto) 0.06 (0-0.50) K/uL Baso # (Auto) 0.05 (0-0.2) K/uL Comprehensive Metabolic Panel 11/02/21 Range/Units 08:45 Sodium 136 (136-145) mmol/L Potassium 4.7 (3.5-5.1) mmol/L Chloride 98 (98-107) mmol/L Carbon Dioxide 31 (21-32) mmol/L BUN 30 H (6-23) mg/dl Creatinine 0.72 (0.6-1.2) mg/dl Glucose 130 H (70-99(Fasting)) mg/dl Calcium 9.5 (8.5-10.1) mg/dl Intake and Output 11/01/21 11/02/21 11/02/21 22:59 06:59 14:59 Intake Total 510 / 510 Output Total 101 / 101 Balance 409 / 409 Intake: Oral 510 / 510 Output: Urine 100 / 100 # Bowel Movements Other: # Unmeasured Voids 2 Weight 78.2 kg Weight Measurement Method Built in [facility] Diagnostic Findings Telemetry reviewed: Persistent atrial fibrillation, rates ranging 90-110 bpm. Echo results reviewed from October 31, 2021: Afib during study Moderate concentric LVH LV cavity is small EF > 70% RV systolic function is normal. LA and RA are moderately dilated Aortic valve scerlosis moderate without significant aortic valvular stenosis. Mild MR. Moderate TR Medications Administered Current Inpatient Medications Acetaminophen (Acetaminophen 325 Mg Tab) 650 mg PO Q4H PRN PRN Reason: Pain or Fever Stop: 11/29/21 18:17 Aspirin (A[facility]in 81 Mg Ectab) [facility] [place] 11/29/21 10:59 Last Admin: 11/02/21 08:38 Dose: 81 mg Folic Acid (Folic Acid 1 Mg Tab) 1 [facility] [place]: 11/29/21 09:59 Last Admin: 11/02/21 08:38 Dose: 1 mg Furosemide (Furosemide 20 Mg Tab) 20 mg PO QAM [facility] Stop: 12/01/21 08:59 Last Admin: 11/02/21 08:38 Dose: 20 mg Metoprolol Tartrate (Metoprolol Tartrate 50 Mg Tab) 50 mg PO BID [facility] Stop: 12/02/21 20:59 Polyethylene Glycol (Polyethylene (Miralax) 17 Gm Pack) 17 gm PO DAILY PRN PRN Reason: Constipation Stop: 11/29/21 18:17 Potassium Chloride (Potassium Chloride Crtab 20 Meq Tabcr) 20 meq [facility] [place]: 11/30/21 08:59 Last Admin: 10/31/21 08:07 Dose: 20 meq Prednisone (Prednisone 5 Mg Tab) 5 mg PO QAM [facility] Stop: 11/29/21 10:59 Last Admin: 11/02/21 08:39 Dose: 5 mg
--- NOTE | 2021-11-02 14:25 | Hospitalist Progress Note ---
Date of Service November 02, 2021 Assessment & Plan (1) Atrial fibrillation with rapid ventricular response: Plan: still in A fib, rate controlled per Cardiology, d/c Sotalol increase Metoprolol tartrate to 50 mg BID monitor closely (2) Congestive heart failure with left ventricular diastolic dysfunction: Plan: chronic, not in exacerbation-examines as euvolemic. Lasix dose wass reduced to 20mg PO daily. 11/02: Appears euvolemic today Continue Lasix 20 g p.o. daily Monitor (3) Rheumatoid arthritis: Plan: chronic, stable. Cont MTX weekly and daily prednisone. (4) H/O: stroke: Plan: heparin bridge was started with initial INR 1.9. 11/02: was bridged with heparin INR 3.4--> 4.3 Hold Coumadin Check INR tomorrow (5) Ambulatory dysfunction: Plan: PT and OT: recommend return jan (6) DVT prophylaxis: Plan: INR 4.3, Coumadin on hold Full code Dispo- PT/OT recommend return home when medically stable will benefit from home health services Admission and Anticipated Discharge Date Admission Date: October 30, 2021 Subjective ff up for A fib, etc seen resting in bed, comfortable on 2 L NC states she feels fine overall no chest pain, dyspnea, palpitations, dizziness ambulates to the bathroom with no problems no other symptoms Review of Systems Review of Systems: all noted and negative except for above Physical Exam Physical Exam: General- oriented x 3, not in distress, speaks in sentences with no effort or accessory muscle use Eyes- anicteric Neck- no JVD Lungs- clear breath sounds bilaterally, no rales/wheezes Heart- normal rate,irregularly irregular rhythm; no murmurs Abdomen- normal bowel sounds, nondistended, soft, nontender Extremities- no pretibial edema, no calf tenderness Neuro- alert, oriented x 3; no gross focal neurologic deficits Skin- warm & dry Results & Data Results & Data ([facility]) Vital Signs (Past 12 Hours) Vital Signs Temp Pulse Pulse Resp BP Pulse Ox O2 Del Method 11/02/21 11:52 Nasal Cannula 11/02/21 10:41 36.3 C L 108 H 17 119/83 98 Nasal Cannula 11/02/21 08:41 106 H 144/82 H 11/02/21 07:00 Nasal Cannula 11/02/21 06:43 36.4 C L 106 H 18 133/76 91 Nasal Cannula 11/02/21 03:07 36.8 C 98 H 19 127/67 98 Nasal Cannula O2 Flow Rate 11/02/21 11:52 2 11/02/21 10:41 2 11/02/21 08:41 11/02/21 07:00 2 11/02/21 06:43 2 11/02/21 03:07 2 all noted and reviewed including below
[2021-11-02] MEDS: METOPROLOL TARTRATE 50 MG TAB PO SCH (20:00)
[2021-11-03 06:03] LABS: Basophils # (auto) 0.04 K/uL (0-0.2); Basophils % (auto) 0.4 %; Eosinophils # (auto) 0.02 K/uL (0-0.50); Eosinophils % (auto) 0.2 %; Hematocrit (blood only) 41.9 % (34.1-44.9); Hemoglobin 13.1 g/dl (12.0-16.0); Immature Granulocytes # (auto) 0.04 K/uL (0.00-0.02); Immature Granulocytes % (auto) 0.4 %; Lymphocytes # (auto) 0.77 K/uL (1.2-3.4); Lymphocytes % (auto) 7.2 %; Mean Corpuscular Hemoglobin 29.8 pg (25.0-34.0); Mean Corpuscular Hgb Conc 31.3 g/dL (32.0-36.0); Mean Corpuscular Volume 95.4 fL (80.0-100.0); Mean Platelet Volume 11.5 fL (9.4-12.3); Monocytes # (auto) 1.25 K/uL (0.24-0.82); Monocytes % (auto) 11.7 %; Neutrophils # (auto) 8.58 K/uL (1.4-6.5); Neutrophils % (auto) 80.1 %; Platelet Count 326 K/uL (130-400); RDW Coefficient of Variation 14.9 % (11.5-14.5); RDW Standard Deviation 52.2 fL (36.4-46.3); Red Blood Count 4.39 M/uL (3.93-5.22)
[2021-11-03 06:20] LABS: BUN Creatinine Ratio 41.4 (10-20); Calcium 9.3 mg/dl (8.5-10.1); Creatinine Clr Calc Pharmacy 46.8 ml/min; Est GFR (African American) 70.4 ml/min; Est GFR (Non-African American) 60.7 ml/min; Potassium 4.8 mmol/L (3.5-5.1)
[2021-11-03 06:22] LABS: INR 3.9 (0.9-1.1); Prothrombin Time 38.3 Seconds (9.0-12.0)
[2021-11-03] MEDS: ASPIRIN 81 MG ECTAB PO SCH (09:44)
[2021-11-03] MEDS: FUROSEMIDE 20 MG TAB PO SCH (09:44)
[2021-11-03] MEDS: FOLIC ACID 1 MG TAB PO SCH (09:45)
[2021-11-03] MEDS: predniSONE 5 MG TAB PO SCH (09:45)
[2021-11-03] MEDS: METOPROLOL TARTRATE 25 MG TAB PO SCH ×2 (10:40→21:05)
--- NOTE | 2021-11-03 10:40 | Cardiology Progress Note ---
Date of Service November 03, 2021 Assessment & Plan (1) Persistent atrial fibrillation: (2) Congestive heart failure with left ventricular diastolic dysfunction: Plan Patient with persistent afib, on chronic sotalol. Her rates have been variable ranging 90-110 at rest. she is not overtly symptomatic. Echo with preserved LVEF and moderately dilated left atrium. We discussed ongoing rate control vs rhythm control strategy with possible attempted DCCV. Patient is not overtly symptomatic and prefers ongoing rate control. I agree it would be difficult to maintain NSR at this time as well. Sotalol discontinued in favor of metoprolol tartrate 50 mg BID. Rates remain borderline elevated, so will increase dose to 75 mg BID. Coumadin remains on hold due to elevated INR. She appears euvolemic at this time. Continue oral furosemide. Improved symptoms since admission. consider PT/OT prior to discharge. Case to be discussed with Dr. Juarez. Admission and Anticipated Discharge Date Admission Date: October 30, 2021 Supervising Physician Co-Signing Physician Notes I have discussed the case with Ms. Izquierdo. I have reviewed the medical record and evaluated the patient myself. I think rate control is the best option. I agree with increasing the patient's metoprolol for better rate control. No additional cardiac testing is indicated at this time. Subjective Patient resting in bed comfortably. Mild dyspnea noted since returning from restroom. Remains in afib rates ranging 90-110. No chest pain. Oxygen saturations improved from admission. Denies orthopnea, PND or edema. Review of Systems Review of Systems: All systems reviewed & are unremarkable except as noted in HPI & below Physical Exam Constitutional: WD/WN, vitals as above well nourished; no acute distress Respiratory: normal respiratory effort, lungs clear to auscultation Cardiovascular: Rate/Rhythm: + irregularly irregular Heart Sounds: no murmur Vessels: no JVD Extremities: no edema Gastrointestinal (Abdomen): normal bowel sounds, soft, nontender, no hepatosplenomegaly Neurologic: PERRL, EOMI, accommodation nl, no face palsy, no dysarthria Results & Data ([facility]) Vital Signs (Past 12 Hours) Vital Signs Temp Pulse Pulse Resp BP Pulse Ox O2 Del Method 11/03/21 09:00 119 H 11/03/21 08:26 36.4 C L 115 H 18 108/64 99 Nasal Cannula 11/03/21 03:30 36.3 C L 110 H 18 132/78 96 Room Air 11/02/21 23:25 36.8 C 100 H 18 111/64 96 Nasal Cannula O2 Flow Rate 11/03/21 09:00 11/03/21 08:26 11/03/21 03:30 11/02/21 23:25 2 Laboratory Results Coagulation 11/03/21 Range/Units 05:21 PT 38.3 H (9.0-12.0) Seconds CBC 11/03/21 Range/Units 05:21 WBC 10.70 (4.8-10.8) K/ul RBC 4.39 (3.93-5.22) M/uL Hgb 13.1 (12.0-16.0) g/dl Hct 41.9 (34.1-44.9) % Plt Count 326 (130-400) K/uL Neut # (Auto) 8.58 H (1.4-6.5) K/uL Lymph # (Auto) 0.77 L (1.2-3.4) K/uL [place] # (Auto) 1.25 H (0.24-0.82) K/uL Eos # (Auto) 0.02 (0-0.50) K/uL Baso # (Auto) 0.04 (0-0.2) K/uL Comprehensive Metabolic Panel 11/03/21 Range/Units 05:21 Sodium 137 (136-145) mmol/L Potassium 4.8 (3.5-5.1) mmol/L Chloride 99 (98-107) mmol/L Carbon Dioxide 31 (21-32) mmol/L BUN 36 H (6-23) mg/dl Creatinine 0.87 (0.6-1.2) mg/dl Glucose 121 H (70-99(Fasting)) mg/dl Calcium 9.3 (8.5-10.1) mg/dl Intake and Output 11/02/21 11/03/21 11/03/21 22:59 06:59 14:59 Other: # Unmeasured Voids 1 Weight 76.8 kg Weight Measurement Method Standing Scale Diagnostic Findings Telemetry reviewed: Persistent afib, rates ranging 90-110 bpm Medications Administered Current Inpatient Medications Acetaminophen (Acetaminophen 325 Mg Tab) 650 mg PO Q4H PRN PRN Reason: Pain or Fever Stop: 11/29/21 18:17 Aspirin (Aspirin 81 Mg Ectab) 81 mg PO [facility] Stop: 11/29/21 10:59 Last Admin: 11/03/21 09:44 Dose: 81 mg Folic Acid (Folic Acid 1 Mg Tab) 1 mg PO [facility] Stop: 11/29/21 09:59 Last Admin: 11/03/21 09:45 Dose: 1 mg Furosemide (Furosemide 20 Mg Tab) 20 mg PO [facility] Stop: 12/01/21 08:59 Last Admin: 11/03/21 09:44 Dose: 20 mg Metoprolol Tartrate (Metoprolol Tartrate 25 Mg Tab) 75 mg PO BID [facility] Stop: 12/03/21 09:14 Polyethylene Glycol (Polyethylene (Miralax) 17 Gm Pack) 17 gm PO DAILY PRN PRN Reason: Constipation Stop: 11/29/21 18:17 Potassium Chloride (Potassium Chloride Crtab 20 Meq Tabcr) 20 meq PO [facility] Stop: 11/30/21 08:59 Last Admin: 10/31/21 08:07 Dose: 20 meq Prednisone (Prednisone 5 Mg Tab) 5 mg PO [facility] Stop: 11/29/21 10:59 Last Admin: 11/03/21 09:45 Dose: 5 mg
--- NOTE | 2021-11-03 16:18 | Hospitalist Progress Note ---
Date of Service November 03, 2021 Assessment & Plan (1) Atrial fibrillation with rapid ventricular response: Plan: Remains seen A fib, rate controlled Appreciate cardiology input and recommendation Sotalol has been discontinued and metoprolol titrated to 50 mg twice daily Remains medically stable and is not overtly symptomatic Plan of possible attempted DCCV is not an action right now Metoprolol dose has been increased to 75 mg twice daily (2) Congestive heart failure with left ventricular diastolic dysfunction: Plan: Chronic, not in exacerbation-examines as euvolemic. Lasix dose was reduced to 20mg PO daily. No signs and or symptoms of fluid overload Cumulative fluid balance is 33 mm Continue Lasix 20 mg a day (3) Rheumatoid arthritis: Plan: Chronic, stable. Cont MTX weekly and daily prednisone. (4) H/O: stroke: Plan: Heparin bridge was started with initial INR 1.9. INR was therapeutic and heparin has been discontinued subsequently INR remains at 3.9 as of 11/03/2021-Coumadin is on hold (5) Ambulatory dysfunction: Plan: PT and OT: recommend return jan Likely discharge tomorrow (6) DVT prophylaxis: Plan: INR 4.3, Coumadin on hold Full code Dispo- PT/OT recommend return home when medically stable Family members wants her to be placed Admission and Anticipated Discharge Date Admission Date: October 30, 2021 Subjective 11/03/2021 The patient was seen and examined in telemetry unit She has been feeling much better and complains to have generalized weakness Denies any chest pain, palpitation or shortness of breath at rest Review of Systems Review of Systems: All systems reviewed and are unremarkable except as noted below Physical Exam Physical Exam: Lying in bed comfortably Constitutional: well developed, well nourished, + ill appearing and average body habitus Eyes: PERRL, conjunctivae normal, anicteric sclerae ENMT: external ear and nose normal, oropharynx normal Neck: trachea midline, no thyromegaly Respiratory: no respiratory distress Auscultation: + diminished lung sounds and + crackles (Bibasilar crackles) Cardiovascular: Rate/Rhythm: + tachycardic; not irregularly irregular Heart Sounds: normal S1 and normal S2; no murmur Extremities: + edema (1+ edema bilaterally) Gastrointestinal (Abdomen): Inspection/Auscultation: normal bowel sounds; abdomen not distended Percussion/Palpation: abdomen soft; abdomen nontender Musculoskeletal: No acute arthritis in any joint Neurologic: Alert, awake and oriented x3. Generally weak but no focal sensory or no motor deficit appreciated Lymphatic: no cervical or axillary lymphadenopathy Results & Data Results & Data ([facility]) Vital Signs (Past 12 Hours) Vital Signs Temp Pulse Pulse Resp BP Pulse Ox O2 Del Method 11/03/21 11:22 36.6 C 101 H 18 107/76 99 Nasal Cannula 11/03/21 09:00 119 H 11/03/21 08:26 36.4 C L 115 H 18 108/64 99 Nasal Cannula O2 Flow Rate 11/03/21 11:22 2 11/03/21 09:00 11/03/21 08:26 Laboratory Results Short CBC 11/03/21 Range/Units 05:21 WBC 10.70 (4.8-10.8) K/ul Hgb 13.1 (12.0-16.0) g/dl Hct 41.9 (34.1-44.9) % Plt Count 326 (130-400) K/uL [facility] 11/03/21 05:21 Sodium 137 Potassium 4.8 Chloride 99 Carbon Dioxide 31 BUN 36 H Creatinine 0.87 Glucose 121 H Calcium 9.3 Medications Administered Current Inpatient Medications Acetaminophen (Acetaminophen 325 Mg Tab) 650 mg PO Q4H PRN PRN Reason: Pain or Fever Stop: 11/29/21 18:17 Aspirin (Aspirin 81 Mg Ectab) [facility] [place] Stop: 11/29/21 10:59 Last Admin: 11/03/21 09:44 Dose: 81 mg Folic Acid (Folic Acid 1 Mg Tab) [address] [facility] Stop: 11/29/21 09:59 Last Admin: 11/03/21 09:45 Dose: 1 mg Furosemide (Furosemide 20 Mg Tab) [address] [facility] Stop: 12/01/21 08:59 Last Admin: 11/03/21 09:44 Dose: 20 mg Metoprolol Tartrate (Metoprolol Tartrate 25 Mg Tab) [address] [facility] Stop: 12/03/21 09:14 Last Admin: 11/03/21 10:40 Dose: 75 mg Polyethylene Glycol (Polyethylene (Miralax) 17 Gm Pack) 17 gm PO DAILY PRN PRN Reason: Constipation Stop: 11/29/21 18:17 Potassium Chloride (Potassium Chloride Crtab 20 Meq Tabcr) [address] [facility] Stop: 11/30/21 08:59 Last Admin: 10/31/21 08:07 Dose: 20 meq Prednisone (Prednisone 5 Mg Tab) [address] [facility] Stop: 11/29/21 10:59 Last Admin: 11/03/21 09:45 Dose: 5 mg
[2021-11-03] MEDS: METOPROLOL TARTRATE 50 MG TAB PO SCH (21:22)
[2021-11-03] MEDS ORDERED: LEVALBUTEROL HCL 0.63 MG/3 ML NEB NEB STA (23:23)
[2021-11-03] MEDS ORDERED: LEVALBUTEROL 1.25MG/0.5ML NEB ONE (23:31)
--- NOTE | 2021-11-04 06:42 | XRay Report ---
XR chest 1V portable HISTORY: 86 years-old Female sob acute shortness of breath COMPARISON: Chest radiograph 10/30/2021, CTA chest 03/07/2017 TECHNIQUE: Portable AP view of the chest FINDINGS: The cardiac silhouette is enlarged. No pneumothorax. Left greater than right layering pleural effusio ns with persistent left basilar predominant consolidation. No overt pulmonary edema. Degenerative honorio nges of the shoulders and spine. Right shoulder rotator cuff calcific tendinosis. IMPRESSION: 1. Cardiomegaly without pulmonary edema. 2. Left greater than right pleural effusions with bibasilar opacities redemonstrated. ACT 112: Negative or not required by law. The above report was generated using voice recognition software. It may contain grammatical, syntax o r spelling errors. Electronically signed by: Luis Eduardo Almanzar M.D. 11/04/2021 6:41 AM
[2021-11-04] MEDS: ASPIRIN 81 MG ECTAB PO SCH (08:09)
[2021-11-04] MEDS: predniSONE 5 MG TAB PO SCH (08:10)
[2021-11-04] MEDS: FOLIC ACID 1 MG TAB PO SCH (08:10)
[2021-11-04] MEDS: FUROSEMIDE 20 MG TAB PO SCH (08:10)
[2021-11-04 08:13] LABS: INR 4.5 (0.9-1.1)
[2021-11-04] MEDS: METOPROLOL TARTRATE 25 MG TAB PO SCH (08:23)
[2021-11-04 08:24] LABS: BUN Creatinine Ratio 37.3 (10-20); Calcium 9.9 mg/dl (8.5-10.1); Creatinine Clr Calc Pharmacy 32.5 ml/min; Est GFR (Non-African American) 38.8 ml/min; Magnesium 1.9 mg/dl (1.7-2.4); Potassium 5.3 mmol/L (3.5-5.1)
[2021-11-04] MEDS ORDERED: FUROSEMIDE INJ 20 MG/2 ML VIAL IV ONE (10:00)
--- NOTE | 2021-11-04 10:26 | Cardiology Progress Note ---
Date of Service November 04, 2021 Assessment & Plan (1) Persistent atrial fibrillation: (2) Congestive heart failure with left ventricular diastolic dysfunction: Plan Patient with persistent afib, previously on sotalol. She was asymptomatic with recurrent afib, so ongoing rate control strategy was preferred. Echo with preserved LVEF and moderately dilated left atrium. She was transitioned from sotalol to oral metoprolol and dose titrated to 75 mg BID yesterday with improved rates. Unfortunately overnight patient became more SOB, with b/l pleural effusions and requiring higher supplemental O2. She already received furosemide 20 mg oral this morning (home dose). Givne her current respiratory status will also give furosemide 20 mg IV x 1 dose now. Monitor I+O's Fluid restriction of about 1500 ml recommended. Coumadin remains on hold due to elevated INR. Case to be discussed with Dr. Juarez. Admission and Anticipated Discharge Date Admission Date: October 30, 2021 Supervising Physician Co-Signing Physician Notes I have reviewed the medical record and discussed the case with Timbo. I have seen and examined the patient. She is a bit more lethargic this morning. She is satting well on 4 L nasal cannula. Not given any sedation through the night. According to nursing, she is not taking in much fluids or eating much. Given additional Lasix this morning. We will follow for now. Subjective Patient with increased SOB and requiring higher oxygen supplementation since evaluation yesterday. Chest xray yesterday with b/l pleural effusions. Now requiring 4 L O2. Less alert and oriented this morning. Does answer yes or no questions, but not as conversant. Reports she has worsening SOB. No chest pain. Heart rates have improved with titration of metoprolol. No edema. She reports worsening cough. INR remains supratherapeutic. Review of Systems Review of Systems: Review of Systems: See HPI for pertinent positives. All other 10 point review of systems are negative. Physical Exam Constitutional: WD/WN, vitals as above + ill appearing Respiratory: + labored breathing and + cough Auscultation: + diminished lung sounds (at bases) and + crackles (diffuse b/l) Cardiovascular: Rate/Rhythm: + irregularly irregular Heart Sounds: no murmur Vessels: no JVD Extremities: no edema Gastrointestinal (Abdomen): normal bowel sounds, soft, nontender, no hepatosplenomegaly Neurologic: PERRL, EOMI, accommodation nl, no face palsy, no dysarthria Psychiatric: A+Ox3, euthymic affect Results & Data ([facility]) Vital Signs (Past 12 Hours) Vital Signs Temp Pulse Pulse Resp BP Pulse Ox O2 Del Method 11/04/21 08:24 110 H 20 121/95 95 Nasal Cannula 11/04/21 07:10 37.0 C 102 H 18 81/67 L 92 Nasal Cannula 11/04/21 04:11 37.6 C H 11/04/21 03:41 94 H 16 109/77 95 Nasal Cannula 11/03/21 23:46 94 H 95 Nasal Cannula 11/03/21 23:22 90 Oxymask 11/03/21 23:10 91 Nasal Cannula 11/03/21 22:50 36.2 C L 113 H 26 H 103/74 87 L Nasal Cannula O2 Flow Rate 11/04/21 08:24 4 11/04/21 07:10 11/04/21 04:11 11/04/21 03:41 4 11/03/21 23:46 4 11/03/21 23:22 4 11/03/21 23:10 2 11/03/21 22:50 2 Laboratory Results Coagulation 11/04/21 Range/Units 07:11 PT 44.0 H (9.0-12.0) Seconds Comprehensive Metabolic Panel 11/04/21 Range/Units 07:11 Sodium 137 (136-145) mmol/L Potassium 5.3 H (3.5-5.1) mmol/L Chloride 97 L (98-107) mmol/L Carbon Dioxide 33 H (21-32) mmol/L BUN 47 H (6-23) mg/dl Creatinine 1.26 H D (0.6-1.2) mg/dl Glucose 130 H (70-99(Fasting)) mg/dl Calcium 9.9 (8.5-10.1) mg/dl Intake and Output 11/03/21 11/04/21 11/04/21 22:59 06:59 14:59 Other: Other Intake Source sips # Unmeasured Voids 1 1 Weight 79 kg Weight Measurement Method Built [facility] Diagnostic Findings Telemetry reviewed: Afib, heart rates ranging 90-100 bpm Laboratory Results WBC 10.70 K/ul (4.8-10.8) 11/03/21 05:21 RBC 4.39 M/uL (3.93-5.22) 11/03/21 05:21 Hgb 13.1 g/dl (12.0-16.0) 11/03/21 05:21 Hct 41.9 % (34.1-44.9) 11/03/21 05:21 MCV 95.4 fL (80.0-100.0) 11/03/21 05:21 MCH 29.8 pg (25.0-34.0) 11/03/21 05:21 MCHC 31.3 g/dL (32.0-36.0) L 11/03/21 05:21 RDW Std Deviation 52.2 fL (36.4-46.3) H 11/03/21 05:21 RDW Coeff of Peter 14.9 % (11.5-14.5) H 11/03/21 05:21 Plt Count 326 K/uL (130-400) 11/03/21 05:21 MPV 11.5 fL (9.4-12.3) 11/03/21 05:21 Immature Gran % (Auto) 0.4 % 11/03/21 05:21 Neut % (Auto) 80.1 % 11/03/21 05:21 Lymph % (Auto) 7.2 % 11/03/21 05:21 [place] % (Auto) 11.7 % 11/03/21 05:21 Eos % (Auto) 0.2 % 11/03/21 05:21 Baso % (Auto) 0.4 % 11/03/21 05:21 Neut # (Auto) 8.58 K/uL (1.4-6.5) H 11/03/21 05:21 Lymph # (Auto) 0.77 K/uL (1.2-3.4) L 11/03/21 05:21 [place] # (Auto) 1.25 K/uL (0.24-0.82) H 11/03/21 05:21 Eos # (Auto) 0.02 K/uL (0-0.50) 11/03/21 05:21 Baso # (Auto) 0.04 K/uL (0-0.2) 11/03/21 05:21 Immature Gran # (Auto) 0.04 K/uL (0.00-0.02) H 11/03/21 05:21 PT 44.0 Seconds (9.0-12.0) H 11/04/21 07:11 INR 4.5 (0.9-1.1) H 11/04/21 07:11 APTT 62.6 Seconds (21.0-31.0) H* 10/31/21 06:31 PTT Ratio 2.3 10/31/21 06:31 Sodium 137 mmol/L (136-145) 11/04/21 07:11 Potassium 5.3 mmol/L (3.5-5.1) H 11/04/21 07:11 Chloride 97 mmol/L (98-107) L 11/04/21 07:11 Carbon Dioxide 33 mmol/L (21-32) H 11/04/21 07:11 Anion Gap 7 (3-11) 11/04/21 07:11 BUN 47 mg/dl (6-23) H 11/04/21 07:11 Creatinine 1.26 mg/dl (0.6-1.2) H D 11/04/21 07:11 Est Cr Clr Drug Dosing 32.5 ml/min 11/04/21 07:11 Est GFR ( Amer) 45.0 ml/min 11/04/21 07:11 Est GFR (Non-Af Amer) 38.8 ml/min 11/04/21 07:11 BUN/Creatinine Ratio 37.3 (10-20) H 11/04/21 07:11 Glucose 130 mg/dl (70-99(Fasting)) H 11/04/21 07:11 Calcium 9.9 mg/dl (8.5-10.1) 11/04/21 07:11 Magnesium 1.9 mg/dl (1.7-2.4) 11/04/21 07:11 Total Bilirubin 0.6 mg/dl (0.2-1.0) 10/31/21 06:31 AST 16 U/L (13-39) 10/31/21 06:31 ALT 14 U/L (7-52) 10/31/21 06:31 Alkaline Phosphatase 57 U/L (34-104) 10/31/21 06:31 Troponin I High Sens 13.5 pg/ml (0-14) 10/30/21 07:15 B-Natriuretic Peptide 715 pg/ml (0-100) H 10/30/21 10:13 Total Protein 6.1 gm/dl (6.0-8.3) 10/31/21 06:31 Albumin 3.2 gm/dl (3.4-5.0) L 10/31/21 06:31 Globulin 2.9 gm/dl (2.5-4.0) 10/31/21 06:31 Albumin/Globulin Ratio 1.1 (0.9-2) 10/31/21 06:31 TSH 2.960 uIu/ml (0.300-4.500) 10/30/21 07:15 Urine Color Yellow 10/30/21 11:00 Urine Appearance Clear (Clear) 10/30/21 11:00 Urine pH 5.5 (4.5-7.5) 10/30/21 11:00 Ur Specific [place] 1.015 (1.000-1.030) 10/30/21 11:00 Urine Protein 1+ (Negative) H 10/30/21 11:00 Urine Glucose (UA) Negative (Negative) 10/30/21 11:00 Urine Ketones Trace (Negative) H 10/30/21 11:00 Urine Blood Negative (Negative) 10/30/21 11:00 Urine Nitrite Negative (Negative) 10/30/21 11:00 Urine Bilirubin Negative (Negative) 10/30/21 11:00 Urine Urobilinogen Negative (Negative) 10/30/21 11:00 Ur Leukocyte Esterase 1+ (Negative) H 10/30/21 11:00 Urine WBC (Auto) 5-10 /hpf (0-5) H 10/30/21 11:00 Urine RBC (Auto) 0-4 /hpf (0-4) 10/30/21 11:00 U Hyaline Cast (Auto) 0 /lpf (0-5) 10/30/21 11:00 U Epithel Cells (Auto) 20-30 /lpf (0-5) H 10/30/21 11:00 Urine Bacteria (Auto) Negative (Negative) 10/30/21 11:00 SARS-CoV-2, RNA, NAAT NEGATIVE (NEGATIVE) 10/30/21 07:15 Impressions Chest X-Ray 11/03/21 23:23 XR chest 1V portable HISTORY: 86 years-old Female sob acute shortness of breath COMPARISON: Chest radiograph 10/30/2021, CTA chest 03/07/2017 TECHNIQUE: Portable AP view of the chest FINDINGS: The cardiac silhouette is enlarged. No pneumothorax. Left greater than right layering pleural effusions with persistent left basilar predominant consolidation. No overt pulmonary edema. Degenerative changes of the shoulders and spine. Right shoulder rotator cuff calcific tendinosis. IMPRESSION: 1. Cardiomegaly without pulmonary edema. 2. Left greater than right pleural effusions with bibasilar opacities redemonstrated. ACT 112: Negative or not required by law. The above report was generated using voice recognition software. It may contain grammatical, syntax or spelling errors. Electronically signed by: Luis Eduardo Almanzar M.D. 11/04/2021 6:41 AM Medications Administered Current Inpatient Medications Acetaminophen (Acetaminophen 325 Mg Tab) 650 mg PO Q4H PRN PRN Reason: Pain or Fever Stop: 11/29/21 18:17 Aspirin (Aspirin 81 Mg Ectab) 81 mg PO [facility] Stop: 11/29/21 10:59 Last Admin: 11/04/21 08:09 Dose: 81 mg Folic Acid (Folic Acid 1 Mg Tab) 1 mg PO [facility] Stop: 11/29/21 09:59 Last Admin: 11/04/21 08:10 Dose: 1 mg Furosemide (Furosemide 20 Mg Tab) 20 mg PO [facility] Stop: 12/01/21 08:59 Last Admin: 11/04/21 08:10 Dose: 20 mg Metoprolol Tartrate (Metoprolol Tartrate 25 Mg Tab) 75 mg PO BID [facility] Stop: 12/03/21 09:14 Last Admin: 11/04/21 08:23 Dose: 75 mg Polyethylene Glycol (Polyethylene (Miralax) 17 Gm Pack) 17 gm PO DAILY PRN PRN Reason: Constipation Stop: 11/29/21 18:17 Potassium Chloride (Potassium Chloride Crtab 20 Meq Tabcr) 20 meq PO [facility] Stop: 11/30/21 08:59 Last Admin: 10/31/21 08:07 Dose: 20 meq Prednisone (Prednisone 5 Mg Tab) 5 mg PO [facility] Stop: 11/29/21 10:59 Last Admin: 11/04/21 08:10 Dose: 5 mg
[2021-11-04] MEDS ORDERED: SODIUM CHLORIDE 0.9% 500 ML IV ONE (13:27)
[2021-11-04 13:38] LABS: iSTAT Allen Test Pass; iSTAT Art Bld Gas pCO2 Correct 82 mmHg (35-46); iSTAT Art Bld Gas pH Corrected 7.209 (7.35-7.45); iSTAT Arterial Blood Gas HCO3 33 meg/L (19-24); iSTAT Arterial Blood Gas pCO2 81 mmHg (35-46); iSTAT Arterial Blood Gas pH 7.21 (7.35-7.45); iSTAT Arterial Blood Gas pO2 67 mmHg (80-95); iSTAT Arterial Blood Gas pO2 C 68; iSTAT Carbon Dioxide 35 mmol/L (24-31); iSTAT Hematocrit 45 % (37-47); iSTAT Hemoglobin 15.3 g/dl (12.0-16.0); iSTAT Potassium 5.9 mmol/L (3.3-5.0); iSTAT Site R Radial; iSTAT Sodium 135 mmol/L (135-144)
--- NOTE | 2021-11-04 14:05 | XRay Report ---
XR chest 1V portable HISTORY: 86 years-old Female CHF acute shortness breath with congestive heart failure COMPARISON: Chest radiograph 11/03/2021 TECHNIQUE: Portable AP view of the chest FINDINGS: Cardiac silhouette is enlarged. Pulmonary vascular congestion. No pneumothorax. Small left and trace right pleural effusions with bibasilar consolidation. There is mildly improved aeration of the lung b ases. Degenerative changes of the shoulders and spine. Bilateral rotator cuff calcific tendinosis. IMPRESSION: 1. Cardiomegaly without overt pulmonary edema. 2. Layering pleural effusions with mildly improved bibasilar opacities. ACT 112: Negative or not required by law. The above report was generated using voice recognition software. It may contain grammatical, syntax o r spelling errors. Electronically signed by: Luis Eduardo Almanzar M.D. 11/04/2021 2:03 PM
[2021-11-04 14:07] LABS: Albumin Level 3.5 gm/dl (3.4-5.0); BUN Creatinine Ratio 36.8 (10-20); Bilirubin,Total 0.6 mg/dl (0.2-1.0); Calcium 9.8 mg/dl (8.5-10.1); Creatinine Clr Calc Pharmacy 28.4 ml/min; Est GFR (African American) 38.3 ml/min; Globulin 3.4 gm/dl (2.5-4.0); Phosphorus 5.5 mg/dl (2.5-4.9); Potassium 5.9 mmol/L (3.5-5.1); Total Protein 6.9 gm/dl (6.0-8.3)
[2021-11-04 14:11] LABS: Troponin I High Sensitivity 17.4 pg/ml (0-14)
[2021-11-04] MEDS ORDERED: DEXTROSE 50% 50 ML SYRINGE IV STA (14:23)
[2021-11-04] MEDS ORDERED: INSULIN HUMAN REGULAR PER UNIT 10 UNITS in SYRINGE 9.9 ML IV STA (14:23)
[2021-11-04] MEDS ORDERED: methylPREDNISolone 20 MG in SYRINGE 0 ML IV STA (17:08)
--- NOTE | 2021-11-04 17:09 | Hospitalist Progress Note ---
Date of Service November 04, 2021 Assessment & Plan (1) Hypotension: Plan: Julius nevarez was called She was noted to be very lethargic and almost unresponsive and very cold and clammy Blood pressure was around 80s and ABG showed acidosis with high in CO2 level She was started with BiPAP and fluid bolus was given and the condition is improving She was communicating with difficulty and later on blood pressure went up to more than 100 Will monitor (2) Atrial fibrillation with rapid ventricular response: Plan: Remains seen A fib, rate controlled Appreciate cardiology input and recommendation Sotalol has been discontinued and metoprolol titrated to 50 mg twice daily Remains medically stable and is not overtly symptomatic Plan of possible attempted DCCV is not an action right now Metoprolol dose has been increased to 75 mg twice daily We will decrease the metoprolol doses to 50 mg twice daily (3) Congestive heart failure with left ventricular diastolic dysfunction: Plan: HoldChronic, not in exacerbation-examines as euvolemic. Lasix dose was reduced to 20mg PO daily. No signs and or symptoms of fluid overload Cumulative fluid balance is 33 mm Continue Lasix 20 mg a day She was noted to be very dry and Lasix for now (4) Rheumatoid arthritis: Plan: Chronic, stable. Cont MTX weekly and daily prednisone. Will try a small dose of intravenous Solu-Medrol of 20 mg x 1 today (5) H/O: stroke: Plan: Heparin bridge was started with initial INR 1.9. INR was therapeutic and heparin has been discontinued subsequently INR remains at 3.9 as of 11/03/2021-Coumadin is on hold (6) Ambulatory dysfunction: Plan: PT and OT: recommend return jan Likely discharge tomorrow Will need placement (7) DVT prophylaxis: Plan: INR 4.3, Coumadin on hold Full code-she has a living will and most likely going to be DNR after reviewing the Will Dispo- PT/OT recommend return home when medically stable Family members wants her to be placed Discussed with the [id number] in detail Admission and Anticipated Discharge Date Admission Date: October 30, 2021 Subjective 11/03/2021 The patient was seen and examined in telemetry unit She has been feeling much better and complains to have generalized weakness Denies any chest pain, palpitation or shortness of breath at rest 11/04/2021 The patient was seen and examined in telemetry unit during code purple She was noted to be very lethargic and almost unresponsive and very cold and clammy Blood pressure was around 80s and ABG showed acidosis with high in CO2 level She was started with BiPAP and fluid bolus was given and the condition is improving Review of Systems Review of Systems: Unobtainable due to cognitive status Physical Exam Physical Exam: Noted to be very drowsy and almost unresponsive as above Constitutional: well developed, well nourished, + ill appearing and average body habitus Eyes: PERRL, conjunctivae normal, anicteric sclerae ENMT: external ear and nose normal, oropharynx normal Neck: trachea midline, no thyromegaly Respiratory: no respiratory distress Auscultation: + diminished lung sounds and + crackles (Bibasilar crackles) Cardiovascular: Rate/Rhythm: + tachycardic; not irregularly irregular Heart Sounds: normal S1 and normal S2; no murmur Extremities: + edema (1+ edema bilaterally) Gastrointestinal (Abdomen): Inspection/Auscultation: normal bowel sounds; abdomen not distended Percussion/Palpation: abdomen soft; abdomen nontender Neurologic: Alert and awake. Was not communicating initially but later on improved Lymphatic: no cervical or axillary lymphadenopathy Results & Data Results & Data ([facility]) Vital Signs (Past 12 Hours) Vital Signs Temp Pulse Pulse Pulse Resp BP Pulse Ox 11/04/21 15:48 36.4 C L 87 18 119/88 91 11/04/21 13:32 98 H 26 H 94 11/04/21 14:00 101/63 11/04/21 13:40 80 15 100/64 95 11/04/21 13:30 37.4 C 80 18 80/50 L 90 11/04/21 07:00 11/04/21 10:44 36.3 C L 86 16 100/73 96 11/04/21 08:24 110 H 20 121/95 95 11/04/21 07:10 37.0 C 102 H 18 81/67 L 92 O2 Del Method O2 Flow Rate FiO2 11/04/21 15:48 BiPAP 11/04/21 13:32 40 11/04/21 14:00 11/04/21 13:40 BiPAP 11/04/21 13:30 Nasal Cannula 4 11/04/21 07:00 Nasal Cannula 4 11/04/21 10:44 Nasal Cannula 4 11/04/21 08:24 Nasal Cannula 4 11/04/21 07:10 Nasal Cannula Laboratory Results Short CBC 11/04/21 Range/Units 13:14 WBC Cancelled Hgb Cancelled Hct Cancelled Plt Count Cancelled BMP 11/04/21 11/04/21 07:11 13:14 Sodium 137 137 Potassium 5.3 H 5.9 H Chloride 97 L 98 Carbon Dioxide 33 H 31 BUN 47 H 53 H Creatinine 1.26 H D 1.44 H Glucose 130 H 138 H Calcium 9.9 9.8 Liver Function 11/04/21 Range/Units 13:14 Total Bilirubin 0.6 (0.2-1.0) mg/dl AST 19 (13-39) U/L ALT 13 (7-52) U/L Alkaline Phosphatase 69 (34-104) U/L Albumin 3.5 (3.4-5.0) gm/dl Medications Administered Current Inpatient Medications Acetaminophen (Acetaminophen 325 Mg Tab) 650 mg PO Q4H PRN PRN Reason: Pain or Fever Stop: 11/29/21 18:17 Aspirin (Aspirin 81 Mg Ectab) 81 mg PO [facility] Stop: 11/29/21 10:59 Last Admin: 11/04/21 08:09 Dose: 81 mg Folic Acid (Folic Acid 1 Mg Tab) 1 mg PO [facility] Stop: 11/29/21 09:59 Last Admin: 11/04/21 08:10 Dose: 1 mg Furosemide (Furosemide 20 Mg Tab) 20 mg PO [facility] Stop: 12/01/21 08:59 Last Admin: 11/04/21 08:10 Dose: 20 mg Metoprolol Tartrate (Metoprolol Tartrate 25 Mg Tab) 75 mg PO BID [facility] Stop: 12/03/21 09:14 Last Admin: 11/04/21 08:23 Dose: 75 mg Polyethylene Glycol (Polyethylene (Miralax) 17 Gm Pack) 17 gm PO DAILY PRN PRN Reason: Constipation Stop: 11/29/21 18:17 Potassium Chloride (Potassium Chloride Crtab 20 Meq Tabcr) 20 meq PO [facility] Stop: 11/30/21 08:59 Last Admin: 10/31/21 08:07 Dose: 20 meq Prednisone (Prednisone 5 Mg Tab) 5 mg PO [facility] Stop: 11/29/21 10:59 Last Admin: 11/04/21 08:10 Dose: 5 mg
--- NOTE | 2021-11-04 17:37 | Electrocardiogram Report ---
Test Reason : Blood Pressure : / mmHG Vent. Rate : 097 BPM Atrial Rate : 090 BPM P-R Int : 000 ms QRS Dur : 096 ms QT Int : 350 ms P-R-T Axes : 000 -50 037 degrees QTc Int : 444 ms Atrial fibrillation Low voltage QRS Incomplete right bundle branch block Left anterior fascicular block Abnormal ECG When compared with ECG of 01-NOV-2021 03:27, Incomplete right bundle branch block is now Present Nonspecific T wave abnormality, improved in Anterolateral leads Confirmed by Sebastien Plummer ([id number]) on 11/04/2021 5:36:52 PM Referred By: REFERRED SELF Confirmed By:Theo Plummer
[2021-11-04] MEDS ORDERED: METOPROLOL TARTRATE 50 MG TAB PO SCH (21:00)
[2021-11-04] MEDS ORDERED: MoRPHine SULFATE 2 MG/ML CARP IV STA (23:19)
--- NOTE | 2021-11-06 08:00 | Discharge Summary ---
Date of Service November 05, 2021 Admission HPI Per Admitting Provider 86 year old female with h/o PAF on coumadin, chronic diastolic CHF on lasix, ascending aorta dilation, moderate MR, CVA, polymyositis, PMR on chronic prednisone, osteoporosis, who presented to the ED with shortness of breath and weakness for the past week. Patient had cataract surgery last Tuesday a week ago and her symptoms started 2 days later on Tuesday. She felt short of breath and weak and has progressively got worse since then. Dyspnea more with exertion. Last night she could not even lie down in bed due to dyspnea and had to sleep propped up. No fever, chills, chest pain, nausea, vomiting, cough. States her weight is stable. Has some leg swelling which is slightly worse than her normal. She states she has been taking all her medications regularly. She hasn't taken anything today yet. In the ED, she was found to be in Afib with RVR and was given a dose of lopressor. She was placed on oxygen and felt better. She does not feel when she goes into Afib but has not required any procedures for it. Admission Exam Per Admitting Provider Physical Exam: General: Sitting comfortably in bed, not in acute distress, on NC HEENT: EOMI, SUZANNE, MMM Chest: Clear breath sounds bilaterally, no wheezes or crackles CVS: Irregularly irregular, normal heart sounds Abdomen: Soft, non tender, not distended, normal bowel sounds Neuro: Awake, alert, oriented, conversing well, non focal Extremities: 1+ edema in LE Principal Diagnosis Pt Discharge Data Allergies Allergy/AdvReac Type Severity Reaction Status Date / Time vancomycin Allergy Intermediate HIVES Verified 10/26/21 17:30 Sulfa (Sulfonamide Allergy Unknown . Verified 10/26/21 17:30 Antibiotics) trimethoprim Allergy Unknown Verified 10/26/21 17:30 Consultations 10/30/21 08:32 ED Decision to Admit Stat 10/30/21 09:30 Consult Cardiology Routine Hospital Course (1) Hypotension: Julius nevarez was called She was noted to be very lethargic and almost unresponsive and very cold and clammy Blood pressure was around 80s and ABG showed acidosis with high in CO2 level She was started with BiPAP and fluid bolus was given and the condition is improving She was communicating with difficulty and later on blood pressure went up to more than 100 Will monitor (2) Atrial fibrillation with rapid ventricular response: Remains seen A fib, rate controlled Appreciate cardiology input and recommendation Sotalol has been discontinued and metoprolol titrated to 50 mg twice daily Remains medically stable and is not overtly symptomatic Plan of possible attempted DCCV is not an action right now Metoprolol dose has been increased to 75 mg twice daily We will decrease the metoprolol doses to 50 mg twice daily (3) Congestive heart failure with left ventricular diastolic dysfunction: HoldChronic, not in exacerbation-examines as euvolemic. Lasix dose was reduced to 20mg PO daily. No signs and or symptoms of fluid overload Cumulative fluid balance is 33 mm Continue Lasix 20 mg a day She was noted to be very dry and Lasix for now (4) Rheumatoid arthritis: Chronic, stable. Cont MTX weekly and daily prednisone. Will try a small dose of intravenous Solu-Medrol of 20 mg x 1 today (5) H/O: stroke: Heparin bridge was started with initial INR 1.9. INR was therapeutic and heparin has been discontinued subsequently INR remains at 3.9 as of 11/03/2021-Coumadin is on hold (6) Ambulatory dysfunction: PT and OT: recommend return jan Likely discharge tomorrow Will need placement (7) DVT prophylaxis: INR 4.3, Coumadin on hold Full code-she has a living will and most likely going to be DNR after reviewing the Will Dispo- PT/OT recommend return home when medically stable Family members wants her to be placed Discussed with the [id number] in detail Total Time Total Time Spent Total Time Spent (In Minutes): 10 minutes Discharge Plan Discharge Items Patient Disposition: Other Date/Time: 11/05/21 02:15
== END 2021-11-05 03:43 | disposition expired | DRG 308 ==
LOC: ED 06:21 → SUATTDRO 09:01 → EDINP 09:01 → 2S 10:34
DX: M33.20 Polymyositis, organ involvement unspecified; Z79.01 Long term (current) use of anticoagulants; I48.0 Paroxysmal atrial fibrillation; Z79.82 Long term (current) use of aspirin; M06.9 Rheumatoid arthritis, unspecified; I50.33 Acute on chronic diastolic (congestive) heart failure; I95.9 Hypotension, unspecified; Z88.2 Allergy status to sulfonamides; I11.0 Hypertensive heart disease with heart failure